=== PATIENT | male | born 1955 | race Caucasian/White ===

== ENCOUNTER 2023-12-24 05:07 | Inpatient (IN) | payer MEDICARE, OTHER, SELFPAY ==
[2023-12-24] VITALS (13 sets, daily range): BP systolic 118–141; BP diastolic 81–98; PULSE 105–113; RESP 18–26; TEMP 36.4–36.9; O2SAT 90–98; BMI 27.8
--- NOTE | ~2023-12-24 | XR_ITS ---
EXAMINATION: XR chest 1V portable Exam Date/Time: 12/26/2023 17:54 FLOWER ARRANGER HISTORY: irregular respirations Comparison: Same date at 2:51 PM and 5:20 AM. FINDINGS/IMPRESSION: Stable lines and tubes. Slightly increased interstitial edema. Stable bibasilar atelectasis or consolidation. Stable small bilateral pleural effusions, greater on the right. Reviewed, dictated and finalized at location K. ER ARRANGER
--- NOTE | ~2023-12-24 | CT_ITS ---
Non-contrast Head CT History: Weakness Technique: Axial non-contrast imaging of the brain was performed. Dose reduction technique was used on this scan by utilizing automated exposure control and iterative reconstruction technique. The dose -length product (DLP) was 681.00 mGy-cm. Findings: There is no evidence of intracranial hemorrhage, mass lesion, or acute infarct. Brain par enchyma appears normal. The ventricles and subarachnoid spaces are normal in size. The calvarium ap pears normal. The visualized paranasal sinuses and mastoid air cells are clear. Impression: No significant abnormality seen. Reviewed, dictated and finalized at location . HT LINE SERVICE ATTENDANT Impression: No significant abnormality seen.
--- NOTE | ~2023-12-24 | XR_ITS ---
Portable chest x-ray Comparison: None Clinical History: Weakness Findings: There is extensive hazy pulmonary disease bilaterally. There is a 2.2 cm somewhat nodular opacity left upper lobe. Probable minimal right pleural effusion. Cardiomediastinal silhouette is st able. Bones and soft tissues are unremarkable. Impression: 2.2 cm nodular opacity left upper lobe. Chest CT recommended to assess for pulmonary nodule, neoplasm is a consideration. Extensive background pulmonary haziness suggest mild pulmonary edema. Minimal right pleural effusion. Reviewed, dictated and finalized at [facility]. NRY SUPERVISOR Impression: 2.2 cm nodular opacity left upper lobe. Chest CT recommended to assess for pulm onary nodule, neoplasm is a consideration. Extensive background pulmonary haziness suggest mild pulmonary edema. Minimal right pleural effusion.
--- NOTE | ~2023-12-24 | XR_ITS ---
XR chest 1V portable 01/02/2024 05:59 Indication: Evaluate pneumonia. Pneumonia. Procedure: AP portable chest Comparison: Comparison to multiple prior studies sequentially, with oldest reviewed study dated 12/26. Findings: Right IJ central line tip in the SVC. Heart size normal for technique. Diffuse bilateral in terstitial infiltrates. There is focal pleural thickening right upper thorax and left apex. There is fissural thickening on the right with right perihilar soft tissue. There is a mass in the left upper lobe, suspicious for malignancy. Impression: 1: Left upper lobe mass, suspicious for bronchogenic carcinoma. 2: Diffuse bilateral interstitial infiltrates unchanged which may represent edema or pneumonia. 3: Prominence of the right hilum, suspicious for lymphadenopathy. 4: Right pleural effusion/pleural thickening. Reviewed, dictated and finalized at location A. ENGINE OPERATOR Impression: 1: Left upper lobe mass, suspicious for bronchogenic carcinoma. 2: Diffuse bilateral interstitial infiltrates unchanged which may represent ed stef or pneumonia. 3: Prominence of the right hilum, suspicious for lymphadenopathy. 4: Right pleural effusion/pleural thickening.
--- NOTE | ~2023-12-24 | XR_ITS ---
MODIFIED ESOPHAGRAM HISTORY: Coughing with thin liquids TECHNIQUE: Modified barium esophagram was performed by speech pathologist under radiologist fluorosco pic guidance. This was recorded on tape. The exam was reviewed on 12/30/2023 11:12 NUCLEAR FUEL ENRICHMENT TECHNICIAN. The DAP for this procedure was 0.3 Gycm2. Fluoroscopy time is 0.5 minutes. FINDINGS: Lateral projection of the cervical spine demonstrates normal alignment. There is reduced laryngeal elevation and tongue base retraction. Reduced pharyngeal squeeze. There is residue in the v allecula and piriform sinuses. There are are multiple episodes of laryngeal penetration with aspirati on.. IMPRESSION: 1: Laryngeal penetration with aspiration. 2: Please refer to speech pathologist report for additional detail. Reviewed, dictated and finalized at location A. EAR FUEL ENRICHMENT TECHNICIAN
--- NOTE | ~2023-12-24 | XR_ITS ---
EXAMINATION: XR chest port-a-cath/central Exam Date/Time: 12/25/2023 15:45 DUMPER OPERATOR HISTORY: central line insertion Comparison: Same date at 3:13 PM. RESULT: Lines, tubes, and devices: Endotracheal tube remains in good position. Subdiaphragmatic NG tube. Rig ht IJ central line terminating over the distal SVC. Lungs and pleura: Increasing, now moderate diffuse reticular and groundglass opacities. Stable right basilar airspace disease, left medial upper lobe opacities, and right upper lung scarring/atelectasi s. Stable bilateral costophrenic angle blunting. Left upper lung nodule. Cardiomediastinal silhouette: Stable, given interval differences in positioning and technique. Other: No acute osseous or upper abdominal finding. IMPRESSION: Right IJ central line, in good position. Worsening pulmonary edema. Reviewed, dictated and finalized at location K. ER OPERATOR
--- NOTE | ~2023-12-24 | XR_ITS ---
EXAM: XR abdomen gastric tube insert DATE: 12/25/2023 15:21 HISTORY: og tube insertion . COMPARISON: CT cap 12/24/2023. FINDINGS: NG tube tip and side port project over the stomach. Moderate right and small left pleural effusions. Right basilar airspace disease. Unremarkable upper abdominal bowel gas pattern. Right neph rolithiasis. IMPRESSION: NG tube, in good position. Reviewed, dictated and finalized at location K. TRUCTION TRADES TEACHER IMPRESSION: NG tube, in good position.
--- NOTE | ~2023-12-24 | CT_ITS ---
Clinical Indication: Sepsis CT Scan of the Chest, Abdomen, and Pelvis with Contrast: Technique: Contiguous sections were acquired throughout the chest, abdomen, and pelvis after intraven ous administration of 100 cc of Omnipaque 350. Dose reduction technique was used on this scan by lachelle pateling automated exposure control and iterative reconstruction technique. The dose-length product (DL P) was 1294.14 mGy-cm. Findings: There is no evidence of any significant mediastinal, hilar or axillary lymphadenopathy. No aortic ane urysm or dissection. No large pulmonary embolus centrally. No pericardial effusion. Moderate to large right pleural effusion present. Small left pleural effusion present. There is a 2.2 cm left upper lobe pulmonary nodule. There is patchy groundglass opacity in the left upper lobe othe rwise, with patchy consolidation and distortion in the right upper lobe. There are numerous, and somewhat confluent, hypodense masses throughout the liver, compatible with ex tensive hepatic metastatic disease. The spleen, pancreas, gallbladder, adrenals and kidneys are withi n normal limits. No evidence of aortic aneurysm. No lymphadenopathy. No bowel obstruction or bowel wall thickening. There is no evidence to suggest acute appendicitis. Possible urinary bladder wall thickening versus underdistention. Prostate gland and seminal vesicles are unremarkable. There is small amount of pelvic ascites. Fat-containing left inguinal hernia presen t. Right inguinal hernia contains a focal loop of small bowel. There are bilateral L5 pars interarticularis defects, with 11 mm anterolisthesis of L5 over S1. Sugge stion of several subtle amorphous sclerotic osseous lesions, suspicious for osseous metastatic diseas e, most notably at T12, T10, T8, and T3. Impression: 2.2 cm left upper lobe pulmonary nodule, highly suspicious for bronchogenic carcinoma, versus other n eoplasm. Extensive hepatic metastatic disease. Suspected subtle osseous metastatic lesions in the spine, as detailed above. Moderate to large right pleural effusion and small right pleural effusion. Patchy consolidation and distortion in the right upper lobe. This could reflect atelectasis or possib ly post therapy/postoperative change. Correlate with any relevant clinical history. Probable mild pulmonary edema versus infection in the left upper lobe. Right inguinal hernia containing a loop of small bowel. No bowel obstruction or bowel wall thickening . Possible cystitis. Correlate with urinalysis. Reviewed, dictated and finalized at location M. L FABRICATOR HELPER Impression: 2.2 cm left upper lobe pulmonary nodule, highly suspicious for bronchogenic car cinoma, versus other neoplasm. Extensive hepatic metastatic disease. Suspected subtle osseous metastatic lesions in the spine, as detailed above. Moderate to large right pleural effusion and small right pleural effusion. Patchy consolidation and distortion in the right upper lobe. This could reflect atelectasis or possibly post therapy/postoperative change. Correlate with any relevant clinical history. Probable mild pulmonary edema versus infection in the left upper lobe. Right inguinal hernia containing a loop of small bowel. No bowel obstruction or bowel wall thickening. Possible cystitis. Correlate with urinalysis.
--- NOTE | ~2023-12-24 | XR_ITS ---
EXAMINATION: XR chest 1V portable DATE: 12/26/2023 05:55 INDICATION: Respiratory failure TECHNIQUE: frontal view of the chest was obtained. COMPARISON: Chest radiograph dated 12/25/2023 FINDINGS: Endotracheal tube tip 2.5 cm above the hima. Nasogastric tube extends below the left hemidiaphragm with distal tip collimated off the study. Right internal jugular central venous catheter with distal tip at the caudal superior vena cava. Minimal decrease in interstitial and patchy airspace opacities throughout the right lung and perihila r predominant opacities opacities in the left lung. Again seen is a masslike opacity left upper lung zone with appearance on CT concerning for malignancy. Small to moderate-sized right pleural effusion. No pneumothorax. The cardiomediastinal silhouette is within normal limits for AP technique. IMPRESSION: 1. Minimal decrease in bilateral interstitial and patchy airspace opacities throughout both lungs, ri ght greater than left consistent with atelectasis, pneumonia, pulmonary edema or most likely some com bination thereof. 2. Small to moderate-sized right pleural effusion. 3. Masslike opacity in the left upper lung zone concerning for CT . Reviewed, dictated and finalized at location A. GATOR SPRINKLING SYSTEM IMPRESSION: 1. Minimal decrease in bilateral interstitial and patchy airspace opacities thr oughout both lungs, right greater than left consistent with atelectasis, pneumo jaylen, pulmonary edema or most likely some combination thereof. 2. Small to moderate-sized right pleural effusion. 3. Masslike opacity in the left upper lung zone concerning for CT .
--- NOTE | ~2023-12-24 | XR_ITS ---
EXAMINATION: [id number] Exam Date/Time: 12/26/2023 14:45 PROFESSOR OF INDUSTRIAL TECHNOLOGY HISTORY: Thoracentesis Comparison: 12/26/2023 at 5:20 AM; CT cap 12/24/2023. RESULT: Lines, tubes, and devices: Endotracheal tube, nasogastric tube, and right IJ central venous line rem ain in good position. Lungs and pleura: Unchanged left upper lobe mass and moderate diffuse reticular opacities. Mild left costophrenic angle blunting. Overall decreased opacities in the right lung and decreased right costo phrenic angle blunting. Subsegmental bibasilar airspace disease. Cardiomediastinal silhouette: Stable. Other: No acute osseous or upper abdominal finding. IMPRESSION: No definite pneumothorax post thoracentesis. Decreased size of the right pleural effusion. Stable nikhil es and tubes. Stable edema and bibasilar atelectasis, infection is not excluded. Possible small left pleural effusion. Reviewed, dictated and finalized at location K. ESSOR OF INDUSTRIAL TECHNOLOGY IMPRESSION: No definite pneumothorax post thoracentesis. Decreased size of the right pleura l effusion. Stable lines and tubes. Stable edema and bibasilar atelectasis, inf ection is not excluded. Possible small left pleural effusion.
--- NOTE | ~2023-12-24 | XR_ITS ---
EXAMINATION: XR chest 1V portable DATE: 12/27/2023 05:47 INDICATION: Respiratory failure TECHNIQUE: frontal view of the chest was obtained. COMPARISON: Chest radiograph dated 12/26/2023 FINDINGS: Endotracheal tube tip 4.1 cm above the hima. Nasogastric tube extends below the left hemidiaphragm with distal tip collimated off the study. Right internal jugular central venous catheter with distal tip at the caudal superior vena cava. Interval improvement in the prior extensive pattern consistent with decreasing pulmonary edema. Addit ional superimposed groundglass and mild patchy airspace opacities in both lungs which could represent atelectasis and/or pneumonia likely superimposed over small bilateral pleural effusions.. Small mass like opacity in the left upper lung zone consistent with malignancy. The cardiomediastinal silhouette is normal. IMPRESSION: 1. Decrease in prior mild pulmonary edema. 2. Persistent bilateral hazy and patchy airspace opacities consistent with likely small bilateral ple ural effusions with associated atelectasis and/or pneumonia. 3. Small masslike opacity in the left upper lung zone concerning for malignancy. Reviewed, dictated and finalized at location A. L TACKER IMPRESSION: 1. Decrease in prior mild pulmonary edema. 2. Persistent bilateral hazy and patchy airspace opacities consistent with like ly small bilateral pleural effusions with associated atelectasis and/or pneumon ia. 3. Small masslike opacity in the left upper lung zone concerning for malignancy .
--- NOTE | ~2023-12-24 | XR_ITS ---
Portable chest x-ray Comparison: 12/27/2023 Clinical History: Respiratory failure Findings: Endotracheal tube, NG tube, and right-sided central venous line are in satisfactory positi ons. There is focal hazy airspace opacity at the left lung apex. Probable mild central congestive corina nge. There is probable thickening of the right upper lobe region. Cardiomediastinal silhouette is st able. Bones and soft tissues are unremarkable. Impression: Focal left upper lobe airspace opacity, compatible with pulmonary nodule as seen on recent CT dated . Pleural thickening at the right upper lobe region, nonspecific, possibly small loculated effusion. Support tubes, as above. Reviewed, dictated and finalized at location . REBUILDER Impression: Focal left upper lobe airspace opacity, compatible with pulmonary nodule as see n on recent CT dated 12/24/2023. Pleural thickening at the right upper lobe region, nonspecific, possibly small loculated effusion. Support tubes, as above.
--- NOTE | ~2023-12-24 | XR_ITS ---
Portable chest x-ray Comparison: 12/28/2023 Clinical History: Respiratory failure Findings: Right IJ line remains in place. Left upper lobe 2 cm pulmonary nodule is present. There is probable mild central congestive change and mild pulmonary edema. Cardiomediastinal silhouette is s table. Bones and soft tissues are unremarkable. Impression: Stable 2 cm left upper lobe pulmonary nodule. Mild central congestive change and mild pulmonary edema. Right IJ line. Reviewed, dictated and finalized at location M. RY TEAM LEADER Impression: Stable 2 cm left upper lobe pulmonary nodule. Mild central congestive change and mild pulmonary edema. Right IJ line.
--- NOTE | ~2023-12-24 | US_ITS ---
EXAMINATION: US thoracentesis DATE: 12/26/2023 14:36 INDICATION: Right pleural effusion TECHNIQUE: The procedure and its risks and benefits were discussed with the patient. Potential risks discussed included bleeding, infection, and pneumothorax. The patient understood the risks and agreed to proceed. The skin was prepped and draped in sterile fashion. 1% lidocaine was used for local anes thesia. Under ultrasound guidance, a 5 Fr catheter with trochar was advanced into the right pleural e ffusion. Fluid was aspirated. The catheter was removed, and a dressing was applied. There were no imm ediate complications. FINDINGS: Ultrasound images demonstrate a large right pleural effusion and the catheter within the fluid. IMPRESSION: 1. Successful ultrasound-guided thoracentesis yielding 1000 mL of yellowish fluid. Reviewed, dictated and finalized at location A. OVOLTAIC FABRICATION TECHNICIAN IMPRESSION: 1. Successful ultrasound-guided thoracentesis yielding 1000 mL of yellowish fl uid.
--- NOTE | ~2023-12-24 | XR_ITS ---
EXAMINATION: XR chest ET placement Exam Date/Time: 12/25/2023 15:10 ACUTE SPECIALIST HISTORY: ET PLACEMENT Comparison: 12/24/2023; CT cap 12/24/2023. RESULT: Lines, tubes, and devices: Endotracheal tube terminating 4.0 cm above the hima. Subdiaphragmatic N G tube. Lungs and pleura: Segmental right basilar airspace disease. Bilateral costophrenic angle blunting, g reater on the right. Left upper lobe mass. Diffuse reticular opacities. Right upper lobe scar. Medial left upper lobe groundglass opacities. Cardiomediastinal silhouette: Stable. Other: No acute osseous or upper abdominal finding. IMPRESSION: Endotracheal tube in good position. Mild edema. Right basilar atelectasis/aspiration favored given th e rapid onset, infection not excluded. Moderate right and small left pleural effusions. Reviewed, dictated and finalized at location K. E SPECIALIST IMPRESSION: Endotracheal tube in good position. Mild edema. Right basilar atelectasis/aspir ation favored given the rapid onset, infection not excluded. Moderate right and small left pleural effusions.
--- NOTE | ~2023-12-24 | XR_ITS ---
Portable chest x-ray Comparison: 01/02/2024 Clinical History: Shortness of breath Findings: Small right pleural effusion present with hazy bilateral perihilar and right basilar airsp miguel disease. Right IJ line unchanged. Stable left upper lobe pulmonary nodule. Cardiomediastinal chaya houette is stable. Bones and soft tissues are unremarkable. Impression: Stable left upper lobe pulmonary nodule measuring approximately 2 cm, suspicious for carcinoma. Probable mild pulmonary edema and small right pleural effusion. Correlate clinically for pneumonia. Reviewed, dictated and finalized at [facility]. PING COORDINATOR Impression: Stable left upper lobe pulmonary nodule measuring approximately 2 cm, suspiciou s for carcinoma. Probable mild pulmonary edema and small right pleural effusion. Correlate clini amber for pneumonia.
--- NOTE | 2023-12-24 05:12 | ECG_ITS ---
Measurements Intervals [place] Rate: 109 P: 17 PA: 120 QRS: -1 QRSD: 102 T: 0 QT: 323 QTc: 437 Interpretive Statements SINUS TACHYCARDIA NONSPECIFIC ST & T-WAVE ABNORMALITY ABNORMAL ECG NO PREVIOUS ECG AVAILABLE FOR COMPARISON Electronically Signed On 12-24-2023 12:39:16 DOORPERSON OR LUGGAGE PORTER by Mic Taylor M.D.
[2023-12-24] MEDS: SODIUM CHLORIDE 0.9% IV 1,000 ML 999 ML IV CONT (05:30)
[2023-12-24 05:53] LABS: Basophils Percent Auto 0.1 % (0.2-1.2); Eosinophils Absolute Auto 0.2 K/mm3 (0-0.3); Eosinophils Percent Auto 1.4 % (0-4.4); Hematocrit 41.4 % (42.0-52.0); Hemoglobin 12.5 g/dL (14.0-18.0); Immature Granulocyte Absolute 0.08 K/mm3 (0.00-0.031); Immature Granulocyte Percent A 0.6 % (0-0.5); Lymphocytes Absolute Auto 1.13 K/mm3 (0.9-3.2); Lymphocytes Percent Auto 8.4 % (18.3-44.2); Mean Corpuscular HGB Conc 30.2 g/dl (32-36); Mean Corpuscular Hemoglobin 26.5 pg (26-34); Mean Corpuscular Volume 87.9 fl (80-100); Mean Platelet Volume 10.8 fl (7.4-10.4); Monocytes Absolute Auto 0.9 K/mm3 (0.1-0.6); Monocytes Percent Auto 6.3 % (2.6-8.5); Neutrophils Absolute Auto 11.2 K/mm3 (1.3-6.7); Neutrophils Percent Auto 83.2 % (45.5-73.1); Platelet Count Result 143 k/mm3 (150-375); Red Blood Count 4.71 M/mm3 (4.6-6.20); Red Cell Distribution Width 19.7 % (11.5-14.5); White Blood Count 13.5 K/mm3 (4.5-10.0)
[2023-12-24 05:57] LABS: Ethanol < 10 mg/dL (<10)
--- NOTE | 2023-12-24 05:58 | ED.WEAKNESS ---
HPI - Weakness General Chief complaint: Weakness Stated complaint: GENERALIZED WEAKNESS Source: patient Limitations: no limitations History of Present Illness HPI Narrative: Patient is a 68-year-old male presents to the emergency department complaining of generalized weakness, nausea, decreased oral intake. Patient states he is feeling generally weak lately. Patient states he has had decreased oral intake for the past 2 days and [place] has not had anything to eat or drink because he has difficulty getting to his food. Patient states he just got a caregiver today was the 1st day having 1 and still feels like he is not thriving. Patient notes that he is been progressively getting more weak and having difficulties with his activities of daily living. Patient admits to a cough productive of white sputum. Patient is to history of smoking and has chronic wheezing. Patient denies chest pain, difficulty breathing, abdominal pain, urinary incontinence, fever, stool incontinence, melena, hematochezia, urinary discomfort, focal weakness, numbness, headache, confusion, vision changes, vomiting, rash, back pain, unilateral lower extremity swelling. Patient admits to some mild diarrhea approximately 3-4 episodes that are nonbloody daily. Patient denies any recent antibiotic use. Related Data Allergies Allergy/AdvReac Type Severity Reaction Status Date / Time No Known Allergies Allergy Verified 12/24/23 05:15 Review of Systems Review of Systems: A 10 system review of systems was completed on the patient and is negative except for what is stated in the HPI. Nursing and ancillary documentation was reviewed. PMFSH Comments At time of signature, I have reviewed and agree with nursing past medical, surgical, social and family history unless otherwise noted. Please see the nursing chart for further information. There is no relevant family history pertinent to the presenting complaint. Exam Narrative: CONST: No acute distress. Well nourished. HENMT: Head is normocephalic and atraumatic. Dry mucous membranes. No posterior oropharynx erythema. EYES: No conjunctival icterus, injection, or pallor. PERRL. extraocular motions intact. NECK: No meningeal signs. RESP: Able to speak in full sentences. Scant end-expiratory wheeze with a mildly prolonged expiratory phase. No focal adventitious breath sounds. Mild tachypnea. No accessory muscle uses for ventilation. CARDIO: Tachycardic rate. Regular rhythm. 2+ DP and radial pulses bilaterally. GI: Nondistended. No tenderness to palpation. Soft. : No CVA tenderness to palpation. SKIN: No rashes or lesions noted on exposed skin. NEURO: Oriented x3. Moves all extremities. No focal neurological deficits. EXTREM/MSK/BACK: No pedal edema. no midline vertebral tenderness to palpation or step-offs. PSYCH: Normal affect. Course Vital Signs Vital signs: Vital Signs Temperature 97.6 F 12/24/23 05:02 Pulse Rate 111 H 12/24/23 05:02 Respiratory Rate 23 H 12/24/23 05:02 Blood Pressure 136/98 H 12/24/23 05:02 Pulse Oximetry 95 12/24/23 05:02 Oxygen Delivery Room Air 12/24/23 05:02 Temperature 97.6 F 12/24/23 05:02 Pulse Rate 113 H 12/24/23 06:44 Respiratory Rate 24 H 12/24/23 06:44 Blood Pressure 141/98 H 12/24/23 06:44 Pulse Oximetry 96 12/24/23 06:44 Oxygen Delivery Room Air 12/24/23 05:02 MDM - Weakness MDM Narrative Medical decision making narrative: Patient presents with the above complaint. Initial vitals are remarkable for Tachycardia and tachypnea. Physical examination as noted above. Plan discussed: laboratory analysis, EKG, chest x-ray, CT of the head without contrast, continues cardiac monitoring, continuous pulse oximetry, prednisone 60 mg p.o., DuoNeb breathing treatment, 1 L bolus IV fluids normal saline for hydration, blood cultures. Less than 30ml/kg crystalloid bolus was ordered because it would be detrimental or harmful
[2023-12-24 06:00] LABS: Alanine Aminotransferase 190 U/L (6-50); Albumin Level 3.4 g/dL (3.5-5.1); Alkaline Phosphatase 192 U/L (38-126); Anion Gap 7 mmol/L (8-16); Aspartate Amino Transferase 40 U/L (17-59); Bilirubin,Total 1.2 mg/dL (0.2-1.3); Blood Urea Nitrogen 12 mg/dL (9-20); Calcium 8.4 mg/dL (8.4-10.2); Carbon Dioxide 27 mmol/L (22-30); Chloride 105 mmol/L (98-107); Estimated CRCL calculation 82 ml/min; Estimated Glomerular Filt Rate > 60; Glucose 206 mg/dL (65-110); Lipase 182 U/L (23-300); Magnesium 1.9 mg/dL (1.6-2.3); Sodium 139 mmol/L (137-145)
[2023-12-24 06:02] LABS: INR 1.1
[2023-12-24 06:03] LABS: Partial Thromboplastin Time 33.8 SECONDS (22.3-36.8)
[2023-12-24 06:06] LABS: Lactic Acid Reflex 2.1 mmol/L (0.7-2.0)
[2023-12-24 06:09] LABS: Troponin I 0.034 ng/mL (0.000-0.034)
[2023-12-24] MEDS: IPRATROPIUM 0.5 MG/ALBUTEROL SULFATE 2.5 MG AMPUL.NEB 3 ML 6 ML INHALATION (06:14)
[2023-12-24 06:21] LABS: Creatine Kinase 75 U/L (55-170)
[2023-12-24 06:34] LABS: Influenza A QL RT-PCR Negative (Negative); Influenza B QL RT-PCR Negative (Negative); RSV RNA, RT-PCR Negative (Negative); SARS-CoV-2 RNA PCR Negative (Negative)
[2023-12-24 06:55] LABS: Appearance Urine Cloudy (Clear); Bacteria Urine Rare /hpf; Bilirubin Urine Negative (Negative); Blood Urine 2+ (Negative); Budding Yeast Urine Present /hpf; Color Urine Dark Yellow (Yellow); Glucose Urine UA Trace mg/dL (Negative); Ketones Urine Trace mg/dL (Negative); Leukocyte Esterase Ur 2+ LEU/UL (Negative); Need Manual Microscopic Reviewed; Nitrate Urine Negative (Negative); Protein Urine 2+ mg/dL (Negative); Specific Grav Ur 1.025 (1.001-1.035); Squamous Epithelial Cell Urine Occasional /hpf (Few); WBC Urine >100 /hpf; pH Urine 5.5 (5.0-9.0)
[2023-12-24 07:00] LABS: Add Urine Microscopic? YES
[2023-12-24] MEDS: predniSONE 20 MG TABLET 60 MG PO (07:05)
[2023-12-24 07:11] LABS: CRP 16.2 mg/dL (<1.0)
--- NOTE | 2023-12-24 07:15 | PC.NURSE ---
Report given to ROSALEE Martell at this time. Pt resting in bed comfortably on monitor. Pt updated on status.
[2023-12-24 07:26] LABS: Procalcitonin 0.2 ng/mL
[2023-12-24 08:44] LABS: Reflex Lactic Acid Yes or No Add Lactic
[2023-12-24] MEDS: SODIUM CHLORIDE 0.9% IV 1,000 ML 125 ML IV CONT ×2 (10:23→19:17)
[2023-12-24 11:27] LABS: Glucose Point of Care 235 mg/dl (65-105)
--- NOTE | 2023-12-24 13:29 | ADMGEN ---
This patient, Shahzad Smith, was admitted to 3 [facility] Surg Room 331-01. Patient/family oriented to hospital policies and general routines including ID bracelet, bed and alarms, visiting hours, pain management, procedures, bathroom and other care routines, personal items, smoking policy, room service/diet, and visiting hours. Information on how to activate the Rapid Response Team has been discussed. Patient/Family are encouraged to report perceived risks to care and to ask questions if they do not understand what they are told or what they should do. Report from Marylin in the ER.
[2023-12-24 16:43] LABS: Glucose Point of Care 367 mg/dl (65-105)
--- NOTE | 2023-12-24 17:52 | PC.NURSE ---
This nurse called and told Dr. Trimble twice about pt BS being 235 at lunch and 367 for dinner. told this nurse that he would put order in at lunch time. This nurse was told by Dr. Trimble at dinner to call Jasmine LARSON. This nurse called Dr. Burroughs about this issue. This nurse still does not have orders for insulin. Pt takes metformin at home twice a day.
[2023-12-24] MEDS: MIRTAZAPINE 15 MG TABLET PO (19:53)
[2023-12-24] MEDS: rOPINIRole HCL 0.25 MG TABLET 0.75 MG PO (19:56)
[2023-12-24 20:54] LABS: Glucose Point of Care 355 mg/dl (65-105)
[2023-12-24] MEDS: INSULIN ASPART (*BKC) 100 UNITS/ML SUB-Q (20:56)
--- NOTE | 2023-12-24 23:31 | PM.IMHP ---
H&P: HPI History of Present Illness Date/Time: 12/24/23 at 21:45 Chief Complaint: Increased weakness Narrative: 68-year-old male with a past medical history of liver cancer with metastases to bone, COPD, essential hypertension, type 2 diabetes mellitus and diabetic peripheral neuropathy who presented to the ER from home via EMS due to progressive weakness and inability care for himself. The patient reports he was diagnosed with liver cancer last urine has been receiving chemotherapy treatments every 3-4 weeks at the [facility]. His last chemotherapy treatment was at the end of October. He is scheduled to have chemotherapy again on the . He reports that he has 2-3 loose stools a day which is unchanged from his baseline with brown stools. Over the last several days he has now developed recurrent vomiting. He stated that he had a EGD at the [facility] last week which demonstrated no ulcers or obstruction. His emesis is frequently dark in color. He reports that his stools are chronically dark in color due to chronic iron supplementation. He reports that he has just become progressively weaker in over the last 4-5 days has become so weak that he cannot even stand up to walk to get to the food. He had called EMS multiple times to his home in the last 2-3 days to help in. He states that he feels like he is starving. He is reported increased weakness over the course of several months. He denies any difficulty with urination, symptoms of urinary retention or chest pain. He denies a history of cardiac disease or heart failure. He has had a prior stroke and has chronic right-sided weakness. The patient was on CPAP at the time my evaluation. He reports he is chronically on CPAP at night for sleep. He has labored respirations noted he states that this is chronic. He reports that his breathing feels unchanged from baseline. He has not been having any cough congestion lower extremity swelling or orthopnea. Review of Systems Review of Systems: 12 systems were reviewed with pertinent positives and negatives per HPI. Except as documented in the HPI, all other systems were reviewed and are negative. [facility] Past Medical History Medical History (Updated 12/25/23 @ 00:00 by Dianne Rodrigues DO) Anxiety COPD (chronic obstructive pulmonary disease) CVA (cerebral vascular accident) (~2017) Residual right-sided weakness Diabetic peripheral neuropathy Hepatocellular carcinoma metastatic to bone (~2019) Obstructive sleep apnea on CPAP Type 2 diabetes mellitus Surgical History Surgical History (Updated 12/24/23 @ 23:45 by Dianne Rodrigues DO) Status post cataract extraction of both eyes with insertion of intraocular lens (~2020) Family History Family History (Updated 12/24/23 @ 13:31 by Crista Ellis RN) Mother Diabetes mellitus Father Cancer Social History Social History (Updated 12/24/23 @ 23:46 by Dianne Rodrigues DO) Social History: Patient reports that he served in the [employer] for 8 years. He receives his medical care at the [place]. he lives alone. He ambulates with a walker. He smoked less than 1 pack of cigarettes per day but started smoking as the teenager and quit and 2022. He never drank 2 at excess and quit drinking completely after he left the [employer]. He denies any illicit substance use. Code status: Full code per nursing report Patient does have a living will in place. Smoking status: Former smoker Alcohol intake: former Substance use: former Substance use type: marijuana Last use: 12/24/22 Do You Feel Safe in your Home?: No Lack of Transportation: YES Lack of Food: Never True Current Housing: I Have Housing Concerned About Future Housing: YES Difficulty Paying Gas/Electric Bills: No Difficulty Paying for Meds: No Currently Unemployed: No Education: High School Diploma/GED Difficulty w/ Childcare or Family Care: No Spiritual care concerns: No Meds Home Medications an
[2023-12-25] VITALS (33 sets, daily range): BP systolic 84–143; BP diastolic 59–106; PULSE 76–109; RESP 11–27; TEMP 35.4–36.9; O2SAT 78–100
--- NOTE | 2023-12-25 | ECHO_ITS ---
Patient Info Name: Shahzad Smith Age: 68 years : 1955 Gender: Male Ht: 67 in Wt: 180 lbs BSA: 1.98 m2 HR: 54 bpm BP: 121 / 99 mmHg Heart Rhythm: Sinus Rhythm Technical Quality: Fair Exam Date: 12/25/2023 1:23 PM Exam Location: Echo Lab Patient Status: Inpatient Admit Date: 12/24/2023 Staff Ordering Physician: Zaire Crowell APRN It Help Desk Associate: Maki Mccloud RDCS Attending Provider: Shahzad Trimble MD Referring Physician: Socrates MANDUJANO; Exam Type: CA echo doppler color flow Study Info Indications - pleural effusion and dyspnea Complete two-dimensional, color flow and Doppler transthoracic echocardiogram is performed. Summary 1. Complete two-dimensional, color flow and Doppler transthoracic echocardiogram is performed. 2. Four-chamber dilated cardiomyopathy. 3. Markedly reduced left ventricular systolic function with stigmata of low cardiac output, reduced mitral leaflet excursion and pre closure. 4. Mild mitral regurgitation resulting from annular dilation. Left Ventricle Left ventricular chamber dimension is severely enlarged. Left ventricular systolic function is severely reduced, estimated at <15%. Right Ventricle Right ventricular chamber dimension is mildly enlarged. Right ventricular systolic function is reduced. Left Atria Left atrial chamber dimension is mildly enlarged. Right Atria Right atrial chamber dimension is mildly enlarged. Aortic Valve The aortic valve is normal. Pulmonic Valve The pulmonic valve is normal. Mitral Valve The mitral valve has normal leaflets. There is mild to moderate mitral valve regurgitation. Tricuspid Valve The tricuspid valve leaflets are normal. There is mild tricuspid valve regurgitation. Pericardium/Pleural The pericardium appears normal. Aorta The aortic root size at the sinus of Valsalva is normal. Left Ventricular Outflow Tract Name Value Normal LVOT 2D LVOT Diameter 1.9 cm LVOT Doppler LVOT Peak Gradient 2 mmHg LVOT Mean Gradient 1 mmHg LVOT VTI 8 cm LVOT VTI/AV VTI Ratio 0.6 LVOT Stroke Volume 24 ml LVOT CO 2.3 l/min LVOT CI 1.2 l/min/m2 Pulmonic Valve Name Value Normal RVOT Doppler RVOT Peak Gradient 0 mmHg PV Doppler PV Peak Gradient 1 mmHg Mitral Valve Name Value Normal MV Doppler MV Decel [place] 315 cm/s2 MV PHT 67 ms
[2023-12-25] MEDS: AZITHROMYCIN 500 MG/NS 250 ML 500 MG/250 ML BAG 250 MG IVPB ×2 (00:27→23:17)
[2023-12-25] MEDS: IPRATROPIUM 0.5 MG/ALBUTEROL SULFATE 2.5 MG AMPUL.NEB 3 ML INHALATION ×4 (02:00→20:53)
[2023-12-25] MEDS: SODIUM CHLORIDE 0.9% IV 1,000 ML 100 ML IV CONT ×2 (05:27→12:55)
[2023-12-25 06:37] LABS: Hematocrit 35.7 % (42.0-52.0); Hemoglobin 10.7 g/dL (14.0-18.0); Mean Corpuscular Hemoglobin 26.1 pg (26-34); Mean Corpuscular Volume 87.1 fl (80-100); Mean Platelet Volume 11.2 fl (7.4-10.4); Platelet Count Result 136 k/mm3 (150-375); Red Cell Distribution Width 19.6 % (11.5-14.5); White Blood Count 16.2 K/mm3 (4.5-10.0)
[2023-12-25 06:46] LABS: Alanine Aminotransferase 129 U/L (6-50); Albumin Level 2.9 g/dL (3.5-5.1); Alkaline Phosphatase 151 U/L (38-126); Anion Gap 5 mmol/L (8-16); Aspartate Amino Transferase 30 U/L (17-59); Bilirubin,Total 0.7 mg/dL (0.2-1.3); Blood Urea Nitrogen 14 mg/dL (9-20); Calcium 7.8 mg/dL (8.4-10.2); Carbon Dioxide 24 mmol/L (22-30); Chloride 107 mmol/L (98-107); Estimated CRCL calculation 73 ml/min; Estimated Glomerular Filt Rate > 60; Glucose 288 mg/dL (65-110); Potassium 4.4 mmol/L (3.4-5.0); Sodium 136 mmol/L (137-145)
[2023-12-25 06:56] LABS: Hemoglobin A1C 8.5 % (<5.7)
[2023-12-25 07:47] LABS: Glucose Point of Care 282 mg/dl (65-105)
[2023-12-25] MEDS: ASPIRIN 81 MG ENTERIC TABLET PO (08:52)
[2023-12-25] MEDS: METOPROLOL TARTRATE 25 MG TABLET PO (08:52)
[2023-12-25] MEDS: FOLIC ACID 1 MG TABLET PO (08:52)
[2023-12-25] MEDS: MIRTAZAPINE 7.5 MG TABLET PO (08:52)
[2023-12-25] MEDS: PANTOPRAZOLE 40 MG TABLET PO (08:52)
[2023-12-25] MEDS: GABAPENTIN 100 MG CAPSULE PO ×2 (08:52→12:24)
[2023-12-25] MEDS: metFORMIN HCL 500 MG TABLET 1000 MG PO (08:52)
[2023-12-25] MEDS: INSULIN ASPART (*BKC) 100 UNITS/ML SUB-Q ×4 (09:01→20:25)
[2023-12-25] MEDS: ALBUTEROL SULFATE NEB 2.5 MG/3 ML INH INHALATION (10:20)
[2023-12-25] MEDS: LORazepam (*CRX) 1 MG TABLET PO (10:40)
[2023-12-25] MEDS: PROCHLORPERAZINE EDISYLATE 10 MG/2 ML VIAL IV PUSH (11:15)
[2023-12-25] MEDS: ENOXAPARIN 40 MG/0.4 ML SYRINGE SUB-Q (11:15)
--- NOTE | 2023-12-25 11:38 | PM.IMPN ---
Progress Note: A&P Assessment and Plan (1) Sepsis: Qualifiers: Sepsis acute organ dysfunction status: without acute organ dysfunction Sepsis type: sepsis due to unspecified organism Qualified Code(s): A41.9 - Sepsis, unspecified organism Code(s): A41.9 - Sepsis, unspecified organism Status: Acute Assessment and Plan: Rocephin and azithromycin for UTI/possible pneumonia (2) Anxiety: Code(s): F41.9 - Anxiety disorder, unspecified Status: Acute Assessment and Plan: Severe anxiety. Ordered p.r.n. and Ativan. Increased oxygen as patient states he wears 3 liters/minute nasal at home. (3) Pleural effusion, right: Code(s): J90 - Pleural effusion, not elsewhere classified Status: Acute Assessment and Plan: Ordered IV Lasix, stop IV fluids, Ordered Echocardiogram. Patient may require IR drainage. (4) Hepatocellular carcinoma metastatic to bone: Onset Date: ~2019 Code(s): C79.51 - Secondary malignant neoplasm of bone; C22.0 - Liver cell carcinoma Status: Acute Assessment and Plan: Significant metastatic disease to liver with Mets to the bone as well large lung nodule, undergoing chemotherapy but currently on hold (5) Adult failure to thrive: Code(s): R62.7 - Adult failure to thrive Status: Acute Assessment and Plan: Severe weakness at home unable to care himself requires placement. [facility] (6) Abnormal finding on urinalysis: Code(s): R82.90 - Unspecified abnormal findings in urine Status: Acute Assessment and Plan: Rocephin pending urine culture (7) Dehydration: Code(s): E86.0 - Dehydration Status: Acute Assessment and Plan: Improved status post IV fluids. IV fluids discontinued due to moderate to large right pleural effusion. Ordered echocardiogram and IV Lasix (8) Type 2 diabetes mellitus with hyperglycemia: Qualifiers: Diabetes mellitus manager intermediate insulin use: without chcf use Qualified Code(s): E11.65 - Type 2 diabetes mellitus with hyperglycemia Code(s): E11.65 - Type 2 diabetes mellitus with hyperglycemia Status: Acute Assessment and Plan: Hyperglycemia currently, possibly stress/infection plus steroid induced. ACHS fingerstick glucose. A1c 8.5 (9) Obstructive sleep apnea on CPAP: Code(s): G47.33 - Obstructive sleep apnea (adult) (pediatric) Status: Acute Assessment and Plan: Autopap available (10) COPD (chronic obstructive pulmonary disease): Qualifiers: COPD type: unspecified COPD Qualified Code(s): J44.9 - Chronic obstructive pulmonary disease, unspecified Code(s): J44.9 - Chronic obstructive pulmonary disease, unspecified Status: Acute Assessment and Plan: Continue home oxygen and azithromycin Time Spent With Patient Time with patient: Greater than 35 minutes Subjective Date/time seen: 12/25/23 11:38 Interval history: Patient complaining of extreme anxiety and wanting albuterol treatment for shortness of breath. Patient reports he is overly short breath but the albuterol tends to. Patient also nausea with saliva emesis. Ordered Ativan and IV Compazine. Review of Systems Review of Systems: ROS unobtainable: Yes unobtainable due to mental status (Severe anxiety) Exam Narrative: Weight 80.8 kg BMI 27.9 Const: Other: Chronically ill-appearing, debilitated, height weight proportionate, appears older than stated age HENMT: Other: Dry mucous membranes, edentulous, no oral pharyngeal erythema, head is normocephalic atraumatic Eyes: Other: Pupils equal and reactive, marked conjunctival pallor, no scleral icterus Neck: Other: No JVD, supple, nontender Resp: Other: Tachypneic, accessory muscle use, expiratory wheezing left lung, expiratory wheezing and significant crackles in the right lung C
[2023-12-25 11:42] LABS: Glucose Point of Care 290 mg/dl (65-105)
[2023-12-25] MEDS: LORazepam INJ (*CRX) 2 MG/ML VIAL 1 MG IV PUSH (12:52)
[2023-12-25] MEDS: FUROSEMIDE INJ 40 MG/4 ML VIAL IV PUSH (14:00)
[2023-12-25 14:43] LABS: Alveolar/Arterial O2 Gradient 189.8 mmHg; Base Excess ABG -6.2 mEq/l (+/-2.0); Fractional Inspired Oxygen 40 %; HCO3 ABG 18.8 mEq/l (22.0-26.0); Oxygen Content ABG 14.7 %vol (16.0-22.0); PCO2 ABG 35.5 mmHg (35.0-45.0); PO2 ABG 54.6 mmHg (80.0-100.0); PO2 FiO2 Ratio Arterial Blood 1.37 %; Total Hemoglobin 12.4 g/dL (12.0-18.0); pH ABG 7.342 (7.350-7.450)
[2023-12-25 14:44] LABS: Glucose Point of Care 239 mg/dl (65-105)
[2023-12-25 14:46] LABS: Site Drawn RIGHT RADIAL
[2023-12-25 14:47] LABS: Device NASAL CANNULA; Modified Allen's Test Pass
[2023-12-25] MEDS: SODIUM CHLORIDE 0.9% IV 1,000 ML 999 ML IV CONT (15:00)
[2023-12-25] MEDS: MIDAZOLAM HCL (*CRX) 2 MG/2 ML VIAL 4 MG IV PUSH (15:00)
[2023-12-25 15:03] LABS: Oxyhemoglobin 84.5 % THb (90.0-100.0)
--- NOTE | 2023-12-25 15:09 | WPDPROCEDUR ---
Procedures Intubation Intubation Date: 12/25/23 Intubation Time: 15:00 Consent: Patient full code, spoke to patient's brother Naldo who reinforced full code status and gave permission for intubation Sedative: etomidate (4 mg Versed prior to etomidate) Mg given: 20 Paralytic: rocuronium Mg given: 50 Laryngoscope: other (Glidescope) ET tube size: 7.5 Tube secured depth (cm): 23 Tube secured location: teeth Tube placement confirmation: visualized tube passing through cords, equal breath sounds bilaterally, no breath sounds over epigastrium and confirmation by capnometry Patient tolerated procedure: well Intubation complications: none and hypotension (prior to procedure) Additional comments: Dr. Corley at bedside to casey intubation
[2023-12-25] MEDS: ETOMIDATE 20 MG/10 ML AMPUL IV PUSH (15:35)
[2023-12-25] MEDS: ROCURONIUM BROMIDE 50 MG/5 ML VIAL IV PUSH (15:35)
--- NOTE | 2023-12-25 15:38 | PCPTNOTE ---
attempted PT evaluation ~ 1425. RN was with pt and he was having medical issues, rapid response was called and pt was moved to ICU. PT eval order discharged.
--- NOTE | 2023-12-25 15:41 | PC.NURSE ---
This patient, Shahzad Smith, was transferred to ICU-3 on 12/25/23 at 1542. Personal belongings sent with patient. Report given to Yari TURK. Appropriate documentation sent with patient.
--- NOTE | 2023-12-25 15:46 | WPDCNINT ---
Assessment and Plan Assessment and plan (1) Acute respiratory failure: Code(s): J96.00 - Acute respiratory failure, unspecified whether with hypoxia or hypercapnia Status: Acute Assessment and Plan: Acute on chronic multifactorial Respiratory failure secondary to COPD exacerbation, encephalopathy, large right pleural effusion, pneumonia, lung nodule Chest CT Impression: 2.2 cm left upper lobe pulmonary nodule, highly suspicious for bronchogenic carcinoma, versus other neoplasm. Extensive hepatic metastatic disease. Suspected subtle osseous metastatic lesions in the spine, as detailed above. Moderate to large right pleural effusion and small right pleural effusion. Patchy consolidation and distortion in the right upper lobe. This could reflect atelectasis or possibly post therapy/postoperative change. Correlate with any relevant clinical history. Probable mild pulmonary edema versus infection in the left upper lobe. Right inguinal hernia containing a loop of small bowel. No bowel obstruction or bowel wall thickening. Possible cystitis. Correlate with urinalysis. Patient now emergently intubated and placed on mechanical ventilation. Ventilator settings and post intubation chest x-ray reviewed. ET tube in acceptable position ABGs ordered Low tidal volume ventilation strategy to prevent volutrauma Will attempt SBT when ready to wean. Continue bronchodilators, start Solu-Medrol Will request IR for thoracentesis on the right Hold diuretics as patient is hypertensive Antibiotics as below (2) Pleural effusion, right: Code(s): J90 - Pleural effusion, not elsewhere classified Status: Acute Assessment and Plan: See above (3) Hypotension: Code(s): I95.9 - Hypotension, unspecified Status: Acute Assessment and Plan: Patient became hypotensive post intubation which could be transient secondary to sedation versus sepsis Will give 1 L fluid bolus as patient appears to have developed volume overload from the fluids that he received earlier Will start Levophed infusion to maintain mean arterial pressure Will give 25% albumin Check lactic acid level,, BNP, echo (4) Sepsis: Qualifiers: Sepsis acute organ dysfunction status: without acute organ dysfunction Sepsis type: sepsis due to unspecified organism Qualified Code(s): A41.9 - Sepsis, unspecified organism Code(s): A41.9 - Sepsis, unspecified organism Status: Acute Assessment and Plan: Patient has findings suggestive he pneumonia on the CT scan and UA suggestive of UTI Although his procalcitonin level is low, his WBCs elevated He is on Rocephin azithromycin which will be continued Blood cultures urine culture pending Check sputum cultures IV fluids and Levophed as above (5) COPD (chronic obstructive pulmonary disease): Qualifiers: COPD type: unspecified COPD Qualified Code(s): J44.9 - Chronic obstructive pulmonary disease, unspecified Code(s): J44.9 - Chronic obstructive pulmonary disease, unspecified Status: Acute Assessment and Plan: See above (6) Type 2 diabetes mellitus with hyperglycemia: Qualifiers: Diabetes mellitus intermediate card tender insulin use: without fpc use Qualified Code(s): E11.65 - Type 2 diabetes mellitus with hyperglycemia Code(s): E11.65 - Type 2 diabetes mellitus with hyperglycemia Status: Acute Assessment and Plan: Continue sliding scale insulin (7) Hepatocellular carcinoma metastatic to bone: Onset Date: ~2019 Code(s): C79.51 - Secondary malignant neoplasm of bone; C22.0 - Liver cell carcinoma Status: Acute Assessment and Plan: No intervention at this time (8) Acute UTI: Code(s): N39.0 - Urinary tract infection, site not specified Status: Acute Assessment and Plan: See above (9) CVA (cerebral vascular accident): Onset Date: ~2017 Code(s): I63.9 - Cerebral infar
--- NOTE | 2023-12-25 15:48 | WPDPROCEDUR ---
Procedures Central Line Placement Right IJ: Central Line Date: 12/25/23 Central Line Time: 15:30 Performed Emergently - Given emergent patient condition, temporal constraints may have precluded informed consent.: Yes Consent: Procedure done emergently as patient was intubated needed multiple infusions including vasopressors. Poor IV access and no family available immediately for consent. Procedure done as medical necessity as patient was full code Time Out Performed: Yes Patient Position: supine Patient placed on monitor/pulse ox: Yes Provider Prep: mask, sterile gown, sterile gloves, Max. sterile barrier precautions, cap and hand hygiene with conventional soap/water or alcohol based hand rub Central line prep: Povidone-Iodine 1% Sterile US Technique with sterile gel/sterile probe covers: Yes Central line lumen inserted: triple Length (cm): 16 Depth of Insertion (cm): 16 Post Procedure: sutured in place, good blood return, all ports aspirated, flushed, capped, transparent dressing and aseptic technique maintained throughout procedure Post procedure x-ray: tip of catheter in good position and no pneumothorax seen Patient tolerated procedure: well Complications: none
[2023-12-25] MEDS: MIDAZOLAM 100MG/NS 100ML(*CRX) 100 MG/100 ML BAG IV CONT (16:18)
[2023-12-25] MEDS: NOREPINEPHRINE 8 MG/D5W 250 ML 8 MG/250 ML BAG 9.38 MG IV CONT (16:18)
[2023-12-25] MEDS: FENTANYL 2,500MCG/NS250ML(*CRX 2,500 MCG/250 ML BAG IV CONT (16:19)
[2023-12-25 16:28] LABS: Lactic Acid Reflex 3.2 mmol/L (0.7-2.0)
[2023-12-25 16:38] LABS: NT Pro B Type Natriuretic Pept 19300 pg/mL (19.9-100)
--- NOTE | 2023-12-25 16:48 | PC.NURSE ---
This patient, Shahzad Smith, was received from [facility] on 12/25/[address] Corley at bedside, decision made to intubated and place a central line. Patient/family oriented to unit policies and routines
[2023-12-25 16:53] LABS: Alveolar/Arterial O2 Gradient 331.4 mmHg; Base Excess ABG -7.5 mEq/l (+/-2.0); Carboxyhemoglobin 0.3 % THb (0-2.0); Fractional Inspired Oxygen 100 %; HCO3 ABG 17.3 mEq/l (22.0-26.0); Methemoglobin ABG 0.4 %THb (0-1.5); Oxygen Content ABG 17.4 %vol (16.0-22.0); Oxygen Saturation ABG 99.7 % (95.0-100.0); Oxyhemoglobin 98.3 % THb (90.0-100.0); PCO2 ABG 32.8 mmHg (35.0-45.0); PO2 ABG 348.8 mmHg (80.0-100.0); PO2 FiO2 Ratio Arterial Blood 3.49 %; Total Hemoglobin 11.9 g/dL (12.0-18.0); pH ABG 7.339 (7.350-7.450)
[2023-12-25 16:56] LABS: Arterial Blood Gas PEEP 5 cmH2O; Arterial Blood Gas Tidal Volume 450 ml; Arterial Blood Gas Vent Mode CMV; Arterial Blood Gas Ventilator rate 20 /MIN; Device VENTILATOR; Modified Allen's Test Pass; Site Drawn LEFT RADIAL
[2023-12-25 17:07] LABS: Glucose Point of Care 230 mg/dl (65-105)
[2023-12-25] MEDS: ALBUMIN HUMAN 25% 25 GM/100 ML 100 ML IVPB (17:20)
[2023-12-25 18:21] LABS: Glucose 253 mg/dL (65-110); Lactate Dehydrogenase 809 U/L (120-246)
[2023-12-25 19:17] LABS: Reflex Lactic Acid Yes or No Add Lactic
[2023-12-25 20:03] LABS: Lactic Acid 2.5 mmol/L (0.7-2.0)
[2023-12-25] MEDS: MINERAL OIL/WHITE PETROLATUM OINTMENT 1 APPLIC EACH EYE (20:05)
[2023-12-25 20:28] LABS: Glucose Point of Care 202 mg/dl (65-105)
[2023-12-25 21:31] LABS: MRSA (PCR) DETECTED (NOT DETECTE)
[2023-12-25] MEDS: CENTRAL LINE FLUSH 10 ML IV PUSH (22:31)
[2023-12-26] VITALS (41 sets, daily range): BP systolic 76–114; BP diastolic 55–94; PULSE 76–107; RESP 17–30; TEMP 35.7–37.8; O2SAT 91–100
[2023-12-26] MEDS: ALBUMIN HUMAN 25% 25 GM/100 ML 100 ML IVPB ×3 (00:22→11:59)
[2023-12-26 00:51] LABS: Glucose Point of Care 152 mg/dl (65-105)
[2023-12-26] MEDS: IPRATROPIUM 0.5 MG/ALBUTEROL SULFATE 2.5 MG AMPUL.NEB 3 ML INHALATION ×4 (02:29→20:16)
[2023-12-26 04:23] LABS: Glucose Point of Care 123 mg/dl (65-105)
[2023-12-26] MEDS: CENTRAL LINE FLUSH 10 ML IV PUSH ×3 (05:41→21:01)
[2023-12-26 05:48] LABS: Hematocrit 33.4 % (42.0-52.0); Hemoglobin 10.2 g/dL (14.0-18.0); Mean Corpuscular HGB Conc 30.5 g/dl (32-36); Mean Corpuscular Hemoglobin 26.4 pg (26-34); Mean Corpuscular Volume 86.3 fl (80-100); Mean Platelet Volume 10.5 fl (7.4-10.4); Platelet Count Result 103 k/mm3 (150-375); Red Blood Count 3.87 M/mm3 (4.6-6.20); Red Cell Distribution Width 19.4 % (11.5-14.5); White Blood Count 14.9 K/mm3 (4.5-10.0)
[2023-12-26 05:51] LABS: Alveolar/Arterial O2 Gradient 112.1 mmHg; Base Excess ABG -2.6 mEq/l (+/-2.0); Carboxyhemoglobin 0.3 % THb (0-2.0); Fractional Inspired Oxygen 30 %; HCO3 ABG 21.7 mEq/l (22.0-26.0); Methemoglobin ABG 0.3 %THb (0-1.5); Oxygen Content ABG 14.2 %vol (16.0-22.0); Oxygen Saturation ABG 91.2 % (95.0-100.0); Oxyhemoglobin 89.1 % THb (90.0-100.0); PCO2 ABG 35.7 mmHg (35.0-45.0); PO2 ABG 59.9 mmHg (80.0-100.0); Reduced Hemoglobin 10.3 %THb (0-5.0); Total Hemoglobin 11.3 g/dL (12.0-18.0); pH ABG 7.401 (7.350-7.450)
[2023-12-26 05:52] LABS: Arterial Blood Gas PEEP 5 cmH2O; Arterial Blood Gas Tidal Volume 450 ml; Arterial Blood Gas Vent Mode CMV; Arterial Blood Gas Ventilator rate 20 /MIN; Device VENTILATOR; Modified Allen's Test Unable to perform; Site Drawn RIGHT RADIAL
[2023-12-26 06:00] LABS: Alanine Aminotransferase 87 U/L (6-50); Albumin Level 3.1 g/dL (3.5-5.1); Alkaline Phosphatase 119 U/L (38-126); Anion Gap 5 mmol/L (8-16); Aspartate Amino Transferase 37 U/L (17-59); Bilirubin,Total 0.9 mg/dL (0.2-1.3); Blood Urea Nitrogen 19 mg/dL (9-20); Calcium 8.2 mg/dL (8.4-10.2); Carbon Dioxide 25 mmol/L (22-30); Chloride 108 mmol/L (98-107); Estimated CRCL calculation 65 ml/min; Estimated Glomerular Filt Rate > 60; Glucose 114 mg/dL (65-110); Magnesium 1.8 mg/dL (1.6-2.3); Potassium 3.8 mmol/L (3.4-5.0); Sodium 138 mmol/L (137-145)
[2023-12-26 07:51] LABS: Glucose Point of Care 85 mg/dl (65-105)
[2023-12-26] MEDS: MINERAL OIL/WHITE PETROLATUM OINTMENT 1 APPLIC EACH EYE ×2 (08:32→20:05)
[2023-12-26] MEDS: PANTOPRAZOLE 40 MG TABLET PO (08:32)
[2023-12-26] MEDS: methylPREDNISolone SOD SUCC 125 MG VIAL 60 MG IV PUSH (08:32)
[2023-12-26] MEDS: FOLIC ACID 1 MG TABLET PO (08:33)
[2023-12-26] MEDS: ASPIRIN 81 MG ENTERIC TABLET PO (08:33)
[2023-12-26] MEDS: MAGNESIUM SULF 1 GM/D5W 100 ML 1 GM/100 ML BAG IVPB (08:33)
--- NOTE | 2023-12-26 10:40 | WPDINTPN ---
Progress Note: A&P Assessment and Plan (1) Acute respiratory failure: Code(s): J96.00 - Acute respiratory failure, unspecified whether with hypoxia or hypercapnia Status: Acute Assessment and Plan: Acute on chronic multifactorial Respiratory failure secondary to COPD exacerbation, encephalopathy, large right pleural effusion, pneumonia, lung nodule Chest CT Impression: 2.2 cm left upper lobe pulmonary nodule, highly suspicious for bronchogenic carcinoma, versus other neoplasm. Extensive hepatic metastatic disease. Suspected subtle osseous metastatic lesions in the spine, as detailed above. Moderate to large right pleural effusion and small right pleural effusion. Patchy consolidation and distortion in the right upper lobe. This could reflect atelectasis or possibly post therapy/postoperative change. Correlate with any relevant clinical history. Probable mild pulmonary edema versus infection in the left upper lobe. Right inguinal hernia containing a loop of small bowel. No bowel obstruction or bowel wall thickening. Possible cystitis. Correlate with urinalysis. 12/25 Patient was emergently intubated and placed on mechanical ventilation. Ventilator settings, ABG, chest x-ray reviewed. ET tube in acceptable position Echo shows EF less than 15% with dilated cardiomyopathy Tidal volume decreased to 420 Continue bronchodilators, start Solu-Medrol Plan for IR to do ultrasound-guided thoracentesis on the right today Hold diuretics as patient is hypotensive but eventually he will need diuretics Antibiotics as below (2) Pleural effusion, right: Code(s): J90 - Pleural effusion, not elsewhere classified Status: Acute Assessment and Plan: See above (3) Hypotension: Code(s): I95.9 - Hypotension, unspecified Status: Acute Assessment and Plan: Patient became hypotensive post intubation which could be transient secondary to sedation, sepsis and cardiogenic Patient was given 1 L fluid bolus as patient appears to have developed volume overload from the fluids that he received earlier Patient was started levophed infusion to maintain mean arterial pressure which will be continued Continue 25% albumin lactic acid level is improving, [id number], echo showed dilated cardiomyopathy with EF less than 15% Summary ? 1. Complete two-dimensional, color flow and Doppler transthoracic echocardiogram is performed. ? 2. Four-chamber dilated cardiomyopathy. ? 3. Markedly reduced left ventricular systolic function with stigmata of low cardiac output, reduced mitral leaflet excursion and pre closure. ? 4. Mild mitral regurgitation resulting from annular dilation. (4) Sepsis: Qualifiers: Sepsis acute organ dysfunction status: without acute organ dysfunction Sepsis type: sepsis due to unspecified organism Qualified Code(s): A41.9 - Sepsis, unspecified organism Code(s): A41.9 - Sepsis, unspecified organism Status: Acute Assessment and Plan: Patient has findings suggestive he pneumonia on the CT scan and UA suggestive of UTI Although his procalcitonin level is low, his WBCs elevated He is on Rocephin azithromycin which will be continued Blood sputum urine culture pending IV fluids and Levophed as above (5) COPD (chronic obstructive pulmonary disease): Qualifiers: COPD type: unspecified COPD Qualified Code(s): J44.9 - Chronic obstructive pulmonary disease, unspecified Code(s): J44.9 - Chronic obstructive pulmonary disease, unspecified Status: Acute Assessment and Plan: See above (6) Type 2 diabetes mellitus with hyperglycemia: Qualifiers: Diabetes mellitus terminal block assembler insulin use: without residential use Qualified Code(s): E11.65 - Type 2 diabetes mellitus with hyperglycemia Code(s): E11.65 - Type 2 diabetes mellitus with hyperglycemia Status: Acute Assessment and Plan: Continue sliding scale insulin (7) Hepatocellular carcinom
[2023-12-26 11:42] LABS: Glucose Point of Care 133 mg/dl (65-105)
[2023-12-26 14:18] LABS: pH Pleural Fluid 7.407 (7.210-7.500)
[2023-12-26 17:18] LABS: Glucose Point of Care 163 mg/dl (65-105)
[2023-12-26 18:30] LABS: Appearance Pleural Fluid Hazy (Clear); Color Pleural Fluid Yellow (Colorless); Nucleated Cell Pleural Fluid 212 /uL (0-1000); Pleural fluid source Pleural fluid; RBC Pleural Fluid 2000 /uL (0-0)
[2023-12-26] MEDS: FUROSEMIDE INJ 40 MG/4 ML VIAL IV PUSH (18:31)
[2023-12-26 18:51] LABS: Neutrophils Pleural Fluid 73 % (0-25)
[2023-12-26 18:52] LABS: Lymphocytes Pleural Fluid 12 %; Monocytes Pleural Fluid 15 %
[2023-12-26 19:43] LABS: Glucose Point of Care 198 mg/dl (65-105)
[2023-12-26] MEDS: AZITHROMYCIN 500 MG/NS 250 ML 500 MG/250 ML BAG 250 MG IVPB (23:59)
[2023-12-27] VITALS (53 sets, daily range): BP systolic 76–113; BP diastolic 61–76; PULSE 88–110; RESP 16–22; TEMP 36.1–37.9; O2SAT 92–98
[2023-12-27] MEDS: INSULIN ASPART (*BKC) 100 UNITS/ML SUB-Q ×6 (00:03→20:17)
[2023-12-27 00:12] LABS: Glucose Point of Care 259 mg/dl (65-105)
[2023-12-27] MEDS: FENTANYL 2,500MCG/NS250ML(*CRX 2,500 MCG/250 ML BAG 7.5 MCG IV CONT (02:06)
[2023-12-27] MEDS: IPRATROPIUM 0.5 MG/ALBUTEROL SULFATE 2.5 MG AMPUL.NEB 3 ML INHALATION ×4 (02:45→20:02)
[2023-12-27] MEDS: MIDAZOLAM 100MG/NS 100ML(*CRX) 100 MG/100 ML BAG IV CONT (04:15)
[2023-12-27 04:16] LABS: Glucose Point of Care 253 mg/dl (65-105)
[2023-12-27 05:06] LABS: Hematocrit 33.4 % (42.0-52.0); Hemoglobin 10.1 g/dL (14.0-18.0); Mean Corpuscular HGB Conc 30.2 g/dl (32-36); Mean Corpuscular Hemoglobin 26.6 pg (26-34); Mean Corpuscular Volume 88.1 fl (80-100); Mean Platelet Volume 11.6 fl (7.4-10.4); Platelet Count Result 121 k/mm3 (150-375); Red Blood Count 3.79 M/mm3 (4.6-6.20); Red Cell Distribution Width 19.1 % (11.5-14.5); White Blood Count 14.3 K/mm3 (4.5-10.0)
[2023-12-27 05:17] LABS: Alanine Aminotransferase 67 U/L (6-50); Albumin Level 3.4 g/dL (3.5-5.1); Alkaline Phosphatase 111 U/L (38-126); Anion Gap 11 mmol/L (8-16); Aspartate Amino Transferase 26 U/L (17-59); Bilirubin,Total 0.7 mg/dL (0.2-1.3); Blood Urea Nitrogen 28 mg/dL (9-20); Calcium 8.4 mg/dL (8.4-10.2); Carbon Dioxide 22 mmol/L (22-30); Chloride 105 mmol/L (98-107); Estimated CRCL calculation 54 ml/min; Estimated Glomerular Filt Rate > 60; Glucose 271 mg/dL (65-110); Magnesium 2.1 mg/dL (1.6-2.3); Potassium 4.9 mmol/L (3.4-5.0); Sodium 138 mmol/L (137-145)
[2023-12-27 05:27] LABS: Alveolar/Arterial O2 Gradient 84.1 mmHg; Base Excess ABG -5.6 mEq/l (+/-2.0); Carboxyhemoglobin 0.4 % THb (0-2.0); Fractional Inspired Oxygen 30 %; HCO3 ABG 21.2 mEq/l (22.0-26.0); Methemoglobin ABG 0.4 %THb (0-1.5); Oxygen Content ABG 14.4 %vol (16.0-22.0); Oxygen Saturation ABG 93.1 % (95.0-100.0); PCO2 ABG 46.9 mmHg (35.0-45.0); PO2 ABG 74.7 mmHg (80.0-100.0); PO2 FiO2 Ratio Arterial Blood 2.49 %; Reduced Hemoglobin 7.2 %THb (0-5.0); Total Hemoglobin 11.1 g/dL (12.0-18.0)
[2023-12-27] MEDS: CENTRAL LINE FLUSH 10 ML IV PUSH ×2 (05:28→20:26)
[2023-12-27 05:30] LABS: Device VENTILATOR; Modified Allen's Test Pass; Site Drawn RIGHT RADIAL; pH ABG 7.272 (7.350-7.450)
[2023-12-27 05:31] LABS: Arterial Blood Gas PEEP 5 cmH2O; Arterial Blood Gas Tidal Volume 420 ml; Arterial Blood Gas Vent Mode CMV; Arterial Blood Gas Ventilator rate 20 /MIN
[2023-12-27] MEDS: FOLIC ACID 1 MG TABLET PO (08:12)
[2023-12-27] MEDS: methylPREDNISolone SOD SUCC 125 MG VIAL 60 MG IV PUSH (08:12)
[2023-12-27] MEDS: ASPIRIN 81 MG ENTERIC TABLET PO (08:12)
[2023-12-27] MEDS: PANTOPRAZOLE 40 MG TABLET PO (08:12)
[2023-12-27] MEDS: MINERAL OIL/WHITE PETROLATUM OINTMENT 1 APPLIC EACH EYE ×2 (08:13→20:25)
[2023-12-27] MEDS: BUMETANIDE INJ 1 MG/4 ML VIAL IV PUSH ×2 (08:31→16:28)
[2023-12-27] MEDS: INSULIN GLARGINE (*BKC) 100 UNITS/ML 15 UNITS SUB-Q (08:31)
[2023-12-27] MEDS: DOBUTamine 250 MG/D5W 250 ML 250 MG/250 ML BAG 12.41 MG IV CONT (08:32)
[2023-12-27 09:04] LABS: Glucose Point of Care 263 mg/dl (65-105)
[2023-12-27] MEDS: NOREPINEPHRINE 8 MG/D5W 250 ML 8 MG/250 ML BAG 5.63 MG IV CONT (09:09)
--- NOTE | 2023-12-27 09:19 | WPDINTPN ---
Progress Note: A&P Assessment and Plan (1) Acute respiratory failure: Code(s): J96.00 - Acute respiratory failure, unspecified whether with hypoxia or hypercapnia Status: Acute Assessment and Plan: Acute on chronic multifactorial Respiratory failure secondary to COPD exacerbation, encephalopathy, large right pleural effusion, pneumonia, lung nodule Chest CT Impression: 2.2 cm left upper lobe pulmonary nodule, highly suspicious for bronchogenic carcinoma, versus other neoplasm. Extensive hepatic metastatic disease. Suspected subtle osseous metastatic lesions in the spine, as detailed above. Moderate to large right pleural effusion and small right pleural effusion. Patchy consolidation and distortion in the right upper lobe. This could reflect atelectasis or possibly post therapy/postoperative change. Correlate with any relevant clinical history. Probable mild pulmonary edema versus infection in the left upper lobe. Right inguinal hernia containing a loop of small bowel. No bowel obstruction or bowel wall thickening. Possible cystitis. Correlate with urinalysis. 12/25 Patient was emergently intubated and placed on mechanical ventilation. Ventilator settings, ABG, chest x-ray reviewed. ET tube is in acceptable position Chest x-ray still shows, opacities and masslike opacity Echo shows EF less than 15% with dilated cardiomyopathy Tidal volume increased to 450 mL Continue bronchodilators, start Solu-Medrol 12/26 ultrasound-guided thoracentesis done on the right side on 1 L fluid was removed Continue diuretics. Start dobutamine infusion Antibiotics as below (2) Pleural effusion, right: Code(s): J90 - Pleural effusion, not elsewhere classified Status: Acute Assessment and Plan: See above (3) Hypotension: Code(s): I95.9 - Hypotension, unspecified Status: Acute Assessment and Plan: Patient became hypotensive post intubation which could be transient secondary to sedation, sepsis and cardiogenic Patient was given 1 L fluid bolus as patient appears to have developed volume overload from the fluids that he received earlier Patient was started levophed infusion to maintain mean arterial pressure which will be continued Off 25% albumin lactic acid level is improving, [id number], echo showed dilated cardiomyopathy with EF less than 15% Off Levophed. Start dobutamine infusion Summary ? 1. Complete two-dimensional, color flow and Doppler transthoracic echocardiogram is performed. ? 2. Four-chamber dilated cardiomyopathy. ? 3. Markedly reduced left ventricular systolic function with stigmata of low cardiac output, reduced mitral leaflet excursion and pre closure. ? 4. Mild mitral regurgitation resulting from annular dilation. (4) Cardiomyopathy: Code(s): I42.9 - Cardiomyopathy, unspecified Status: Acute Assessment and Plan: Echo as above. Etiology unknown but four-chamber dilation suggest nonischemic teacher. Records from [facility] have been requested on are available yet Start dobutamine infusion to allow for diuresis Consult cardiology (5) Sepsis: Qualifiers: Sepsis acute organ dysfunction status: without acute organ dysfunction Sepsis type: sepsis due to unspecified organism Qualified Code(s): A41.9 - Sepsis, unspecified organism Code(s): A41.9 - Sepsis, unspecified organism Status: Acute Assessment and Plan: Patient has findings suggestive he pneumonia on the CT scan and UA suggestive of UTI Although his procalcitonin level is low, his WBCs elevated He is on Rocephin azithromycin which will be continued Blood sputum urine culture is growing Petra Add fluconazole IV fluids and vasopressors as above (6) COPD (chronic obstructive pulmonary disease): Qualifiers: COPD type: unspecified COPD Qualified Code(s): J44.9 - Chronic obstructive pulmonary disease, unspecified Code(s): J44.9 - Chronic obstructive pulmonary disease, unspecified
[2023-12-27] MEDS: FLUCONAZOLE 100 MG TABLET 200 MG FEED TUBE (10:06)
[2023-12-27 12:15] LABS: Glucose Point of Care 289 mg/dl (65-105)
[2023-12-27 16:33] LABS: Glucose Point of Care 340 mg/dl (65-105)
[2023-12-27 20:11] LABS: Glucose Point of Care 346 mg/dl (65-105)
[2023-12-27] MEDS: DOBUTamine 250 MG/D5W 250 ML 250 MG/250 ML BAG 24.81 MG IV CONT (20:19)
[2023-12-27] MEDS: AZITHROMYCIN 500 MG/NS 250 ML 500 MG/250 ML BAG 250 MG IVPB (23:18)
[2023-12-28] VITALS (38 sets, daily range): BP systolic 98–124; BP diastolic 59–86; PULSE 0–110; RESP 20–22; TEMP 36.8–37.9; O2SAT 94–99; BMI 28.6
[2023-12-28 00:06] LABS: Glucose Point of Care 414 mg/dl (65-105)
[2023-12-28] MEDS: INSULIN HUMAN REGULAR (*BKC) 100 UNITS/ML 12 UNITS SUB-Q (00:24)
[2023-12-28 01:38] LABS: Glucose Point of Care 402 mg/dl (65-105)
[2023-12-28] MEDS: IPRATROPIUM 0.5 MG/ALBUTEROL SULFATE 2.5 MG AMPUL.NEB 3 ML INHALATION ×4 (02:36→20:05)
[2023-12-28 04:20] LABS: Hematocrit 29.8 % (42.0-52.0); Hemoglobin 9.2 g/dL (14.0-18.0); Immature Platelet Fraction Pct 4.8 % (0.9-11.2); Mean Corpuscular HGB Conc 30.9 g/dl (32-36); Mean Corpuscular Hemoglobin 26.4 pg (26-34); Mean Corpuscular Volume 85.4 fl (80-100); Mean Platelet Volume 10.9 fl (7.4-10.4); Platelet Count Result 85 k/mm3 (150-375); Red Blood Count 3.49 M/mm3 (4.6-6.20); Red Cell Distribution Width 18.9 % (11.5-14.5)
[2023-12-28 04:22] LABS: Glucose Point of Care 421 mg/dl (65-105)
[2023-12-28 04:29] LABS: Alanine Aminotransferase 51 U/L (6-50); Alkaline Phosphatase 153 U/L (38-126); Anion Gap 3 mmol/L (8-16); Aspartate Amino Transferase 24 U/L (17-59); Bilirubin,Total 0.5 mg/dL (0.2-1.3); Blood Urea Nitrogen 32 mg/dL (9-20); Calcium 8.5 mg/dL (8.4-10.2); Carbon Dioxide 30 mmol/L (22-30); Chloride 103 mmol/L (98-107); Estimated CRCL calculation 59 ml/min; Estimated Glomerular Filt Rate > 60; Glucose 408 mg/dL (65-110); Potassium 4.1 mmol/L (3.4-5.0); Sodium 136 mmol/L (137-145)
[2023-12-28] MEDS: INSULIN HUMAN REGULAR (*BKC) 100 UNITS/ML 10 UNITS IV PUSH (05:01)
[2023-12-28] MEDS: CENTRAL LINE FLUSH 10 ML IV PUSH ×3 (05:05→20:01)
[2023-12-28 05:43] LABS: Alveolar/Arterial O2 Gradient 87.6 mmHg; Base Excess ABG 0.5 mEq/l (+/-2.0); Carboxyhemoglobin 0.9 % THb (0-2.0); Fractional Inspired Oxygen 30 %; HCO3 ABG 24.3 mEq/l (22.0-26.0); Methemoglobin ABG 0.4 %THb (0-1.5); Oxygen Content ABG 18.6 %vol (16.0-22.0); Oxygen Saturation ABG 96.6 % (95.0-100.0); Oxyhemoglobin 94.7 % THb (90.0-100.0); PCO2 ABG 36.5 mmHg (35.0-45.0); PO2 ABG 83.4 mmHg (80.0-100.0); PO2 FiO2 Ratio Arterial Blood 2.78 %; Total Hemoglobin 13.9 g/dL (12.0-18.0); pH ABG 7.441 (7.350-7.450)
[2023-12-28 05:44] LABS: Device VENTILATOR; Modified Allen's Test Pass; Site Drawn RIGHT RADIAL
[2023-12-28 05:45] LABS: Arterial Blood Gas PEEP 5 cmH2O; Arterial Blood Gas Tidal Volume 450 ml; Arterial Blood Gas Vent Mode CMV; Arterial Blood Gas Ventilator rate 20 /MIN
[2023-12-28] MEDS: DOBUTamine 250 MG/D5W 250 ML 250 MG/250 ML BAG 24.81 MG IV CONT ×2 (06:07→16:17)
[2023-12-28 07:41] LABS: Glucose Point of Care 382 mg/dl (65-105)
[2023-12-28] MEDS: ENOXAPARIN 40 MG/0.4 ML SYRINGE SUB-Q (08:50)
[2023-12-28] MEDS: BUMETANIDE INJ 1 MG/4 ML VIAL IV PUSH ×2 (08:50→16:18)
[2023-12-28] MEDS: methylPREDNISolone SOD SUCC 125 MG VIAL 60 MG IV PUSH (08:50)
[2023-12-28] MEDS: FLUCONAZOLE 100 MG TABLET 200 MG FEED TUBE (08:51)
[2023-12-28] MEDS: FOLIC ACID 1 MG TABLET PO (08:51)
[2023-12-28] MEDS: ASPIRIN 81 MG ENTERIC TABLET PO (08:51)
[2023-12-28] MEDS: MINERAL OIL/WHITE PETROLATUM OINTMENT 1 APPLIC EACH EYE ×2 (08:52→20:01)
[2023-12-28] MEDS: PANTOPRAZOLE 40 MG TABLET PO (08:52)
[2023-12-28] MEDS: INSULIN GLARGINE (*BKC) 100 UNITS/ML 30 UNITS SUB-Q ×2 (08:54→20:14)
[2023-12-28] MEDS: metFORMIN HCL 500 MG TABLET 1000 MG PO ×2 (08:54→16:18)
[2023-12-28] MEDS: INSULIN ASPART (*BKC) 100 UNITS/ML SUB-Q ×4 (08:55→20:14)
--- NOTE | 2023-12-28 09:11 | WPDINTPN ---
Progress Note: A&P Assessment and Plan (1) Acute respiratory failure: Code(s): J96.00 - Acute respiratory failure, unspecified whether with hypoxia or hypercapnia Status: Acute Assessment and Plan: Acute on chronic multifactorial Respiratory failure secondary to COPD exacerbation, encephalopathy, large right pleural effusion, pneumonia, lung nodule Chest CT Impression: 2.2 cm left upper lobe pulmonary nodule, highly suspicious for bronchogenic carcinoma, versus other neoplasm. Extensive hepatic metastatic disease. Suspected subtle osseous metastatic lesions in the spine, as detailed above. Moderate to large right pleural effusion and small right pleural effusion. Patchy consolidation and distortion in the right upper lobe. This could reflect atelectasis or possibly post therapy/postoperative change. Correlate with any relevant clinical history. Probable mild pulmonary edema versus infection in the left upper lobe. Right inguinal hernia containing a loop of small bowel. No bowel obstruction or bowel wall thickening. Possible cystitis. Correlate with urinalysis. 12/25 Patient was emergently intubated and placed on mechanical ventilation. Ventilator settings, ABG, chest x-ray reviewed. ET tube is in acceptable position Chest x-ray still shows, opacities and masslike opacity Echo shows EF less than 15% with dilated cardiomyopathy Tidal volume increased to 450 mL Continue bronchodilators, start Solu-Medrol 12/26 ultrasound-guided thoracentesis done on the right side on 1 L fluid was removed 12/27 Continue diuretics. Start dobutamine infusion 12/28 perform sedation holiday and evaluate for weaning trial. Continue diuretics. His sputum is growing MRSA and Pseudomonas Antibiotics as below (2) Pleural effusion, right: Code(s): J90 - Pleural effusion, not elsewhere classified Status: Acute Assessment and Plan: See above (3) Hypotension: Code(s): I95.9 - Hypotension, unspecified Status: Acute Assessment and Plan: Patient became hypotensive post intubation which could be transient secondary to sedation, sepsis and cardiogenic Patient was given 1 L fluid bolus as patient appears to have developed volume overload from the fluids that he received earlier Patient was started levophed infusion to maintain mean arterial pressure which will be continued Off 25% albumin lactic acid level is improving, [id number], echo showed dilated cardiomyopathy with EF less than 15% 12/27 patient was started on dobutamine infusion Off Levophed. Continue dobutamine infusion Summary ? 1. Complete two-dimensional, color flow and Doppler transthoracic echocardiogram is performed. ? 2. Four-chamber dilated cardiomyopathy. ? 3. Markedly reduced left ventricular systolic function with stigmata of low cardiac output, reduced mitral leaflet excursion and pre closure. ? 4. Mild mitral regurgitation resulting from annular dilation. (4) Cardiomyopathy: Code(s): I42.9 - Cardiomyopathy, unspecified Status: Acute Assessment and Plan: Echo as above. Etiology unknown but four-chamber dilation suggest nonischemic teacher. Records from [place] have been requested on are available yet 12/27 started dobutamine infusion to allow for diuresis Consulted cardiology (5) Sepsis: Qualifiers: Sepsis acute organ dysfunction status: without acute organ dysfunction Sepsis type: sepsis due to unspecified organism Qualified Code(s): A41.9 - Sepsis, unspecified organism Code(s): A41.9 - Sepsis, unspecified organism Status: Acute Assessment and Plan: Patient has findings suggestive he pneumonia on the CT scan and UA suggestive of UTI Although his procalcitonin level is low, his WBCs elevated He he was started on Rocephin azithromycin Blood sputum urine culture is growing Petra. Added fluconazole 12/28 sputum culture growing MRSA and Pseudomonas. Change antibiotics to vancomycin IV fluids and vasopress
[2023-12-28] MEDS: VANCOMYCIN 2,000 MG/NS 500 ML 2,000 MG/500 ML BAG 250 MG IVPB (10:55)
[2023-12-28 11:37] LABS: Glucose Point of Care 384 mg/dl (65-105)
[2023-12-28] MEDS: cefTAZidime 2 GM/NS 50 ML 2 GM/50 ML BAG IVPB ×2 (12:18→20:00)
--- NOTE | 2023-12-28 13:21 | PM.CNCAR ---
Assessment and Plan Assessment and plan (1) Cardiomyopathy: Qualifiers: Cardiomyopathy type: dilated Qualified Code(s): I42.0 - Dilated cardiomyopathy Code(s): I42.9 - Cardiomyopathy, unspecified Status: Acute Assessment and Plan: Severe LV systolic dysfunction EF less than 15% with four-chamber enlargement consistent with dilated cardiomyopathy. Duration etiology remains unclear at this time. Patient was receiving chemotherapy in which his regimen remains unknown at this time. Will need to assess for cardiac toxicity with regards to his regimen and or further evidence of history of cardiomyopathy and or CHF. Continue dobutamine Cardio pressure support diuresis. He is responding well to 5 microgram/kilogram per minute along with Bumex 1 mg IV b.i.d.. Continue accurate input and output, daily weight. When he is hemodynamically stable anticipate resuming beta-ifeoma therapy as well as Entresto if able to tolerate. Ideally we consider initiation of Jardiance 10 mg daily, spironolactone 25 mg daily as well. He is not a candidate at this time. Continue to monitor closely. Patient is critically ill with multiple comorbidities. Prognosis poor. Will review prior cardiovascular records when available as requested. Patient is critically ill. EF less than 15%. Etiology remains unclear although seems to be less likely multivessel CAD given clinical circumstances and more likely nonischemic if this cannot be confirmed at this time. Patient is not a candidate for invasive angiography nor noninvasive ischemic stress testing at this time. Patient high risk for life-threatening or potential fatal ventricular arrhythmias given severe LV dysfunction. Given poor prognosis in light of metastatic hepatocellular carcinoma candidacy for ICD implantation highly questionable even if patient is able make a full recovery. Recommendation to follow. (2) Shock: Code(s): R57.9 - Shock, unspecified Status: Acute Assessment and Plan: Resolved. Norepinephrine was discontinued. He remains on dobutamine for cardiovascular support which he is tolerating well. Continue IV diuretics with vancomycin and ceftazidime for pneumonia and UTI. Leukocytosis has resolved. Patient had a low-grade temperature last night. Blood cultures today negative. (3) Acute respiratory failure: Qualifiers: Respiratory failure complication: unspecified whether with hypoxia or hypercapnia Qualified Code(s): J96.00 - Acute respiratory failure, unspecified whether with hypoxia or hypercapnia Code(s): J96.00 - Acute respiratory failure, unspecified whether with hypoxia or hypercapnia Status: Acute Assessment and Plan: Acute on chronic multifactorial contribution with history of O2 dependent COPD, underlying pneumonia, severe LV dysfunction CHF. Patient also has evidence of probable metastatic cancer to the lung as well with 2.2 cm left upper lobe pulmonary nodule highly suspicious for bronchogenic carcinoma. There was evidence for extensive hepatic metastatic disease as well. He has moderate to large right pleural effusion and small left pleural effusion. (4) CHF (congestive heart failure): Qualifiers: Heart failure type: systolic Heart failure chronicity: acute on chronic Qualified Code(s): I50.23 - Acute on chronic systolic (congestive) heart failure Code(s): I50.9 - Heart failure, unspecified Status: Acute Assessment and Plan: As above, continue dobutamine 5 microgram/kilogram per minute along with Bumex 1 mg IV b.i.d.. Accurate input and output daily weight. Avoid AV itzel blocking agents at this time. Continue for now as patient is tolerating therapy and responding reasonably well. Plan to wean was patient is able to be extubated. Repeat chest x-ray in a.m.. Continue telemetry. Monitor for 2 tachyarrhythmias on dobutamine. Currently he remains in sinus rhythm and sinus tachycardi
--- NOTE | 2023-12-28 14:48 | PM.IMPN ---
Progress Note: A&P Assessment and Plan (1) Acute respiratory failure: Qualifiers: Respiratory failure complication: unspecified whether with hypoxia or hypercapnia Qualified Code(s): J96.00 - Acute respiratory failure, unspecified whether with hypoxia or hypercapnia Code(s): J96.00 - Acute respiratory failure, unspecified whether with hypoxia or hypercapnia Status: Acute Assessment and Plan: Acute on chronic multifactorial Respiratory failure secondary to COPD exacerbation, encephalopathy, large right pleural effusion, pneumonia, lung nodule Chest CT Impression: 2.2 cm left upper lobe pulmonary nodule, highly suspicious for bronchogenic carcinoma, versus other neoplasm. Extensive hepatic metastatic disease. Suspected subtle osseous metastatic lesions in the spine, as detailed above. Moderate to large right pleural effusion and small right pleural effusion. Patchy consolidation and distortion in the right upper lobe. This could reflect atelectasis or possibly post therapy/postoperative change. Correlate with any relevant clinical history. Probable mild pulmonary edema versus infection in the left upper lobe. Right inguinal hernia containing a loop of small bowel. No bowel obstruction or bowel wall thickening. Possible cystitis. Correlate with urinalysis. 12/25 Patient was emergently intubated and placed on mechanical ventilation. Ventilator settings, ABG, chest x-ray reviewed. ET tube is in acceptable position Chest x-ray still shows, opacities and masslike opacity Echo shows EF less than 15% with dilated cardiomyopathy Tidal volume increased to 450 mL Continue bronchodilators, start Solu-Medrol 12/26 ultrasound-guided thoracentesis done on the right side on 1 L fluid was removed 12/27 Continue diuretics. Start dobutamine infusion 12/28 perform sedation holiday and evaluate for weaning trial. Continue diuretics. His sputum is growing MRSA and Pseudomonas Antibiotics as below (2) Pleural effusion, right: Code(s): J90 - Pleural effusion, not elsewhere classified Status: Acute Assessment and Plan: See above (3) Hypotension: Code(s): I95.9 - Hypotension, unspecified Status: Acute Assessment and Plan: Patient became hypotensive post intubation which could be transient secondary to sedation, sepsis and cardiogenic Patient was given 1 L fluid bolus as patient appears to have developed volume overload from the fluids that he received earlier Patient was started levophed infusion to maintain mean arterial pressure which will be continued Off 25% albumin lactic acid level is improving, [id number], echo showed dilated cardiomyopathy with EF less than 15% 12/27 patient was started on dobutamine infusion Off Levophed. Continue dobutamine infusion Summary ? 1. Complete two-dimensional, color flow and Doppler transthoracic echocardiogram is performed. ? 2. Four-chamber dilated cardiomyopathy. ? 3. Markedly reduced left ventricular systolic function with stigmata of low cardiac output, reduced mitral leaflet excursion and pre closure. ? 4. Mild mitral regurgitation resulting from annular dilation. (4) Cardiomyopathy: Qualifiers: Cardiomyopathy type: dilated Qualified Code(s): I42.0 - Dilated cardiomyopathy Code(s): I42.9 - Cardiomyopathy, unspecified Status: Acute Assessment and Plan: Echo as above. Etiology unknown but four-chamber dilation suggest nonischemic teacher. Records from [place] have been requested on are available yet 12/27 started dobutamine infusion to allow for diuresis Consulted cardiology (5) Sepsis: Qualifiers: Sepsis acute organ dysfunction status: without acute organ dysfunction Sepsis type: sepsis due to unspecified organism Qualified Code(s): A41.9 - Sepsis, unspecified organism Code(s): A41.9 - Sepsis, unspecified organism Status: Acute Assessment and Plan: Patient has findings suggestive he pneumonia on t
[2023-12-28 16:41] LABS: Glucose Point of Care 357 mg/dl (65-105)
[2023-12-28 21:40] LABS: Glucose Point of Care 291 mg/dl (65-105)
[2023-12-28 23:43] LABS: Glucose Point of Care 245 mg/dl (65-105)
[2023-12-29] VITALS (26 sets, daily range): BP systolic 106–132; BP diastolic 71–92; PULSE 81–115; RESP 14–23; TEMP 36.5–36.9; O2SAT 88–100
[2023-12-29] MEDS: INSULIN ASPART (*BKC) 100 UNITS/ML SUB-Q (00:06)
[2023-12-29] MEDS: DOBUTamine 250 MG/D5W 250 ML 250 MG/250 ML BAG 24.81 MG IV CONT (02:25)
--- NOTE | 2023-12-29 02:27 | PC.NURSE ---
Addendum entered by Ilya Muse RN 12/29/23 02:32: Sedation and restraints were discontinued as soon as assistance arrived and before being placed on BiPAP. Original Note: Just after the 0100 hour the patient's vent alarm started sounding and after responding the patient was found to have self-extubated. RN asked for assistance and relief charge nurse responded along with 2 other RNs on floor and MOLECULAR SPECTROSCOPIST. MD arrived shortly afterwards. PT was initially placed on non-rebreather after clearing airway, and subsequently put on bipap per hospitalist. Sedation and Restraints were discontinued. Patient alert and following commands. Vitals have remained stable.
[2023-12-29] MEDS: IPRATROPIUM 0.5 MG/ALBUTEROL SULFATE 2.5 MG AMPUL.NEB 3 ML INHALATION ×4 (02:43→20:30)
[2023-12-29] MEDS: cefTAZidime 2 GM/NS 50 ML 2 GM/50 ML BAG IVPB ×3 (04:40→20:12)
[2023-12-29 04:51] LABS: Alveolar/Arterial O2 Gradient 71.4 mmHg; Base Excess ABG 6.8 mEq/l (+/-2.0); Carboxyhemoglobin 0.3 % THb (0-2.0); Fractional Inspired Oxygen 30 %; HCO3 ABG 31.4 mEq/l (22.0-26.0); Methemoglobin ABG 0.3 %THb (0-1.5); Oxygen Content ABG 14.7 %vol (16.0-22.0); Oxygen Saturation ABG 97.1 % (95.0-100.0); Oxyhemoglobin 95.3 % THb (90.0-100.0); PCO2 ABG 45.3 mmHg (35.0-45.0); PO2 ABG 89.3 mmHg (80.0-100.0); PO2 FiO2 Ratio Arterial Blood 2.98 %; Reduced Hemoglobin 4.1 %THb (0-5.0); Total Hemoglobin 10.9 g/dL (12.0-18.0); pH ABG 7.459 (7.350-7.450)
[2023-12-29 04:52] LABS: Device NON-INVASIVE VENT; Modified Allen's Test Pass; Site Drawn RIGHT RADIAL
[2023-12-29 04:53] LABS: Non-Invasive Expiratory Pressure 6 CMH2O; Non-Invasive Inspiratory Pressure 12 CMH2O; Non-Invasive Vent Rate 14 /MIN
[2023-12-29] MEDS: CENTRAL LINE FLUSH 10 ML IV PUSH ×3 (05:44→22:27)
[2023-12-29 05:45] LABS: Hematocrit 31.2 % (42.0-52.0); Hemoglobin 9.4 g/dL (14.0-18.0); Immature Platelet Fraction Pct 7.6 % (0.9-11.2); Mean Corpuscular HGB Conc 30.1 g/dl (32-36); Mean Corpuscular Hemoglobin 26.5 pg (26-34); Mean Corpuscular Volume 87.9 fl (80-100); Mean Platelet Volume 12.2 fl (7.4-10.4); Platelet Count Result 83 k/mm3 (150-375); Red Blood Count 3.55 M/mm3 (4.6-6.20); Red Cell Distribution Width 18.6 % (11.5-14.5); White Blood Count 11.1 K/mm3 (4.5-10.0)
[2023-12-29 05:46] LABS: Glucose Point of Care 115 mg/dl (65-105)
[2023-12-29 05:59] LABS: Alanine Aminotransferase 46 U/L (6-50); Albumin Level 3.1 g/dL (3.5-5.1); Alkaline Phosphatase 129 U/L (38-126); Anion Gap 5 mmol/L (8-16); Aspartate Amino Transferase 25 U/L (17-59); Bilirubin,Total 0.6 mg/dL (0.2-1.3); Blood Urea Nitrogen 39 mg/dL (9-20); Calcium 8.6 mg/dL (8.4-10.2); Carbon Dioxide 34 mmol/L (22-30); Chloride 102 mmol/L (98-107); Estimated CRCL calculation 73 ml/min; Estimated Glomerular Filt Rate > 60; Glucose 123 mg/dL (65-110); Magnesium 1.9 mg/dL (1.6-2.3); Potassium 3.8 mmol/L (3.4-5.0); Sodium 141 mmol/L (137-145)
[2023-12-29] MEDS: FOLIC ACID 1 MG TABLET PO (08:32)
[2023-12-29] MEDS: BUMETANIDE INJ 1 MG/4 ML VIAL IV PUSH ×2 (08:32→17:07)
[2023-12-29] MEDS: ASPIRIN 81 MG ENTERIC TABLET PO (08:32)
[2023-12-29] MEDS: methylPREDNISolone SOD SUCC 125 MG VIAL 60 MG IV PUSH (08:32)
[2023-12-29] MEDS: PANTOPRAZOLE 40 MG TABLET PO (08:32)
[2023-12-29] MEDS: FLUCONAZOLE 100 MG TABLET 200 MG FEED TUBE (08:32)
[2023-12-29] MEDS: MINERAL OIL/WHITE PETROLATUM OINTMENT 1 APPLIC EACH EYE (08:33)
[2023-12-29] MEDS: VANCOMYCIN 1,500 MG/NS 500 ML 1,500 MG/500 ML BAG 250 MG IVPB (09:58)
--- NOTE | 2023-12-29 10:09 | PDONCCN ---
HPI - Date of Consult Date/Time: 12/29/23 17:35 <Efra Hoffman - 12/29/23 17:37> 12/29/23 10:09 <Amrita Peña - 12/29/23 10:09> Requesting Physician: Shahzad Trimble MD <Efra Hoffman - 12/29/23 17:37> Shahzad Trimble MD <Amrita Peña - 12/29/23 10:09> Primary Care Provider: Khurram Kumar, <Efra Hoffman - 12/29/23 17:37> Khurram Kumar, <Amrita Peña - 12/29/23 10:09> - Consult Narrative Reason for consult: Liver cancer <Amrita Peña - 12/29/23 10:09> Narrative: Shahzad Smith is a 68 year old male <Efra Hoffman - 12/29/23 17:37> Shahzad Smith is a 68 year old male with a past medical history of HTN, DM, CVA, anemia, neuropathy and liver cancer with mets to the bone who is being seen at the [facility] by Dr. Tai for chemotherapy. Per the patient, he has not received chemotherapy since last summer and is going to have an f/u appt on Dec with oncologist. In previous notes, he is saying he received chemo in Oct and receives it every 3-4 weeks and is due in December. Per my chart review, he has had extensive medical complications that required intubation has had severe sepsis due to enterococcal and pseudomonas at [facility] in June 2023. He has been admitted due to increase weakness and unable to take care of himself at home. CT scan shows MARISELA nodule, osseous lesions in spine, and hepatic metastatic disease. He was intubated due to drowsiness and respiratory distress and is now extubated and now on room air. He is being treated for active UTI growing candidia and has sputum culture growing MRSA and pseudomonas again. He is being treated with ceftazidime and vancomycin and off vasopressors. He reports low hgb in the past and has been take iron supplements. Denies shortness of breath, chest pain, or heart palpitations. Labs today are notable for WBC 11.1, Hgb 9.4, Hct 31, Plt 83,000, Cr 0.80. <MarianaAmrita 12/29/23 11:53> Review of Systems - Review of Systems All systems reviewed & are unremarkable except as noted in HPI and bel <Amrita Peña 12/29/23 12:05> - Neurologic Reports system reviewed and no additional complaints, except as documented <MarianaAmrita 12/29/23 10:09> [facility] Medical History: Medical History (Last Reviewed 12/28/23 @ 13:23 by Jaswant Summers MD) Anxiety COPD (chronic obstructive pulmonary disease) CVA (cerebral vascular accident) Onset Date: ~2018 Residual right-sided weakness Diabetic peripheral neuropathy Hepatocellular carcinoma metastatic to bone Onset Date: ~2019 Obstructive sleep apnea on CPAP Type 2 diabetes mellitus <Efra Hoffman 12/29/23 17:37> Medical History (Last Reviewed 12/28/23 @ 13:23 by Jaswant Summers MD) Anxiety COPD (chronic obstructive pulmonary disease) CVA (cerebral vascular accident) Onset Date: ~2018 Residual right-sided weakness Diabetic peripheral neuropathy Hepatocellular carcinoma metastatic to bone Onset Date: ~2020 Obstructive sleep apnea on CPAP Type 2 diabetes mellitus <MarianaAmrita 12/29/23 10:09> Surgical History: Surgical History (Last Reviewed 12/28/23 @ 13:23 by Jaswant Summers MD) Status post cataract extraction of both eyes with insertion of intraocular lens Onset Date: ~2019 <Efra Hoffman 12/29/23 17:37> Surgical History (Last Reviewed 12/28/23 @ 13:23 by Jaswant Summers MD) Status post cataract extraction of both eyes with insertion of intraocular lens Onset Date: ~2020 <Amrita Peña 12/29/23 10:09> Family History: Family History (Last Reviewed 12/28/23 @ 13:23 by Jaswant Summers MD) Mother Diabetes mellitus Father Cancer <Efra Hoffman 12/29/23 17:37> Family History (Last Reviewed 12/28/23 @ 13:23 by Jaswant Summers MD) Mother Diabetes mellitus Father Cancer <Amrita Peña -
[2023-12-29 10:14] LABS: Glucose Point of Care 88 mg/dl (65-105)
[2023-12-29 11:04] LABS: Iron 32 ug/dL (49-181)
--- NOTE | 2023-12-29 11:09 | WPDINTPN ---
Progress Note: A&P Assessment and Plan (1) Acute respiratory failure: Qualifiers: Respiratory failure complication: unspecified whether with hypoxia or hypercapnia Qualified Code(s): J96.00 - Acute respiratory failure, unspecified whether with hypoxia or hypercapnia Code(s): J96.00 - Acute respiratory failure, unspecified whether with hypoxia or hypercapnia Status: Acute Assessment and Plan: Acute on chronic multifactorial Respiratory failure secondary to COPD exacerbation, encephalopathy, large right pleural effusion, pneumonia, lung nodule Chest CT Impression: 2.2 cm left upper lobe pulmonary nodule, highly suspicious for bronchogenic carcinoma, versus other neoplasm. Extensive hepatic metastatic disease. Suspected subtle osseous metastatic lesions in the spine, as detailed above. Moderate to large right pleural effusion and small right pleural effusion. Patchy consolidation and distortion in the right upper lobe. This could reflect atelectasis or possibly post therapy/postoperative change. Correlate with any relevant clinical history. Probable mild pulmonary edema versus infection in the left upper lobe. Right inguinal hernia containing a loop of small bowel. No bowel obstruction or bowel wall thickening. Possible cystitis. Correlate with urinalysis. 12/25 Patient was emergently intubated and placed on mechanical ventilation. -12/29: . Self extubated in the early hours, patient was placed on BiPAP but now on room air with adequate O2 sats, no shortness of breath. -chest x-ray this morning: Stable 2 cm left upper lobe pulmonary nodule. Mild central congestive change and mild pulmonary edema.Right IJ line -currently on room air Echo shows EF less than 15% with dilated cardiomyopathy Continue bronchodilators -continue Solu-Medrol 12/26 ultrasound-guided thoracentesis done on the right side on 1 L fluid was removed 12/27 Continue diuretics. 12/29: Off dobutamine (2) Pleural effusion, right: Code(s): J90 - Pleural effusion, not elsewhere classified Status: Acute Assessment and Plan: See above (3) Hypotension: Code(s): I95.9 - Hypotension, unspecified Status: Acute Assessment and Plan: Patient became hypotensive post intubation which could be transient secondary to sedation, sepsis and cardiogenic Patient was given 1 L fluid bolus as patient appears to have developed volume overload from the fluids that he received earlier Patient was started levophed infusion to maintain mean arterial pressure which will be continued Off 25% albumin lactic acid level is improving, [id number], - echo showed dilated cardiomyopathy with EF less than 15% 12/27 patient was started on dobutamine infusion. Now OFF dobutamine 12/29 Off Levophed. 12/25; echocardiogram: Summary ? 1. Complete two-dimensional, color flow and Doppler transthoracic echocardiogram is performed. ? 2. Four-chamber dilated cardiomyopathy. EF less than 15% ? 3. Markedly reduced left ventricular systolic function with stigmata of low cardiac output, reduced mitral leaflet excursion and pre closure. ? 4. Mild mitral regurgitation resulting from annular dilation. (4) Cardiomyopathy: Qualifiers: Cardiomyopathy type: dilated Qualified Code(s): I42.0 - Dilated cardiomyopathy Code(s): I42.9 - Cardiomyopathy, unspecified Status: Acute Assessment and Plan: Echo as above. Etiology unknown but four-chamber dilation suggest nonischemic teacher. Records from [place] have been requested on are available yet Continue diuresis with Bumex, -off dobutamine Appreciate cardiology evaluation (5) Sepsis: Qualifiers: Sepsis acute organ dysfunction status: without acute organ dysfunction Sepsis type: sepsis due to unspecified organism Qualified Code(s): A41.9 - Sepsis, unspecified organism Code(s): A41.9 - Sepsis, unspecified organism Status: Acute Assessment and Plan:
[2023-12-29 11:15] LABS: Percent Iron Saturation 13 % (20-50)
--- NOTE | 2023-12-29 11:37 | PCNFU ---
Nutrition Follow-Up Complete: Inadequate Energy Expenditure as related to mechanical ventilation as evidenced by tube feedings rate. Goal: Meet estimated nutritional needs. Patient is progressing towards goal. Pt current nutrition is Clear liquids. Nutrition recommendation: when diet order advances recommend Glucerna shakes. Last recorded weight is 79.3 kg, down from 82.9 kg on admit. Bowel Motility:+BM reported 12/27 Labs Reviewed:Glu 123, BUN 39, Alb 3.1,Hgb 9.4,Hct 31.2 Meds Noted:Vancomycin, Remeron Skin: WNL Additional Notes: Patient self extubated, on room air. Diet order has advanced to a clear liquid diet, tolerated breakfast. Ensure Clear on clear liquid tray providing an additional 240 kcals and 8 gms protein. Recommend Glucerna shakes on trays when diet order advances. Will monitor weight, labs, skin, meds, every 5 days.
[2023-12-29 11:47] LABS: Glucose Point of Care 122 mg/dl (65-105)
--- NOTE | 2023-12-29 11:56 | PM.IMPN ---
Progress Note: A&P Assessment and Plan (1) Acute respiratory failure: Qualifiers: Respiratory failure complication: unspecified whether with hypoxia or hypercapnia Qualified Code(s): J96.00 - Acute respiratory failure, unspecified whether with hypoxia or hypercapnia Code(s): J96.00 - Acute respiratory failure, unspecified whether with hypoxia or hypercapnia Status: Acute Assessment and Plan: Acute on chronic multifactorial Respiratory failure secondary to COPD exacerbation, encephalopathy, large right pleural effusion, pneumonia, lung nodule Chest CT Impression: 2.2 cm left upper lobe pulmonary nodule, highly suspicious for bronchogenic carcinoma, versus other neoplasm. Extensive hepatic metastatic disease. Suspected subtle osseous metastatic lesions in the spine, as detailed above. Moderate to large right pleural effusion and small right pleural effusion. Patchy consolidation and distortion in the right upper lobe. This could reflect atelectasis or possibly post therapy/postoperative change. Correlate with any relevant clinical history. Probable mild pulmonary edema versus infection in the left upper lobe. Right inguinal hernia containing a loop of small bowel. No bowel obstruction or bowel wall thickening. Possible cystitis. Correlate with urinalysis. 12/25 Patient was emergently intubated and placed on mechanical ventilation. -12/29: . Self extubated in the early hours, patient was placed on BiPAP but now on room air with adequate O2 sats, no shortness of breath. -chest x-ray this morning: Stable 2 cm left upper lobe pulmonary nodule. Mild central congestive change and mild pulmonary edema.Right IJ line -currently on room air Echo shows EF less than 15% with dilated cardiomyopathy Continue bronchodilators -continue Solu-Medrol 12/26 ultrasound-guided thoracentesis done on the right side on 1 L fluid was removed 12/27 Continue diuretics. 12/29: Off dobutamine (2) Pleural effusion, right: Code(s): J90 - Pleural effusion, not elsewhere classified Status: Acute Assessment and Plan: S/P IR drainage 1000 mL (3) Hypotension: Code(s): I95.9 - Hypotension, unspecified Status: Acute Assessment and Plan: Patient became hypotensive post intubation which could be transient secondary to sedation, sepsis and cardiogenic Patient was given 1 L fluid bolus as patient appears to have developed volume overload from the fluids that he received earlier Patient was started levophed infusion to maintain mean arterial pressure which will be continued Off 25% albumin lactic acid level is improving, [id number], - echo showed dilated cardiomyopathy with EF less than 15% 12/27 patient was started on dobutamine infusion. Now OFF dobutamine 12/29 Off Levophed. 12/25; echocardiogram: Summary ? 1. Complete two-dimensional, color flow and Doppler transthoracic echocardiogram is performed. ? 2. Four-chamber dilated cardiomyopathy. EF less than 15% ? 3. Markedly reduced left ventricular systolic function with stigmata of low cardiac output, reduced mitral leaflet excursion and pre closure. ? 4. Mild mitral regurgitation resulting from annular dilation. (4) Cardiomyopathy: Qualifiers: Cardiomyopathy type: dilated Qualified Code(s): I42.0 - Dilated cardiomyopathy Code(s): I42.9 - Cardiomyopathy, unspecified Status: Acute Assessment and Plan: Echo as above. Etiology unknown but four-chamber dilation suggest nonischemic teacher. Records from [place] have been requested on are available yet Continue diuresis with Bumex, -off dobutamine Appreciate cardiology evaluation (5) Sepsis: Qualifiers: Sepsis acute organ dysfunction status: without acute organ dysfunction Sepsis type: sepsis due to unspecified organism Qualified Code(s): A41.9 - Sepsis, unspecified organism Code(s): A41.9 - Sepsis, unspecified organism Status: Acute Assessmen
[2023-12-29 12:01] LABS: Folic Acid > 20.0 ng/mL (2.76->20); Vitamin B12 > 1000.0 pg/mL (239-931)
[2023-12-29] MEDS: IRON SUCROSE COMPLEX 500 MG in SODIUM CHLORIDE 0.9% IV 250 ML 79 MG IVPB (13:17)
--- NOTE | 2023-12-29 13:18 | PM.PNCARD ---
Progress Note: A&P Assessment and Plan (1) Cardiomyopathy: Qualifiers: Cardiomyopathy type: dilated Qualified Code(s): I42.0 - Dilated cardiomyopathy Code(s): I42.9 - Cardiomyopathy, unspecified Status: Acute Assessment and Plan: Severe LV systolic dysfunction EF less than 15% with four-chamber enlargement consistent with dilated cardiomyopathy.? Duration etiology remains unclear at this time.? Patient was receiving chemotherapy in which his regimen remains unknown at this time.? Will need to assess for cardiac toxicity with regards to his regimen and or further evidence of history of cardiomyopathy and or CHF. Continue IV diuresis. He is off of Dobutamine now. Continue accurate input and output, daily weight.? When he is hemodynamically stable anticipate resuming beta-ifeoma therapy as well as Entresto if able to tolerate.? Ideally we consider initiation of Jardiance 10 mg daily, spironolactone 25 mg daily as well.? Continue to monitor closely.? Patient is critically ill with multiple comorbidities.? Prognosis poor.? Will review prior cardiovascular records when available as requested. Patient is critically ill.? EF less than 15%.? Etiology remains unclear although seems to be less likely multivessel CAD given clinical circumstances and more likely nonischemic if this cannot be confirmed at this time.? Patient is not a candidate for invasive angiography nor noninvasive ischemic stress testing at this time.? Patient high risk for life-threatening or potential fatal ventricular arrhythmias given severe LV dysfunction.? Given poor prognosis in light of metastatic hepatocellular carcinoma candidacy for ICD implantation highly questionable even if patient is able make a full recovery.? (2) Shock: Code(s): R57.9 - Shock, unspecified Status: Acute Assessment and Plan: Resolved. Off of Levophed and Dobutamine now. (3) Acute respiratory failure: Qualifiers: Respiratory failure complication: unspecified whether with hypoxia or hypercapnia Qualified Code(s): J96.00 - Acute respiratory failure, unspecified whether with hypoxia or hypercapnia Code(s): J96.00 - Acute respiratory failure, unspecified whether with hypoxia or hypercapnia Status: Acute Assessment and Plan: Acute on chronic multifactorial contribution with history of O2 dependent COPD, underlying pneumonia, severe LV dysfunction CHF.? Patient also has evidence of probable metastatic cancer to the lung as well with 2.2 cm left upper lobe pulmonary nodule highly suspicious for bronchogenic carcinoma.? There was evidence for extensive hepatic metastatic disease as well.? He has moderate to large right pleural effusion and small left pleural effusion. (4) Sepsis: Qualifiers: Sepsis acute organ dysfunction status: without acute organ dysfunction Sepsis type: sepsis due to unspecified organism Qualified Code(s): A41.9 - Sepsis, unspecified organism Code(s): A41.9 - Sepsis, unspecified organism Status: Acute Assessment and Plan: Management as per ICU team. (5) COPD (chronic obstructive pulmonary disease): Qualifiers: COPD type: unspecified COPD Qualified Code(s): J44.9 - Chronic obstructive pulmonary disease, unspecified Code(s): J44.9 - Chronic obstructive pulmonary disease, unspecified Status: Acute Assessment and Plan: History of O2 dependent COPD.? Management as per primary team. (6) Type 2 diabetes mellitus: Code(s): E11.9 - Type 2 diabetes mellitus without complications Status: Acute Assessment and Plan: Continue Lantus insulin and monitor glucose per ICU protocol.? Defer to primary service. (7) Hepatocellular carcinoma metastatic to bone: Onset Date: ~2019 Code(s): C79.51 - Secondary malignant neoplasm of bone; C22.0 - Liver cell carcinoma Status: Acute Assessment and Plan: Oncology has been consulted.
--- NOTE | 2023-12-29 15:17 | PCSTNOTE ---
Please refer to the Bedside Swallow Evaluation in the EMR. Please note, silent aspiration cannot be ruled out at bedside.
[2023-12-29 17:13] LABS: Glucose Point of Care 107 mg/dl (65-105)
[2023-12-29] MEDS: INSULIN GLARGINE (*BKC) 100 UNITS/ML 15 UNITS SUB-Q (20:16)
[2023-12-29 20:26] LABS: Glucose Point of Care 114 mg/dl (65-105)
[2023-12-29 20:49] LABS: Glucose Pleural Fluid 161 mg/dL; LDH Pleural Fluid 143 U/L; Total Protein Pleural Fluid <3.0 g/dL
[2023-12-30] VITALS (15 sets, daily range): BP systolic 104–118; BP diastolic 72–91; PULSE 84–108; RESP 14–20; TEMP 36.1–36.6; O2SAT 93–97
[2023-12-30 01:42] LABS: Glucose Point of Care 114 mg/dl (65-105)
[2023-12-30] MEDS: IPRATROPIUM 0.5 MG/ALBUTEROL SULFATE 2.5 MG AMPUL.NEB 3 ML INHALATION ×4 (02:50→21:12)
[2023-12-30] MEDS: cefTAZidime 2 GM/NS 50 ML 2 GM/50 ML BAG IVPB ×3 (03:53→20:08)
[2023-12-30 04:54] LABS: Hemoglobin 9.4 g/dL (14.0-18.0); Immature Platelet Fraction Pct 8.4 % (0.9-11.2); Mean Corpuscular HGB Conc 29.4 g/dl (32-36); Mean Corpuscular Hemoglobin 26.1 pg (26-34); Mean Corpuscular Volume 88.9 fl (80-100); Platelet Count Result 70 k/mm3 (150-375); Red Cell Distribution Width 18.6 % (11.5-14.5); White Blood Count 8.4 K/mm3 (4.5-10.0)
--- NOTE | 2023-12-30 05:00 | PC.NURSE ---
Patient transferred to room 257 in stable condition. All belongings sent with patient, transported by bed. Latosha TURK given report.
[2023-12-30 05:07] LABS: Alanine Aminotransferase 50 U/L (6-50); Albumin Level 3.1 g/dL (3.5-5.1); Alkaline Phosphatase 121 U/L (38-126); Anion Gap 1 mmol/L (8-16); Aspartate Amino Transferase 30 U/L (17-59); Bilirubin,Total 0.8 mg/dL (0.2-1.3); Blood Urea Nitrogen 33 mg/dL (9-20); Calcium 8.5 mg/dL (8.4-10.2); Carbon Dioxide 39 mmol/L (22-30); Chloride 98 mmol/L (98-107); Estimated CRCL calculation 65 ml/min; Estimated Glomerular Filt Rate > 60; Glucose 112 mg/dL (65-110); Magnesium 1.7 mg/dL (1.6-2.3); Potassium 3.8 mmol/L (3.4-5.0); Sodium 138 mmol/L (137-145)
[2023-12-30] MEDS: CENTRAL LINE FLUSH 10 ML IV PUSH ×3 (05:08→20:22)
[2023-12-30 05:11] LABS: Glucose Point of Care 108 mg/dl (65-105)
[2023-12-30 08:11] LABS: Glucose Point of Care 97 mg/dl (65-105)
[2023-12-30] MEDS: methylPREDNISolone SOD SUCC 125 MG VIAL 60 MG IV PUSH (09:59)
[2023-12-30] MEDS: BUMETANIDE INJ 1 MG/4 ML VIAL IV PUSH (09:59)
--- NOTE | 2023-12-30 10:12 | PCSTNOTE ---
Please refer to the Modified Barium Swallow Evaluation in the EMR.
[2023-12-30 12:08] LABS: Glucose Point of Care 109 mg/dl (65-105)
--- NOTE | 2023-12-30 14:34 | PM.IMPN ---
Progress Note: A&P Assessment and Plan (1) Acute respiratory failure: Qualifiers: Respiratory failure complication: unspecified whether with hypoxia or hypercapnia Qualified Code(s): J96.00 - Acute respiratory failure, unspecified whether with hypoxia or hypercapnia Code(s): J96.00 - Acute respiratory failure, unspecified whether with hypoxia or hypercapnia Status: Acute Assessment and Plan: Acute on chronic multifactorial Respiratory failure secondary to COPD exacerbation, encephalopathy, large right pleural effusion, pneumonia, lung nodule Chest CT Impression: 2.2 cm left upper lobe pulmonary nodule, highly suspicious for bronchogenic carcinoma, versus other neoplasm. Extensive hepatic metastatic disease. Suspected subtle osseous metastatic lesions in the spine, as detailed above. Moderate to large right pleural effusion and small right pleural effusion. Patchy consolidation and distortion in the right upper lobe. This could reflect atelectasis or possibly post therapy/postoperative change. Correlate with any relevant clinical history. Probable mild pulmonary edema versus infection in the left upper lobe. Right inguinal hernia containing a loop of small bowel. No bowel obstruction or bowel wall thickening. Possible cystitis. Correlate with urinalysis. 12/25 Patient was emergently intubated and placed on mechanical ventilation. -12/29: . Self extubated in the early hours, patient was placed on BiPAP but now on room air with adequate O2 sats, no shortness of breath. -chest x-ray this morning: Stable 2 cm left upper lobe pulmonary nodule. Mild central congestive change and mild pulmonary edema.Right IJ line -currently on room air Echo shows EF less than 15% with dilated cardiomyopathy Continue bronchodilators -continue Solu-Medrol 12/26 ultrasound-guided thoracentesis done on the right side on 1 L fluid was removed 12/27 Continue diuretics. 12/29: Off dobutamine 12/30: Pt on 1L NC after self extubation yesterday and maintaining sats. Respiratory failure likely due to PNA w/sputum positive for MRSA and Pseudomonas. Continue Ceftazidime and Doxy. Continue solumedrol daily. (2) Pleural effusion, right: Code(s): J90 - Pleural effusion, not elsewhere classified Status: Acute Assessment and Plan: S/P IR drainage 1000 mL 12/30: Site free of any s/s of infection or leakage. No evidence of PTX. (3) Hypotension: Code(s): I95.9 - Hypotension, unspecified Status: Resolved Assessment and Plan: Patient became hypotensive post intubation which could be transient secondary to sedation, sepsis and cardiogenic Patient was given 1 L fluid bolus as patient appears to have developed volume overload from the fluids that he received earlier Patient was started levophed infusion to maintain mean arterial pressure which will be continued Off 25% albumin lactic acid level is improving, [id number], - echo showed dilated cardiomyopathy with EF less than 15% 12/27 patient was started on dobutamine infusion. Now OFF dobutamine 12/29 Off Levophed. 12/25; echocardiogram: Summary ? 1. Complete two-dimensional, color flow and Doppler transthoracic echocardiogram is performed. ? 2. Four-chamber dilated cardiomyopathy. EF less than 15% ? 3. Markedly reduced left ventricular systolic function with stigmata of low cardiac output, reduced mitral leaflet excursion and pre closure. ? 4. Mild mitral regurgitation resulting from annular dilation. 12/30: Resolved and maintaining without pressors. (4) Cardiomyopathy: Qualifiers: Cardiomyopathy type: dilated Qualified Code(s): I42.0 - Dilated cardiomyopathy Code(s): I42.9 - Cardiomyopathy, unspecified Status: Acute Assessment and Plan: Echo as above. Etiology unknown but four-chamber dilation suggest nonischemic teacher. Records from [facility] have been requested on are available yet Continue diuresis with Bumex, -off dobu
--- NOTE | 2023-12-30 14:38 | PM.PNCARD ---
Progress Note: A&P Assessment and Plan (1) Cardiomyopathy: Qualifiers: Cardiomyopathy type: dilated Qualified Code(s): I42.0 - Dilated cardiomyopathy Code(s): I42.9 - Cardiomyopathy, unspecified Status: Acute Assessment and Plan: Severe LV systolic dysfunction EF less than 15% with four-chamber enlargement consistent with dilated cardiomyopathy.? Prior documentation of EF June 2023 was 30-35% per mention in the records. Patient was receiving chemotherapy but none since summer in which his regimen remains unknown at this time.? Will need to assess for cardiac toxicity with regards to his regimen and or further evidence of history of cardiomyopathy and or CHF. Patient is not a candidate for any chemotherapy which may pose risk for cardiac toxicity. Patient is critically ill.? Etiology remains unclear although seems to be less likely multivessel CAD given clinical circumstances and more likely nonischemic if this cannot be confirmed at this time.? Patient is not a candidate for invasive angiography nor noninvasive ischemic stress testing at this time.? Patient high risk for life-threatening or potential fatal ventricular arrhythmias given severe LV dysfunction.? Given poor prognosis in light of metastatic hepatocellular carcinoma candidacy for ICD implantation highly questionable even if patient is able make a full recovery.? -resume beta-ifeoma therapy, however, change to Toprol XL 25 mg daily. Change Bumex to 1 mg p.o. daily. Add Entresto 12/13 mg twice daily. As tolerated, consider addition of with SGLT 2 inhibitor therapy as tolerated. (2) CHF (congestive heart failure): Qualifiers: Heart failure type: systolic Heart failure chronicity: acute Qualified Code(s): I50.21 - Acute systolic (congestive) heart failure Code(s): I50.9 - Heart failure, unspecified Status: Acute Assessment and Plan: Appearing euvolemic. Reduce Bumex to 1 mg p.o. daily. As above, monitor volume status closely, input and output, daily weight. Less than 2 g daily sodium intake. Optimize guideline directed medical therapy as tolerated. Patient is not a candidate for invasive angiography at this time. (3) Acute respiratory failure: Qualifiers: Respiratory failure complication: unspecified whether with hypoxia or hypercapnia Qualified Code(s): J96.00 - Acute respiratory failure, unspecified whether with hypoxia or hypercapnia Code(s): J96.00 - Acute respiratory failure, unspecified whether with hypoxia or hypercapnia Status: Acute Assessment and Plan: Acute on chronic multifactorial contribution with history of O2 dependent COPD, underlying pneumonia, severe LV dysfunction CHF.? Patient also has evidence of probable metastatic cancer to the lung as well with 2.2 cm left upper lobe pulmonary nodule highly suspicious for bronchogenic carcinoma.? There was evidence for extensive hepatic metastatic disease as well.? He has moderate to large right pleural effusion and small left pleural effusion. (4) Hepatocellular carcinoma metastatic to bone: Onset Date: ~2019 Code(s): C79.51 - Secondary malignant neoplasm of bone; C22.0 - Liver cell carcinoma Status: Acute Assessment and Plan: Oncology has been consulted. Patient is very poor prognosis due to multiple distant metastasis. (5) Sepsis: Qualifiers: Sepsis acute organ dysfunction status: without acute organ dysfunction Sepsis type: sepsis due to unspecified organism Qualified Code(s): A41.9 - Sepsis, unspecified organism Code(s): A41.9 - Sepsis, unspecified organism Status: Acute Assessment and Plan: Resolved. management as per ICU team. (6) Shock: Code(s): R57.9 - Shock, unspecified Status: Acute Assessment and Plan: Resolved. (7) COPD (chronic obstructive pulmonary disease): Qualifiers: COPD type: unspecified COPD Qualifie
--- NOTE | 2023-12-30 17:15 | WPDONCPN ---
Progress Note: A/P (1) Hepatocellular carcinoma metastatic to bone Onset Date: ~2019 Code(s): C79.51 - Secondary malignant neoplasm of bone; C22.0 - Liver cell carcinoma Status: Chronic (2) Anemia Code(s): D64.9 - Anemia, unspecified Status: Acute (3) Thrombocytopenia Code(s): D69.6 - Thrombocytopenia, unspecified Status: Acute - Additional Plan Metastatic hepatocellular carcinoma. CT scan showed progressive disease with bone and lung metastasis. Patient last treatment with Keytruda plus chemotherapy was in summer of last year. He had PET scan done last month and will follow-up with the oncologist at [facility] for further management. Anemia and thrombocytopenia. Multifactorial secondary to sepsis and nutritional deficiencies. Labs showed elevated vitamin B12 and low iron level. Will start iron infusion. Respiratory failure secondary to pneumonia and pleural effusion status post thoracentesis. He seems to be comfortable today. - Time Spent With Patient Total time spent is greater than 50% in coordination of care (as documented) at patient's floor/unit and/or counseling patient: 25 - 35 minutes Subjective Interval history: Metastatic hepatocellular carcinoma Anemia Review of Systems - Review of Systems Patient seems to be quite comfortable. Denies any nausea vomiting. Denies any abdominal pain. No diarrhea. No fevers and chills. No other new complaints. - Neurologic Reports system reviewed and no additional complaints, except as documented Exam Vital signs: Temp Pulse Resp BP Pulse Ox O2 Del Method O2 Flow Rate 36.5 C 108 H 20 110/78 94 Nasal Cannula 1 12/30/23 12:00 12/30/23 14:05 12/30/23 14:05 12/30/23 12:00 12/30/23 12:00 12/30/23 11:38 12/30/23 11:38 FiO2 28 12/30/23 08:38 Narrative: Lungs are clear to auscultation bilaterally Cardiovascular regular rate rhythm no murmurs Abdomen slightly distended bowel sounds are positive Extremities no edema PN: Objective Data - Labs CBC & Chem 7: 12/30/23 04:43 12/30/23 04:43 Labs: Laboratory Results - last 24 hr 12/26/23 12/29/23 12/30/23 14:15 20:10 01:40 WBC RBC Hgb Hct MCV MCH MCHC RDW Plt Count MPV % Immature Plt Fraction Sodium Potassium Chloride Carbon Dioxide Anion Gap BUN Creatinine Estim Creat Clear Calc Estimated GFR Glucose POC Capillary Glucose 114 H 114 H Calcium Magnesium Total Bilirubin AST ALT Alkaline Phosphatase Total Protein Albumin Pleural Total Protein <3.0 Pleural LDH 143 Pleural Glucose 161 12/30/23 12/30/23 12/30/23 04:43 05:06 08:00 WBC 8.4 RBC 3.60 L Hgb 9.4 L Hct 32.0 L MCV 88.9 MCH 26.1 MCHC 29.4 L RDW 18.6 H Plt Count 70 L MPV 11.0 H % Immature Plt Fraction 8.4 Sodium 138 Potassium 3.8 Chloride 98 Carbon Dioxide 39 H Anion Gap 1 L BUN 33 H Creatinine 0.90 Estim Creat Clear Calc 65 Estimated GFR > 60 Glucose 112 H POC Capillary Glucose 108 H 97 Calcium 8.5 Magnesium 1.7 Total Bilirubin 0.8 AST 30 ALT 50 Alkaline Phosphatase 121 Total Protein 6.0 L Albumin 3.1 L Pleural Total Protein Pleural LDH Pleural Glucose 12/30/23 12:05 WBC RBC Hgb Hct MCV MCH MCHC RDW Plt Count MPV % Immature Plt Fraction Sodium Potassium Chloride Carbon Dioxide Anion Gap BUN Creatinine Estim Creat Clear Calc Estimated GFR Glucose POC Capillary Glucose 109 H Calcium Magnesium Total Bilirubin AST ALT Alkaline Phosphatase Total Protein Albumin Pleural Total Protein Pleural LDH Pleural Glucose
[2023-12-30 17:32] LABS: Glucose Point of Care 279 mg/dl (65-105)
[2023-12-30] MEDS: IRON SUCROSE COMPLEX 500 MG in SODIUM CHLORIDE 0.9% IV 250 ML 79 MG IVPB (17:46)
[2023-12-30] MEDS: metFORMIN HCL 500 MG TABLET 1000 MG PO (17:47)
[2023-12-30] MEDS: HYDROcodone/acetaminophen (*CRX) 5-325 MG TABLET 1 TAB PO ×2 (17:48→22:08)
[2023-12-30] MEDS: INSULIN ASPART (*BKC) 100 UNITS/ML SUB-Q ×2 (17:48→20:21)
[2023-12-30] MEDS: SACUBITRIL/VALSARTAN 12-13 MG TABLET 1 TAB PO (20:12)
[2023-12-30] MEDS: DOXYCYCLINE HYCLATE 100 MG TABLET PO (20:12)
[2023-12-30] MEDS: INSULIN GLARGINE (*BKC) 100 UNITS/ML 15 UNITS SUB-Q (20:19)
[2023-12-30 21:28] LABS: Glucose Point of Care 282 mg/dl (65-105)
[2023-12-31] VITALS (17 sets, daily range): BP systolic 98–116; BP diastolic 68–81; PULSE 68–101; RESP 16–20; TEMP 36.1–36.9; O2SAT 90–100
[2023-12-31 00:46] LABS: Glucose Point of Care 167 mg/dl (65-105)
[2023-12-31] MEDS: IPRATROPIUM 0.5 MG/ALBUTEROL SULFATE 2.5 MG AMPUL.NEB 3 ML INHALATION ×4 (03:09→20:04)
[2023-12-31] MEDS: cefTAZidime 2 GM/NS 50 ML 2 GM/50 ML BAG IVPB ×3 (04:04→21:54)
[2023-12-31] MEDS: HYDROcodone/acetaminophen (*CRX) 5-325 MG TABLET 1 TAB PO ×3 (04:08→18:53)
[2023-12-31] MEDS: CENTRAL LINE FLUSH 10 ML IV PUSH ×3 (04:09→21:54)
[2023-12-31 04:14] LABS: Hematocrit 32.5 % (42.0-52.0); Hemoglobin 9.8 g/dL (14.0-18.0); Immature Granulocyte Absolute 0.03 K/mm3 (0.00-0.031); Immature Granulocyte Percent A 0.4 % (0-0.5); Lymphocytes Absolute Auto 0.53 K/mm3 (0.9-3.2); Lymphocytes Percent Auto 6.6 % (18.3-44.2); Mean Corpuscular HGB Conc 30.2 g/dl (32-36); Mean Corpuscular Hemoglobin 26.2 pg (26-34); Mean Corpuscular Volume 86.9 fl (80-100); Mean Platelet Volume 10.9 fl (7.4-10.4); Monocytes Absolute Auto 0.5 K/mm3 (0.1-0.6); Monocytes Percent Auto 5.9 % (2.6-8.5); Neutrophils Percent Auto 87.1 % (45.5-73.1); Platelet Count Result 71 k/mm3 (150-375); Red Blood Count 3.74 M/mm3 (4.6-6.20); Red Cell Distribution Width 18.6 % (11.5-14.5)
[2023-12-31 04:24] LABS: Alanine Aminotransferase 46 U/L (6-50); Albumin Level 3.3 g/dL (3.5-5.1); Alkaline Phosphatase 143 U/L (38-126); Anion Gap 4 mmol/L (8-16); Aspartate Amino Transferase 32 U/L (17-59); Blood Urea Nitrogen 27 mg/dL (9-20); Calcium 8.5 mg/dL (8.4-10.2); Carbon Dioxide 37 mmol/L (22-30); Chloride 96 mmol/L (98-107); Estimated CRCL calculation 73 ml/min; Estimated Glomerular Filt Rate > 60; Glucose 136 mg/dL (65-110); Potassium 3.5 mmol/L (3.4-5.0); Sodium 137 mmol/L (137-145)
[2023-12-31 05:18] LABS: Anisocytosis 1+ (NORMAL); Hypochromasia 1+ (NORMAL); Ovalocytes 1+ (NORMAL); Platelet Estimate Decreased (Adequate); Schistocytes Rare (NORMAL)
[2023-12-31] MEDS: metFORMIN HCL 500 MG TABLET 1000 MG PO ×2 (08:21→17:28)
[2023-12-31] MEDS: DOXYCYCLINE HYCLATE 100 MG TABLET PO ×2 (08:21→21:53)
[2023-12-31] MEDS: FOLIC ACID 1 MG TABLET PO (08:21)
[2023-12-31] MEDS: ASPIRIN 81 MG ENTERIC TABLET PO (08:21)
[2023-12-31] MEDS: METOPROLOL SUCCINATE EXT REL 25 MG TABCR PO (08:22)
[2023-12-31] MEDS: BUMETANIDE 1 MG TABLET PO (08:23)
[2023-12-31 08:32] LABS: Glucose Point of Care 104 mg/dl (65-105)
[2023-12-31] MEDS: FLUCONAZOLE 100 MG TABLET 200 MG FEED TUBE (08:37)
[2023-12-31] MEDS: PANTOPRAZOLE 40 MG TABLET PO (08:38)
[2023-12-31] MEDS: INSULIN GLARGINE (*BKC) 100 UNITS/ML 15 UNITS SUB-Q (08:40)
--- NOTE | 2023-12-31 10:10 | PM.IMPN ---
Progress Note: A&P Assessment and Plan (1) Acute respiratory failure: Qualifiers: Respiratory failure complication: unspecified whether with hypoxia or hypercapnia Qualified Code(s): J96.00 - Acute respiratory failure, unspecified whether with hypoxia or hypercapnia Code(s): J96.00 - Acute respiratory failure, unspecified whether with hypoxia or hypercapnia Status: Acute Assessment and Plan: Acute on chronic multifactorial Respiratory failure secondary to COPD exacerbation, encephalopathy, large right pleural effusion, pneumonia, lung nodule Chest CT Impression: 2.2 cm left upper lobe pulmonary nodule, highly suspicious for bronchogenic carcinoma, versus other neoplasm. Extensive hepatic metastatic disease. Suspected subtle osseous metastatic lesions in the spine, as detailed above. Moderate to large right pleural effusion and small right pleural effusion. Patchy consolidation and distortion in the right upper lobe. This could reflect atelectasis or possibly post therapy/postoperative change. Correlate with any relevant clinical history. Probable mild pulmonary edema versus infection in the left upper lobe. Right inguinal hernia containing a loop of small bowel. No bowel obstruction or bowel wall thickening. Possible cystitis. Correlate with urinalysis. 12/25 Patient was emergently intubated and placed on mechanical ventilation. -12/29: . Self extubated in the early hours, patient was placed on BiPAP but now on room air with adequate O2 sats, no shortness of breath. -chest x-ray this morning: Stable 2 cm left upper lobe pulmonary nodule. Mild central congestive change and mild pulmonary edema.Right IJ line -currently on room air Echo shows EF less than 15% with dilated cardiomyopathy Continue bronchodilators -continue Solu-Medrol 12/26 ultrasound-guided thoracentesis done on the right side on 1 L fluid was removed 12/27 Continue diuretics. 12/29: Off dobutamine 12/30: Pt on 1L NC after self extubation yesterday and maintaining sats. Respiratory failure likely due to PNA w/sputum positive for MRSA and Pseudomonas. Continue Ceftazidime and Doxy. Continue solumedrol daily. 12/31: Pt stable on continued medications of Ceftazidime and Doxy. On 1L NC currently. No s/s of decompensation. Continue duoneb. Will do repeat CXR in AM. (2) Pleural effusion, right: Code(s): J90 - Pleural effusion, not elsewhere classified Status: Acute Assessment and Plan: S/P IR drainage 1000 mL 12/30: Site free of any s/s of infection or leakage. No evidence of PTX. 12/31: Decreased lung sounds, but stable oxygenation. Will check CXR in AM. (3) Hypotension: Code(s): I95.9 - Hypotension, unspecified Status: Resolved Assessment and Plan: Patient became hypotensive post intubation which could be transient secondary to sedation, sepsis and cardiogenic Patient was given 1 L fluid bolus as patient appears to have developed volume overload from the fluids that he received earlier Patient was started levophed infusion to maintain mean arterial pressure which will be continued Off 25% albumin lactic acid level is improving, [id number], - echo showed dilated cardiomyopathy with EF less than 15% 12/27 patient was started on dobutamine infusion. Now OFF dobutamine 12/29 Off Levophed. 12/25; echocardiogram: Summary ? 1. Complete two-dimensional, color flow and Doppler transthoracic echocardiogram is performed. ? 2. Four-chamber dilated cardiomyopathy. EF less than 15% ? 3. Markedly reduced left ventricular systolic function with stigmata of low cardiac output, reduced mitral leaflet excursion and pre closure. ? 4. Mild mitral regurgitation resulting from annular dilation. 12/30: Resolved and maintaining without pressors. 12/31: Stable BP after the addition of Entresto by Cardiology. (4) Cardiomyopathy: Qualifiers: Cardiomyopathy type: dilated Qualified Code(s): I42.0 - Dilated cardiomyop
[2023-12-31] MEDS: SACUBITRIL/VALSARTAN 12-13 MG TABLET 1 TAB PO ×2 (10:12→21:53)
--- NOTE | 2023-12-31 10:48 | PCNFU ---
Nutrition Follow-Up Complete: Inadequate Energy Expenditure as related to failure to thrive as evidenced by poor po intake reported. Goal: Meet estimated nutritional needs. patient is progressing towards goal. We will continue current goal. Pt current nutrition is Regular. Nutrition recommendation:Glucerna shakes BID Last recorded weight is 76.6 kg, down from 82.9 kg on admit. Unsure of bed weight scale accuracy. Weight has been running around 80kg. Bowel Motility: +BM reported 12/30 Labs Reviewed:Glu 136,BUN 27, Alb 3.3, Hct 32.5,Hgb 9.8 Meds Noted:Remeron, Vancomycin, Lantus, Diflucan,Glucophage,Protonix Skin: WNL Additional Notes:Patient had MBS 12/30, failed. Patient and hospitalist discussions regarding plan of care. Patient would like to continue eating. Diet order advanced to a regular diet. Intake has been 40-50% of meals. Diet supplements of Glucerna shakes added BID for additional kcal and protein needs. Agree with diet orders. Will monitor weight, labs, skin, meds, tube feedings every 5 days.
--- NOTE | 2023-12-31 10:59 | PM.PNCARD ---
Progress Note: A&P Assessment and Plan (1) Cardiomyopathy: Qualifiers: Cardiomyopathy type: dilated Qualified Code(s): I42.0 - Dilated cardiomyopathy Code(s): I42.9 - Cardiomyopathy, unspecified Status: Acute Assessment and Plan: Severe LV systolic dysfunction EF less than 15% with four-chamber enlargement consistent with dilated cardiomyopathy.? Prior documentation of EF June 2023 was 30-35% per mention in the records. Patient was receiving chemotherapy but none since summer in which his regimen remains unknown at this time.? Will need to assess for cardiac toxicity with regards to his regimen and or further evidence of history of cardiomyopathy and or CHF. Patient is not a candidate for any chemotherapy which may pose risk for cardiac toxicity. Etiology remains unclear although seems to be less likely multivessel CAD given clinical circumstances and more likely nonischemic if this cannot be confirmed at this time.? Patient is not a candidate for invasive angiography nor noninvasive ischemic stress testing at this time.? Patient high risk for life-threatening or potential fatal ventricular arrhythmias given severe LV dysfunction.? Given poor prognosis in light of metastatic hepatocellular carcinoma candidacy for ICD implantation highly questionable even if patient is able make a full recovery.? -continue Toprol XL 25 mg daily, Bumex 1 mg p.o. daily. Entresto 12/13 mg twice daily started last night and already feeling better. As tolerated, consider addition of with SGLT 2 inhibitor therapy as tolerated. Discussed plan of care. Patient verbalized understanding. Palliative care discussions appropriate. He understands he is not a candidate for invasive workup remains at high risk for complications. Unfortunately, prognosis associated with metastatic hepatocellular carcinoma likely the primary determined with regards candidacy for additional workup and management as an outpatient. (2) CHF (congestive heart failure): Qualifiers: Heart failure type: systolic Heart failure chronicity: acute Qualified Code(s): I50.21 - Acute systolic (congestive) heart failure Code(s): I50.9 - Heart failure, unspecified Status: Acute Assessment and Plan: Patient is currently euvolemic. continue Bumex 1 mg p.o. daily. As above, monitor volume status closely, input and output, daily weight. Less than 2 g daily sodium intake. Optimize guideline directed medical therapy as tolerated. Patient is not a candidate for invasive angiography at this time. (3) Acute respiratory failure: Qualifiers: Respiratory failure complication: unspecified whether with hypoxia or hypercapnia Qualified Code(s): J96.00 - Acute respiratory failure, unspecified whether with hypoxia or hypercapnia Code(s): J96.00 - Acute respiratory failure, unspecified whether with hypoxia or hypercapnia Status: Acute Assessment and Plan: Acute on chronic multifactorial contribution with history of O2 dependent COPD, underlying pneumonia, severe LV dysfunction CHF.? Patient also has evidence of probable metastatic cancer to the lung as well with 2.2 cm left upper lobe pulmonary nodule highly suspicious for bronchogenic carcinoma.? There was evidence for extensive hepatic metastatic disease as well.? He has moderate to large right pleural effusion and small left pleural effusion. Clinically he is improving. He remains on ceftazidime. 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 Defer to Oncology. Appreciate their involvement and recommendations. (5) COPD (chronic obstructive pulmonary disease): Qualifiers: COPD type: unspecified COPD Qualified Code(s): J44.9
[2023-12-31 12:04] LABS: Glucose Point of Care 165 mg/dl (65-105)
[2023-12-31 12:41] LABS: Methylmalonic Acid 296 nmol/L (87-318)
[2023-12-31 17:15] LABS: Glucose Point of Care 98 mg/dl (65-105)
[2023-12-31 20:28] LABS: Glucose Point of Care 90 mg/dl (65-105)
[2024-01-01] VITALS (14 sets, daily range): BP systolic 101–104; BP diastolic 60–79; PULSE 82–99; RESP 16–20; TEMP 36.4–36.5; O2SAT 94–99
[2024-01-01] MEDS: IPRATROPIUM 0.5 MG/ALBUTEROL SULFATE 2.5 MG AMPUL.NEB 3 ML INHALATION ×4 (01:49→20:26)
[2024-01-01] MEDS: HYDROcodone/acetaminophen (*CRX) 5-325 MG TABLET 1 TAB PO ×4 (04:58→23:25)
[2024-01-01] MEDS: CENTRAL LINE FLUSH 10 ML IV PUSH ×3 (06:05→21:55)
[2024-01-01] MEDS: cefTAZidime 2 GM/NS 50 ML 2 GM/50 ML BAG IVPB ×3 (06:05→21:55)
--- NOTE | 2024-01-01 08:52 | PM.PNCARD ---
Progress Note: A&P Assessment and Plan (1) CHF (congestive heart failure): Qualifiers: Heart failure type: systolic Heart failure chronicity: acute Qualified Code(s): I50.21 - Acute systolic (congestive) heart failure Code(s): I50.9 - Heart failure, unspecified Status: Acute (2) Cardiomyopathy: Qualifiers: Cardiomyopathy type: dilated Qualified Code(s): I42.0 - Dilated cardiomyopathy Code(s): I42.9 - Cardiomyopathy, unspecified Status: Acute Plan 68-year-old man with severe cardiomyopathy diagnosed by ECHO at when he came in for this hospital stay. The likely diagnosis is this is a myopathy related to chemotherapy however that is not firmly established. Regardless he is tolerating initial guideline directed medical therapy and is feeling better. His blood pressure is acceptable but soft so I will not advance his Entresto dosage at this time. He may or may not require home oxygen at the time of discharge. Hopefully that can be weaned off as we go along. We are not planning on conducting any of invasive cardiology evaluation here since his prognosis is very poor given his history of metastatic hepatocellular cancer Ron Saldana MD [facility] Subjective Date/time seen: Date of service: 01/01/24 08:52 Interval history: Reason for visit: Heart failure with reduced ejection fraction HPI: Patient is a 68-year-old male with a past medical history significant for metastatic hepatocellular carcinoma to the bone, pulmonary nodule, COPD and home oxygen, hypertension, type 2 diabetes mellitus, SHILPI on CPAP who was brought to emergency department via EMS due to weakness and failure to thrive.? History is obtained electronic medical record as patient is unable to provide details as he is intubated on mechanical ventilatory support.? Patient was initially admitted 12/24/2023 for transfer to the ICU the following day after it was reported he was feeling anxious nauseous and short of breath.? He is found to be hypoxic rapid responses called result started, confused and in respiratory distress.? Due to worsening oxygen saturation, nausea noninvasive positive pressure ventilation was not able to be safely utilized therefore he was intubated.? It was reported post intubation he was significant hypotensive, given IV fluids and started on norepinephrine.? Patient then developed volume overload for which she was started on IV diuretics with Bumex 1 mg b.i.d. and norepinephrine which was discontinued yesterday.? He is currently being treated with dobutamine at 5 microgram/kilogram per minute.? Patient diuresing well.? Imaging has revealed the presence of a 2.2 cm nodule in the left upper lobe.? Patient has maintained sinus rhythm since admission.? He is also been treating for pneumonia with vancomycin and ceftazidime.? Was also started on methylprednisolone 60 mg IV daily.? 2D echocardiogram 12/25/2023 four-chamber dilated cardiomyopathy severe LV dysfunction EF less than 15% [id number] MR, mild TR.? Reportedly, he was receiving chemotherapy as an outpatient although precise regimen is not known. Date of service 12/29: He is now off Dobutamine and Levophed. Diuresing well. He feels okay, but is scared to fall asleep. Date of service 12/30/2023: Patient states he is feeling better. Complains of vertigo symptoms which he has had for quite some time well prior to admission. Breathing better. States he is fatigued but denies chest pain or shortness of breath lying in bed. Remains in sinus rhythm and/or sinus tachycardia on telemetry. No new issues overnight. Date of service 12/31/2023: Patient feels much better today than he did yesterday. Denies shortness of breath or dizziness. Denies chest pain or palpitation. No new issues overnight. No edema. Eating better. States he feels weak and cannot live independently. Planning on going to assisted living post discharge. Nursing staff mentions seth
[2024-01-01 09:10] LABS: Glucose Point of Care 63 mg/dl (65-105)
[2024-01-01] MEDS: PANTOPRAZOLE 40 MG TABLET PO (10:00)
[2024-01-01] MEDS: DOXYCYCLINE HYCLATE 100 MG TABLET PO ×2 (10:00→20:45)
[2024-01-01] MEDS: FOLIC ACID 1 MG TABLET PO (10:00)
[2024-01-01] MEDS: SACUBITRIL/VALSARTAN 12-13 MG TABLET 1 TAB PO ×2 (10:00→20:45)
[2024-01-01] MEDS: metFORMIN HCL 500 MG TABLET 1000 MG PO ×2 (10:00→17:33)
[2024-01-01] MEDS: ASPIRIN 81 MG ENTERIC TABLET PO (10:00)
[2024-01-01] MEDS: METOPROLOL SUCCINATE EXT REL 25 MG TABCR PO (10:00)
[2024-01-01] MEDS: BUMETANIDE 1 MG TABLET PO (10:00)
[2024-01-01 11:01] LABS: Glucose Point of Care 149 mg/dl (65-105)
[2024-01-01] MEDS: FLUCONAZOLE 100 MG TABLET 200 MG PO (11:40)
--- NOTE | 2024-01-01 11:42 | PM.IMPN ---
Progress Note: A&P Assessment and Plan (1) Acute respiratory failure: Qualifiers: Respiratory failure complication: unspecified whether with hypoxia or hypercapnia Qualified Code(s): J96.00 - Acute respiratory failure, unspecified whether with hypoxia or hypercapnia Code(s): J96.00 - Acute respiratory failure, unspecified whether with hypoxia or hypercapnia Status: Acute Assessment and Plan: Acute on chronic multifactorial Respiratory failure secondary to COPD exacerbation, encephalopathy, large right pleural effusion, pneumonia, lung nodule Chest CT Impression: 2.2 cm left upper lobe pulmonary nodule, highly suspicious for bronchogenic carcinoma, versus other neoplasm. Extensive hepatic metastatic disease. Suspected subtle osseous metastatic lesions in the spine, as detailed above. Moderate to large right pleural effusion and small right pleural effusion. Patchy consolidation and distortion in the right upper lobe. This could reflect atelectasis or possibly post therapy/postoperative change. Correlate with any relevant clinical history. Probable mild pulmonary edema versus infection in the left upper lobe. Right inguinal hernia containing a loop of small bowel. No bowel obstruction or bowel wall thickening. Possible cystitis. Correlate with urinalysis. 12/25 Patient was emergently intubated and placed on mechanical ventilation. -12/29: . Self extubated in the early hours, patient was placed on BiPAP but now on room air with adequate O2 sats, no shortness of breath. -chest x-ray this morning: Stable 2 cm left upper lobe pulmonary nodule. Mild central congestive change and mild pulmonary edema.Right IJ line -currently on room air Echo shows EF less than 15% with dilated cardiomyopathy Continue bronchodilators -continue Solu-Medrol 12/26 ultrasound-guided thoracentesis done on the right side on 1 L fluid was removed 12/27 Continue diuretics. 12/29: Off dobutamine 12/30: Pt on 1L NC after self extubation yesterday and maintaining sats. Respiratory failure likely due to PNA w/sputum positive for MRSA and Pseudomonas. Continue Ceftazidime and Doxy. Continue solumedrol daily. 12/31: Pt stable on continued medications of Ceftazidime and Doxy. On 1L NC currently. No s/s of decompensation. Continue duoneb. 01/01: Continuing meds. Will need to complete meds as ordered until Thursday night to cover the MRSA PNA. Recheck CXR in AM. (2) Pleural effusion, right: Code(s): J90 - Pleural effusion, not elsewhere classified Status: Acute Assessment and Plan: S/P IR drainage 1000 mL 12/30: Site free of any s/s of infection or leakage. No evidence of PTX. 12/31: Decreased lung sounds, but stable oxygenation. 01/01: Nursing staff reminded to wean oxygen for sats >92%. Will re-evaluate with CXR in AM. (3) Hypotension: Code(s): I95.9 - Hypotension, unspecified Status: Resolved Assessment and Plan: Patient became hypotensive post intubation which could be transient secondary to sedation, sepsis and cardiogenic Patient was given 1 L fluid bolus as patient appears to have developed volume overload from the fluids that he received earlier Patient was started levophed infusion to maintain mean arterial pressure which will be continued Off 25% albumin lactic acid level is improving, [id number], - echo showed dilated cardiomyopathy with EF less than 15% 12/27 patient was started on dobutamine infusion. Now OFF dobutamine 12/29 Off Levophed. 12/25; echocardiogram: Summary ? 1. Complete two-dimensional, color flow and Doppler transthoracic echocardiogram is performed. ? 2. Four-chamber dilated cardiomyopathy. EF less than 15% ? 3. Markedly reduced left ventricular systolic function with stigmata of low cardiac output, reduced mitral leaflet excursion and pre closure. ? 4. Mild mitral regurgitation resulting from annular dilation. 12/30: Resolved and maintaining without pressors. 12/31: Stable B
[2024-01-01 12:33] LABS: Glucose Point of Care 138 mg/dl (65-105)
[2024-01-01 17:20] LABS: Glucose Point of Care 220 mg/dl (65-105)
[2024-01-01] MEDS: INSULIN ASPART (*BKC) 100 UNITS/ML SUB-Q (17:33)
[2024-01-01 20:15] LABS: Glucose Point of Care 168 mg/dl (65-105)
[2024-01-01] MEDS: INSULIN GLARGINE (*BKC) 100 UNITS/ML 10 UNITS SUB-Q (20:46)
[2024-01-02] VITALS (14 sets, daily range): BP systolic 83–107; BP diastolic 66–77; PULSE 92–100; RESP 18–20; TEMP 36.1–36.5; O2SAT 95–97
[2024-01-02] MEDS: IPRATROPIUM 0.5 MG/ALBUTEROL SULFATE 2.5 MG AMPUL.NEB 3 ML INHALATION ×4 (02:15→21:02)
[2024-01-02] MEDS: cefTAZidime 2 GM/NS 50 ML 2 GM/50 ML BAG IVPB ×3 (05:09→20:57)
[2024-01-02] MEDS: CENTRAL LINE FLUSH 10 ML IV PUSH ×3 (05:09→20:49)
[2024-01-02] MEDS: HYDROcodone/acetaminophen (*CRX) 5-325 MG TABLET 1 TAB PO ×3 (05:11→20:43)
[2024-01-02 05:48] LABS: Eosinophils Absolute Auto 0.1 K/mm3 (0-0.3); Eosinophils Percent Auto 1.2 % (0-4.4); Hemoglobin 10.3 g/dL (14.0-18.0); Immature Granulocyte Absolute 0.03 K/mm3 (0.00-0.031); Immature Granulocyte Percent A 0.3 % (0-0.5); Immature Platelet Fraction Pct 12.1 % (0.9-11.2); Lymphocytes Absolute Auto 1.09 K/mm3 (0.9-3.2); Lymphocytes Percent Auto 12.2 % (18.3-44.2); Mean Corpuscular HGB Conc 29.4 g/dl (32-36); Mean Corpuscular Hemoglobin 26.1 pg (26-34); Mean Corpuscular Volume 88.8 fl (80-100); Monocytes Absolute Auto 0.4 K/mm3 (0.1-0.6); Neutrophils Absolute Auto 7.3 K/mm3 (1.3-6.7); Neutrophils Percent Auto 82.3 % (45.5-73.1); Platelet Count Result 83 k/mm3 (150-375); Red Blood Count 3.94 M/mm3 (4.6-6.20); Red Cell Distribution Width 18.3 % (11.5-14.5); White Blood Count 8.9 K/mm3 (4.5-10.0)
[2024-01-02 08:33] LABS: Glucose Point of Care 98 mg/dl (65-105)
[2024-01-02] MEDS: ASPIRIN 81 MG ENTERIC TABLET PO (09:15)
[2024-01-02] MEDS: metFORMIN HCL 500 MG TABLET 1000 MG PO ×2 (09:15→16:35)
[2024-01-02] MEDS: SACUBITRIL/VALSARTAN 12-13 MG TABLET 1 TAB PO ×2 (09:15→20:43)
[2024-01-02] MEDS: FLUCONAZOLE 100 MG TABLET 200 MG PO (09:15)
[2024-01-02] MEDS: DOXYCYCLINE HYCLATE 100 MG TABLET PO ×2 (09:15→20:43)
[2024-01-02] MEDS: PANTOPRAZOLE 40 MG TABLET PO (09:15)
[2024-01-02] MEDS: FOLIC ACID 1 MG TABLET PO (09:16)
--- NOTE | 2024-01-02 10:14 | PM.IMPN ---
Progress Note: A&P Assessment and Plan (1) Acute respiratory failure: Qualifiers: Respiratory failure complication: unspecified whether with hypoxia or hypercapnia Qualified Code(s): J96.00 - Acute respiratory failure, unspecified whether with hypoxia or hypercapnia Code(s): J96.00 - Acute respiratory failure, unspecified whether with hypoxia or hypercapnia Status: Acute Assessment and Plan: Acute on chronic multifactorial Respiratory failure secondary to COPD exacerbation, encephalopathy, large right pleural effusion, pneumonia, lung nodule Chest CT Impression: 2.2 cm left upper lobe pulmonary nodule, highly suspicious for bronchogenic carcinoma, versus other neoplasm. Extensive hepatic metastatic disease. Suspected subtle osseous metastatic lesions in the spine, as detailed above. Moderate to large right pleural effusion and small right pleural effusion. Patchy consolidation and distortion in the right upper lobe. This could reflect atelectasis or possibly post therapy/postoperative change. Correlate with any relevant clinical history. Probable mild pulmonary edema versus infection in the left upper lobe. Right inguinal hernia containing a loop of small bowel. No bowel obstruction or bowel wall thickening. Possible cystitis. Correlate with urinalysis. 12/25 Patient was emergently intubated and placed on mechanical ventilation. -12/29: . Self extubated in the early hours, patient was placed on BiPAP but now on room air with adequate O2 sats, no shortness of breath. -chest x-ray this morning: Stable 2 cm left upper lobe pulmonary nodule. Mild central congestive change and mild pulmonary edema.Right IJ line -currently on room air Echo shows EF less than 15% with dilated cardiomyopathy Continue bronchodilators -continue Solu-Medrol 12/26 ultrasound-guided thoracentesis done on the right side on 1 L fluid was removed 12/27 Continue diuretics. 12/29: Off dobutamine 12/30: Pt on 1L NC after self extubation yesterday and maintaining sats. Respiratory failure likely due to PNA w/sputum positive for MRSA and Pseudomonas. Continue Ceftazidime and Doxy. Continue solumedrol daily. 12/31: Pt stable on continued medications of Ceftazidime and Doxy. On 1L NC currently. No s/s of decompensation. Continue duoneb. 01/01: Continuing meds. Will need to complete meds as ordered until Thursday night to cover the MRSA PNA. Recheck CXR in AM. 01/02: Remains on 1L NC w/sats of 97%. Per nursing staff, the pt was weaned yesterday and then required it again overnight. I will order a home oxygen evaluation. CXR from this AM continues to show diffuse PNA in Bilateral lobes. There is also noted concern for Metastatic disease with LN. He is not meeting sepsis criteria nor does he have further symptoms of declining respiratory status at this time, so I suspect that his CXR is largely unchanged from previous. Pt appears euvolemic despite the fact he has severe CHF that is being managed as well as can be by Cardiology. (2) Pleural effusion, right: Code(s): J90 - Pleural effusion, not elsewhere classified Status: Acute Assessment and Plan: S/P IR drainage 1000 mL 12/30: Site free of any s/s of infection or leakage. No evidence of PTX. 12/31: Decreased lung sounds, but stable oxygenation. 01/01: Nursing staff reminded to wean oxygen for sats >92%. Will re-evaluate with CXR in AM. 01/02: Right pleural effusion/thickening remains on CXR this AM. No further oxygen sat decline or respiratory distress noted. Suspect at this point that it is a chronic finding for pt in the setting of his suspected metastatic disease to the lung as well as his current PNA that is unchanged. This will need to be continually monitored closely for worsening and possible repeat Thoracentesis prn. (3) Hypotension: Code(s): I95.9 - Hypotension, unspecified Status: Resolved Assessment and Plan: Patient became hypotensive post intubation which c
[2024-01-02] MEDS: INSULIN GLARGINE (*BKC) 100 UNITS/ML 10 UNITS SUB-Q ×2 (10:18→20:40)
[2024-01-02] MEDS: METOPROLOL SUCCINATE EXT REL 25 MG TABCR PO (10:18)
[2024-01-02 10:26] LABS: Alanine Aminotransferase 38 U/L (6-50); Albumin Level 2.8 g/dL (3.5-5.1); Alkaline Phosphatase 138 U/L (38-126); Anion Gap -1 mmol/L (8-16); Aspartate Amino Transferase 35 U/L (17-59); Blood Urea Nitrogen 22 mg/dL (9-20); Calcium 8.2 mg/dL (8.4-10.2); Carbon Dioxide 39 mmol/L (22-30); Chloride 95 mmol/L (98-107); Estimated CRCL calculation 82 ml/min; Estimated Glomerular Filt Rate > 60; Glucose 122 mg/dL (65-110); Magnesium 1.6 mg/dL (1.6-2.3); Potassium 3.7 mmol/L (3.4-5.0); Sodium 133 mmol/L (137-145)
[2024-01-02 11:53] LABS: Glucose Point of Care 208 mg/dl (65-105)
[2024-01-02] MEDS: INSULIN ASPART (*BKC) 100 UNITS/ML SUB-Q (13:02)
[2024-01-02 13:29] LABS: Soluble Transferrin Receptor 2.87 mg/L (0.76-1.76)
[2024-01-02 17:53] LABS: Glucose Point of Care 83 mg/dl (65-105)
[2024-01-02] MEDS: LORazepam INJ (*CRX) 2 MG/ML VIAL 1 MG IV PUSH ×2 (18:32→22:38)
[2024-01-02 20:20] LABS: Glucose Point of Care 123 mg/dl (65-105)
[2024-01-03] VITALS (13 sets, daily range): BP systolic 90–131; BP diastolic 64–95; PULSE 93–120; RESP 18–34; TEMP 36.2–36.7; O2SAT 92–98
--- NOTE | 2024-01-03 04:15 | PCRCNOTE ---
Patient did not receive 0200 updraft treatment due to being on an overnight oximetry study. Treatment to resume at 0800.
--- NOTE | 2024-01-03 05:34 | PC.NURSE ---
PT ROUNDED AT 0520; SpO2 80% on 1LPM PNC. PT SOMNOLENT BUT RESPONSIVE TO VERBAL AND TACTILE STIMULI. PLACED IN UPRIGHT POSITION AT 90 DEGREES AND O2 PNC INCREASED TO 4LPM PNC; SPO2 98@ ON 4LPM. PT VERBALLY RESPONSIVE BUT CONFUSED AT BASELINE. SPOKE TO DR. HARDING RE: POSSIBLE SEDATION RE: ATIVAN AT 03/02/24 @ 2238 AND ROMAZICON REQUESTED ORDER REQUESTED
[2024-01-03 05:42] LABS: Basophils Percent Auto 0.1 % (0.2-1.2); Eosinophils Absolute Auto 0.1 K/mm3 (0-0.3); Eosinophils Percent Auto 1.1 % (0-4.4); Hematocrit 38.7 % (42.0-52.0); Hemoglobin 11.4 g/dL (14.0-18.0); Immature Granulocyte Absolute 0.04 K/mm3 (0.00-0.031); Immature Granulocyte Percent A 0.3 % (0-0.5); Lymphocytes Absolute Auto 1.03 K/mm3 (0.9-3.2); Lymphocytes Percent Auto 8.3 % (18.3-44.2); Mean Corpuscular HGB Conc 29.5 g/dl (32-36); Mean Corpuscular Hemoglobin 26.4 pg (26-34); Mean Corpuscular Volume 89.6 fl (80-100); Mean Platelet Volume 12.3 fl (7.4-10.4); Monocytes Absolute Auto 0.7 K/mm3 (0.1-0.6); Monocytes Percent Auto 5.5 % (2.6-8.5); Neutrophils Absolute Auto 10.5 K/mm3 (1.3-6.7); Neutrophils Percent Auto 84.7 % (45.5-73.1); Platelet Count Result 146 k/mm3 (150-375); Red Blood Count 4.32 M/mm3 (4.6-6.20); Red Cell Distribution Width 19.2 % (11.5-14.5); White Blood Count 12.4 K/mm3 (4.5-10.0)
[2024-01-03] MEDS: flumazeniL 0.5 MG/5 ML VIAL 0.2 MG IV PUSH (05:54)
[2024-01-03 06:17] LABS: Glucose Point of Care 42 mg/dl (65-105)
[2024-01-03] MEDS: DEXTROSE 50% 25 GM/50 ML SYRINGE IV PUSH (06:20)
--- NOTE | 2024-01-03 06:25 | PC.NURSE ---
0620: CALL TAKEN FROM LAB THAT SERUM GLUCOSE 37 AND SUSPECT DILUTED SPECIMEN; REQUEST REDRAW. BEDSIDE POC GLUCOSE 42 AFTER LABS DRAWN. SPOKE WITH LAB TO RELAY SERUM GLUCOSE LIKELY ACCURATE. STATES NO REDRAW NEEDED; TREATING BS PER HYPOGLYCEMIA PROTOCOL.
[2024-01-03] MEDS: cefTAZidime 2 GM/NS 50 ML 2 GM/50 ML BAG IVPB ×3 (06:28→22:10)
[2024-01-03 06:29] LABS: Alanine Aminotransferase 38 U/L (6-50); Albumin Level 3.3 g/dL (3.5-5.1); Alkaline Phosphatase 150 U/L (38-126); Anion Gap 1 mmol/L (8-16); Aspartate Amino Transferase 38 U/L (17-59); Bilirubin,Total 0.8 mg/dL (0.2-1.3); Blood Urea Nitrogen 21 mg/dL (9-20); Calcium 8.6 mg/dL (8.4-10.2); Carbon Dioxide 38 mmol/L (22-30); Chloride 97 mmol/L (98-107); Estimated CRCL calculation 82 ml/min; Estimated Glomerular Filt Rate > 60; Glucose 37 mg/dL (65-110); Magnesium 1.7 mg/dL (1.6-2.3); Potassium 3.8 mmol/L (3.4-5.0); Sodium 136 mmol/L (137-145)
[2024-01-03] MEDS: CENTRAL LINE FLUSH 10 ML IV PUSH ×3 (06:29→22:07)
--- NOTE | 2024-01-03 06:40 | PC.NURSE ---
REPEAT ACCUCHECK 94MG/DL. O2 DECREASED TO 2LPM. SpO2 95%
[2024-01-03 06:41] LABS: Glucose Point of Care 94 mg/dl (65-105)
--- NOTE | 2024-01-03 08:21 | PM.IMPN ---
Progress Note: A&P Assessment and Plan (1) Acute respiratory failure: Qualifiers: Respiratory failure complication: unspecified whether with hypoxia or hypercapnia Qualified Code(s): J96.00 - Acute respiratory failure, unspecified whether with hypoxia or hypercapnia Code(s): J96.00 - Acute respiratory failure, unspecified whether with hypoxia or hypercapnia Status: Acute Assessment and Plan: Acute on chronic multifactorial Respiratory failure secondary to COPD exacerbation, encephalopathy, large right pleural effusion, pneumonia, lung nodule Chest CT Impression: 2.2 cm left upper lobe pulmonary nodule, highly suspicious for bronchogenic carcinoma, versus other neoplasm. Extensive hepatic metastatic disease. Suspected subtle osseous metastatic lesions in the spine, as detailed above. Moderate to large right pleural effusion and small right pleural effusion. Patchy consolidation and distortion in the right upper lobe. This could reflect atelectasis or possibly post therapy/postoperative change. Correlate with any relevant clinical history. Probable mild pulmonary edema versus infection in the left upper lobe. Right inguinal hernia containing a loop of small bowel. No bowel obstruction or bowel wall thickening. Possible cystitis. Correlate with urinalysis. 12/25 Patient was emergently intubated and placed on mechanical ventilation. -12/29: . Self extubated in the early hours, patient was placed on BiPAP but now on room air with adequate O2 sats, no shortness of breath. -chest x-ray this morning: Stable 2 cm left upper lobe pulmonary nodule. Mild central congestive change and mild pulmonary edema.Right IJ line -currently on room air Echo shows EF less than 15% with dilated cardiomyopathy Continue bronchodilators -continue Solu-Medrol 12/26 ultrasound-guided thoracentesis done on the right side on 1 L fluid was removed 12/27 Continue diuretics. 12/29: Off dobutamine 12/30: Pt on 1L NC after self extubation yesterday and maintaining sats. Respiratory failure likely due to PNA w/sputum positive for MRSA and Pseudomonas. Continue Ceftazidime and Doxy. Continue solumedrol daily. 12/31: Pt stable on continued medications of Ceftazidime and Doxy. On 1L NC currently. No s/s of decompensation. Continue duoneb. 01/01: Continuing meds. Will need to complete meds as ordered until Thursday night to cover the MRSA PNA. Recheck CXR in AM. 01/02: Remains on 1L NC w/sats of 97%. Per nursing staff, the pt was weaned yesterday and then required it again overnight. I will order a home oxygen evaluation. CXR from this AM continues to show diffuse PNA in Bilateral lobes. There is also noted concern for Metastatic disease with LN. He is not meeting sepsis criteria nor does he have further symptoms of declining respiratory status at this time, so I suspect that his CXR is largely unchanged from previous. Pt appears euvolemic despite the fact he has severe CHF that is being managed as well as can be by Cardiology. 01/03: Patient on supplemental O2 at 2L via NC. Per nursing staff patient experienced and episode of desaturation overnight and O2 supplementation was increased. Nursing will continue to wean as appropriate. Unclear of desaturation event in charting. (2) Pleural effusion, right: Code(s): J90 - Pleural effusion, not elsewhere classified Status: Acute Assessment and Plan: S/P IR drainage 1000 mL 12/30: Site free of any s/s of infection or leakage. No evidence of PTX. 12/31: Decreased lung sounds, but stable oxygenation. 01/01: Nursing staff reminded to wean oxygen for sats >92%. Will re-evaluate with CXR in AM. 01/02: Right pleural effusion/thickening remains on CXR this AM. No further oxygen sat decline or respiratory distress noted. Suspect at this point that it is a chronic finding for pt in the setting of his suspected metastatic disease to the lung as well as his current PNA that is unchanged. This will need to be co
[2024-01-03] MEDS: IPRATROPIUM 0.5 MG/ALBUTEROL SULFATE 2.5 MG AMPUL.NEB 3 ML INHALATION ×3 (08:27→19:24)
[2024-01-03 08:30] LABS: Glucose Point of Care 57 mg/dl (65-105)
[2024-01-03] MEDS: FLUCONAZOLE 100 MG TABLET 200 MG PO (08:49)
[2024-01-03] MEDS: DOXYCYCLINE HYCLATE 100 MG TABLET PO ×2 (08:49→20:12)
[2024-01-03] MEDS: FOLIC ACID 1 MG TABLET PO (08:59)
[2024-01-03 09:00] LABS: Glucose Point of Care 73 mg/dl (65-105)
[2024-01-03] MEDS: PANTOPRAZOLE 40 MG TABLET PO (09:00)
[2024-01-03] MEDS: METOPROLOL SUCCINATE EXT REL 25 MG TABCR PO (09:01)
[2024-01-03 11:15] LABS: Hypochromasia 1+ (NORMAL); Ovalocytes 1+ (NORMAL); Platelet Estimate Adequate (Adequate); Schistocytes Rare (NORMAL)
[2024-01-03 12:16] LABS: Glucose Point of Care 278 mg/dl (65-105)
[2024-01-03] MEDS: INSULIN ASPART (*BKC) 100 UNITS/ML SUB-Q ×2 (12:52→17:44)
[2024-01-03] MEDS: SACUBITRIL/VALSARTAN 12-13 MG TABLET 1 TAB PO ×2 (12:52→20:12)
[2024-01-03] MEDS: HYDROcodone/acetaminophen (*CRX) 5-325 MG TABLET 1 TAB PO ×2 (12:55→17:47)
[2024-01-03 17:31] LABS: Glucose Point of Care 281 mg/dl (65-105)
[2024-01-03] MEDS: metFORMIN HCL 500 MG TABLET 1000 MG PO (17:44)
[2024-01-03] MEDS: INSULIN GLARGINE (*BKC) 100 UNITS/ML 10 UNITS SUB-Q (20:13)
[2024-01-03 21:56] LABS: Glucose Point of Care 208 mg/dl (65-105)
[2024-01-03] MEDS: LORazepam INJ (*CRX) 2 MG/ML VIAL 1 MG IV PUSH (22:07)
[2024-01-04] VITALS (14 sets, daily range): BP systolic 96–117; BP diastolic 63–79; PULSE 87–111; RESP 18–34; TEMP 36.1–36.8; O2SAT 94–98
[2024-01-04] MEDS: IPRATROPIUM 0.5 MG/ALBUTEROL SULFATE 2.5 MG AMPUL.NEB 3 ML INHALATION ×4 (01:36→21:09)
[2024-01-04] MEDS: CENTRAL LINE FLUSH 20 ML IV PUSH (04:43)
[2024-01-04] MEDS: CENTRAL LINE FLUSH 10 ML IV PUSH ×3 (04:43→21:17)
[2024-01-04 04:50] LABS: Hematocrit 37.2 % (42.0-52.0); Hemoglobin 10.7 g/dL (14.0-18.0); Mean Corpuscular HGB Conc 28.8 g/dl (32-36); Mean Corpuscular Hemoglobin 26.4 pg (26-34); Mean Corpuscular Volume 91.9 fl (80-100); Mean Platelet Volume 11.7 fl (7.4-10.4); Platelet Count Result 155 k/mm3 (150-375); Red Blood Count 4.05 M/mm3 (4.6-6.20); Red Cell Distribution Width 19.4 % (11.5-14.5); White Blood Count 10.5 K/mm3 (4.5-10.0)
[2024-01-04 05:29] LABS: Alanine Aminotransferase 34 U/L (6-50); Alkaline Phosphatase 137 U/L (38-126); Anion Gap 2 mmol/L (8-16); Aspartate Amino Transferase 37 U/L (17-59); Bilirubin,Total 0.6 mg/dL (0.2-1.3); Blood Urea Nitrogen 20 mg/dL (9-20); Calcium 8.7 mg/dL (8.4-10.2); Carbon Dioxide 38 mmol/L (22-30); Chloride 97 mmol/L (98-107); Estimated CRCL calculation 82 ml/min; Estimated Glomerular Filt Rate > 60; Glucose 47 mg/dL (65-110); Potassium 4.4 mmol/L (3.4-5.0); Sodium 137 mmol/L (137-145)
--- NOTE | 2024-01-04 05:31 | PC.NURSE ---
Lab notified RN of critical glucose result of 47. Hypoglycemic protocol was documented in patient chart and IV dextrose was administered per protocol. Repeat glucose was obtained after administration and glucose was 98.
[2024-01-04] MEDS: DEXTROSE 50% 25 GM/50 ML SYRINGE IV PUSH ×2 (05:32→09:52)
[2024-01-04 05:56] LABS: Glucose Point of Care 98 mg/dl (65-105)
[2024-01-04 08:54] LABS: Glucose Point of Care 42 mg/dl (65-105)
[2024-01-04] MEDS: FLUCONAZOLE 100 MG TABLET 200 MG PO (09:03)
[2024-01-04] MEDS: BUMETANIDE 1 MG TABLET PO (09:03)
[2024-01-04] MEDS: METOPROLOL SUCCINATE EXT REL 25 MG TABCR PO (09:04)
[2024-01-04] MEDS: SACUBITRIL/VALSARTAN 12-13 MG TABLET 1 TAB PO ×2 (09:04→21:16)
[2024-01-04] MEDS: FOLIC ACID 1 MG TABLET PO (09:04)
[2024-01-04] MEDS: PANTOPRAZOLE 40 MG TABLET PO (09:04)
[2024-01-04] MEDS: HYDROcodone/acetaminophen (*CRX) 5-325 MG TABLET 1 TAB PO ×2 (09:08→16:05)
[2024-01-04 09:48] LABS: Glucose Point of Care 63 mg/dl (65-105)
--- NOTE | 2024-01-04 10:25 | PM.IMPN ---
Progress Note: A&P Assessment and Plan (1) Acute respiratory failure: Qualifiers: Respiratory failure complication: unspecified whether with hypoxia or hypercapnia Qualified Code(s): J96.00 - Acute respiratory failure, unspecified whether with hypoxia or hypercapnia Code(s): J96.00 - Acute respiratory failure, unspecified whether with hypoxia or hypercapnia Status: Acute Assessment and Plan: Acute on chronic multifactorial Respiratory failure secondary to COPD exacerbation, encephalopathy, large right pleural effusion, pneumonia, lung nodule Chest CT Impression: 2.2 cm left upper lobe pulmonary nodule, highly suspicious for bronchogenic carcinoma, versus other neoplasm. Extensive hepatic metastatic disease. Suspected subtle osseous metastatic lesions in the spine, as detailed above. Moderate to large right pleural effusion and small right pleural effusion. Patchy consolidation and distortion in the right upper lobe. This could reflect atelectasis or possibly post therapy/postoperative change. Correlate with any relevant clinical history. Probable mild pulmonary edema versus infection in the left upper lobe. Right inguinal hernia containing a loop of small bowel. No bowel obstruction or bowel wall thickening. Possible cystitis. Correlate with urinalysis. 12/25 Patient was emergently intubated and placed on mechanical ventilation. -12/29: . Self extubated in the early hours, patient was placed on BiPAP but now on room air with adequate O2 sats, no shortness of breath. -chest x-ray this morning: Stable 2 cm left upper lobe pulmonary nodule. Mild central congestive change and mild pulmonary edema.Right IJ line -currently on room air Echo shows EF less than 15% with dilated cardiomyopathy Continue bronchodilators -continue Solu-Medrol 12/26 ultrasound-guided thoracentesis done on the right side on 1 L fluid was removed 12/27 Continue diuretics. 12/29: Off dobutamine 12/30: Pt on 1L NC after self extubation yesterday and maintaining sats. Respiratory failure likely due to PNA w/sputum positive for MRSA and Pseudomonas. Continue Ceftazidime and Doxy. Continue solumedrol daily. 12/31: Pt stable on continued medications of Ceftazidime and Doxy. On 1L NC currently. No s/s of decompensation. Continue duoneb. 01/01: Continuing meds. Will need to complete meds as ordered until Thursday night to cover the MRSA PNA. Recheck CXR in AM. 01/02: Remains on 1L NC w/sats of 97%. Per nursing staff, the pt was weaned yesterday and then required it again overnight. I will order a home oxygen evaluation. CXR from this AM continues to show diffuse PNA in Bilateral lobes. There is also noted concern for Metastatic disease with LN. He is not meeting sepsis criteria nor does he have further symptoms of declining respiratory status at this time, so I suspect that his CXR is largely unchanged from previous. Pt appears euvolemic despite the fact he has severe CHF that is being managed as well as can be by Cardiology. 01/03: Patient on supplemental O2 at 2L via NC. Per nursing staff patient experienced and episode of desaturation overnight and O2 supplementation was increased. Nursing will continue to wean as appropriate. Unclear of desaturation event in charting. 01/04: Patient remains on O2 at 2L via NC. Unsure it wean was attempted. Nursing will continue to wean as appropriate (2) Pleural effusion, right: Code(s): J90 - Pleural effusion, not elsewhere classified Status: Acute Assessment and Plan: S/P IR drainage 1000 mL 12/30: Site free of any s/s of infection or leakage. No evidence of PTX. 12/31: Decreased lung sounds, but stable oxygenation. 01/01: Nursing staff reminded to wean oxygen for sats >92%. Will re-evaluate with CXR in AM. 01/02: Right pleural effusion/thickening remains on CXR this AM. No further oxygen sat decline or respiratory distress noted. Suspect at this point that it is a chronic finding for pt in the setting
[2024-01-04 10:32] LABS: Glucose Point of Care 93 mg/dl (65-105)
[2024-01-04 12:43] LABS: Glucose Point of Care 153 mg/dl (65-105)
[2024-01-04] MEDS: metFORMIN HCL 500 MG TABLET 1000 MG PO (17:30)
[2024-01-04 17:38] LABS: Glucose Point of Care 203 mg/dl (65-105)
[2024-01-04] MEDS: INSULIN ASPART (*BKC) 100 UNITS/ML SUB-Q (17:40)
--- NOTE | 2024-01-04 20:32 | ECG_ITS ---
Measurements Intervals [place] Rate: 94 P: 35 GA: 150 QRS: 13 QRSD: 104 T: 186 QT: 360 QTc: 451 Interpretive Statements SINUS RHYTHM MODERATE T-WAVE ABNORMALITY, CONSIDER LATERAL ISCHEMIA [-0.1+ mV T WAVE IN I/aVL/V5/V6] COMPARED TO ECG 12/24/2023 05:12:56 THE RATE IS SLOWER, BUT THE LATERAL T WAVE CHANGES ARE NEW Electronically Signed On 01-05-2024 12:28:22 HOT WORT SETTLER by Tanna Koo M.D.
[2024-01-04] MEDS: ASPIRIN 81 MG CHEWABLE TABLET 324 MG PO (21:16)
[2024-01-04] MEDS: LORazepam INJ (*CRX) 2 MG/ML VIAL 1 MG IV PUSH (21:17)
[2024-01-04 21:36] LABS: Glucose Point of Care 180 mg/dl (65-105)
[2024-01-04 22:11] LABS: Troponin I 0.017 ng/mL (0.000-0.034)
[2024-01-04] MEDS: MORPHINE SULFATE (*CRX) 2 MG/ML INJ IV PUSH (22:11)
[2024-01-05] VITALS (19 sets, daily range): BP systolic 84–100; BP diastolic 54–79; PULSE 78–104; RESP 18–24; TEMP 36–36.6; O2SAT 91–98
--- NOTE | 2024-01-05 00:07 | ECG_ITS ---
Measurements Intervals [place] Rate: 95 P: 29 FL: 154 QRS: 7 QRSD: 103 T: 180 QT: 367 QTc: 462 Interpretive Statements SINUS RHYTHM MODERATE T-WAVE ABNORMALITY, CONSIDER LATERAL ISCHEMIA [-0.1+ mV T WAVE IN I/aVL/V5/V6] COMPARED TO ECG 01/04/2024 20:55:22 NO SIGNIFICANT CHANGES Electronically Signed On 01-05-2024 12:32:10 CROZER OPERATOR by Tanna Koo M.D.
[2024-01-05] MEDS: BELLADONNA ALK/PHENOB ELIX 10 ML, MAG HYDROX/ALUMINUM HYD/SIMETH 30 ML, LIDOCAINE HCL 2... PO (00:26)
[2024-01-05] MEDS: LORazepam INJ (*CRX) 2 MG/ML VIAL 1 MG IV PUSH ×2 (01:11→05:33)
[2024-01-05] MEDS: FUROSEMIDE INJ 40 MG/4 ML VIAL IV PUSH (02:09)
[2024-01-05] MEDS: IPRATROPIUM 0.5 MG/ALBUTEROL SULFATE 2.5 MG AMPUL.NEB 3 ML INHALATION ×4 (02:24→19:30)
--- NOTE | 2024-01-05 03:01 | PM.EVENT ---
Event Note Event Note Event Note: 01/05/2024 approximately 01:30 Patient call nursing staff to stay was having chest pain. Initial EKG and troponin was drawn. EKG not significantly changed from prior. Troponin was flat compared to prior values. Patient's symptoms improved with Ativan. Order for full-dose aspirin provided. The patient had recurrence of symptoms about 3 hours later. Dose of IV morphine was provided. Repeat EKG was performed which demonstrated no significant change. Three are troponin was again flat. GI cocktail was provided without relief in symptoms. I went to evaluate the patient and the patient had a worsening crackles prior to my prior evaluation which was on the day of admission. However he had crackles on bilateral lung bay. He did not have any increase in oxygen requirement but did have some increased tachypnea. The patient's tachypnea was present even with the patient sleeping. He did have some accessory muscle use. On exam patient was noted to have pitting edema in the abdominal wall and in the buttocks and upper thighs. No obvious JVD noted. Prior chest x-rays were reviewed last x-ray was proximally 3-4 days ago and demonstrated bilateral pulmonary edema. Stat chest x-ray was ordered will add was at bedside and and actually appeared improved from prior exams. His weight is up 4 kg from his lowest weight this hospitalization. His fluid balance is negative from admission and at negative for the last 24 hours of 0.5 L. his oxygen requirement is stable. His urine output has been adequate. He has a Willoughby catheter in place. He remains afebrile. Patient is pleasantly confused. He is alert oriented person place and time. He is aware that I was the doctor that to care for him on admission. He does has moments of confusion. After I had left the room and had been out of the room for or approximately 10 minutes the patient was still talking to me as if I was in the I could hear for him from out the varma as I passed his room. Given the patient's significant dependent edema is buttocks and abdominal wall as well as increased weight I will give patient an extra dose of IV Lasix. Will continue monitor strict I&O's. Patient does have known EF of only 15% on recent echocardiogram. He has been continued on Entresto. Patient was having episodes of hypoglycemia. His long-acting insulin was discontinued on the . Patient had remained on high-dose sliding scale insulin but I will change this to moderate sliding scale at this time. Patient was continued on regular diet when he was considering comfort based care. The patient currently wants to get better and go fishing on [place]. Given the patient wants continued intervention I will change the patient's diet to 2 g sodium diet and heart healthy. 40 minute spent in critical care activities. Due to a high probability of clinically significant, life threatening deterioration, the patient required my highest level of preparedness to intervene emergently and I personally spent this critical care time directly and personally managing the patient. This critical care time included obtaining a history; examining the patient; pulse oximetry; ordering and review of studies; arranging urgent treatment with development of a management plan; evaluation of patient's response to treatment; frequent reassessment; and discussions with other providers. It was exclusive of separately billable procedures and treating other patients and teaching time. Please see Assessment and Plan section and the rest of the note for further information on patient assessment and treatment.
[2024-01-05] MEDS: CENTRAL LINE FLUSH 20 ML IV PUSH (04:26)
[2024-01-05] MEDS: CENTRAL LINE FLUSH 10 ML IV PUSH ×3 (04:26→21:49)
[2024-01-05 04:37] LABS: Hematocrit 36.1 % (42.0-52.0); Hemoglobin 10.5 g/dL (14.0-18.0); Mean Corpuscular HGB Conc 29.1 g/dl (32-36); Mean Corpuscular Hemoglobin 26.4 pg (26-34); Mean Corpuscular Volume 90.7 fl (80-100); Mean Platelet Volume 11.7 fl (7.4-10.4); Platelet Count Result 160 k/mm3 (150-375); Red Blood Count 3.98 M/mm3 (4.6-6.20); Red Cell Distribution Width 19.9 % (11.5-14.5); White Blood Count 7.5 K/mm3 (4.5-10.0)
[2024-01-05 04:48] LABS: Alanine Aminotransferase 31 U/L (6-50); Alkaline Phosphatase 152 U/L (38-126); Anion Gap 1 mmol/L (8-16); Aspartate Amino Transferase 36 U/L (17-59); Bilirubin,Total 0.7 mg/dL (0.2-1.3); Blood Urea Nitrogen 20 mg/dL (9-20); Calcium 8.9 mg/dL (8.4-10.2); Carbon Dioxide 38 mmol/L (22-30); Chloride 95 mmol/L (98-107); Estimated CRCL calculation 73 ml/min; Estimated Glomerular Filt Rate > 60; Glucose 158 mg/dL (65-110); Magnesium 1.6 mg/dL (1.6-2.3); Potassium 4.2 mmol/L (3.4-5.0); Sodium 134 mmol/L (137-145)
[2024-01-05 08:05] LABS: Glucose Point of Care 145 mg/dl (65-105)
--- NOTE | 2024-01-05 08:30 | P.PNIM_ITS ---
Progress Note: A&P Assessment and Plan (1) Acute respiratory failure: Qualifiers: Respiratory failure complication: unspecified whether with hypoxia or hypercapnia Qualified Code(s): J96.00 - Acute respiratory failure, unspecified whether with hypoxia or hypercapnia Code(s): J96.00 - Acute respiratory failure, unspecified whether with hypoxia or hypercapnia Status: Acute Assessment and Plan: Acute on chronic multifactorial Respiratory failure secondary to COPD exacerbation, encephalopathy, large right pleural effusion, pneumonia, lung nodule Chest CT Impression: 2.2 cm left upper lobe pulmonary nodule, highly suspicious for bronchogenic carcinoma, versus other neoplasm. Extensive hepatic metastatic disease. Suspected subtle osseous metastatic lesions in the spine, as detailed above. Moderate to large right pleural effusion and small right pleural effusion. Patchy consolidation and distortion in the right upper lobe. This could reflect atelectasis or possibly post therapy/postoperative change. Correlate with any relevant clinical history. Probable mild pulmonary edema versus infection in the left upper lobe. Right inguinal hernia containing a loop of small bowel. No bowel obstruction or bowel wall thickening. Possible cystitis. Correlate with urinalysis. 12/25 Patient was emergently intubated and placed on mechanical ventilation. -12/29: . Self extubated in the early hours, patient was placed on BiPAP but now on room air with adequate O2 sats, no shortness of breath. -chest x-ray this morning: Stable 2 cm left upper lobe pulmonary nodule. Mild central congestive change and mild pulmonary edema.Right IJ line -currently on room air Echo shows EF less than 15% with dilated cardiomyopathy Continue bronchodilators -continue Solu-Medrol 12/26 ultrasound-guided thoracentesis done on the right side on 1 L fluid was removed 12/27 Continue diuretics. 12/29: Off dobutamine 12/30: Pt on 1L NC after self extubation yesterday and maintaining sats. Respiratory failure likely due to PNA w/sputum positive for MRSA and Pseudomon as. Continue Ceftazidime and Doxy. Continue solumedrol daily. 12/31: Pt stable on continued medications of Ceftazidime and Doxy. On 1L NC currently. No s/s of decompensation. Continue duoneb. 01/01: Continuing meds. Will need to complete meds as ordered until Thursday night to cover the MRSA PNA. Recheck CXR in AM. 01/02: Remains on 1L NC w/sats of 97%. Per nursing staff, the pt was weaned yesterday and then required it again overnight. I will order a home oxygen evaluation. CXR from this AM continues to show diffuse PNA in Bilateral lobes. There is also noted concern for Metastatic disease with LN. He is not meeting sepsis criteria nor does he have further symptoms of declining respiratory status at this time, so I suspect that his CXR is largely unchanged from previous. Pt appears euvolemic despite the fact he has severe CHF that is being managed as well as can be by Cardiology. 01/03: Patient on supplemental O2 at 2L via NC. Per nursing staff patient experienced and episode of desaturation overnight and O2 supplementation was increased. Nursing will continue to wean as appropriate. Unclear of desaturation event in charting. 01/04: Patient remains on O2 at 2L via NC. Unsure it wean was attempted. Nursing will continue to wean as appropriate (2) Pleural effusion, right: Code(s): J90 - Pleural effusion, not elsewhere classified Status: Acute Assessment and Plan: S/P IR drainage 1000 mL * 12/30: Site free of any s/s of infection or leakage. No evidence of PTX. * 12/31: Decreased jan
[2024-01-05] MEDS: PANTOPRAZOLE 40 MG TABLET PO (09:41)
[2024-01-05] MEDS: FLUCONAZOLE 100 MG TABLET 200 MG PO (09:41)
[2024-01-05] MEDS: FOLIC ACID 1 MG TABLET PO (09:41)
[2024-01-05] MEDS: BUMETANIDE 1 MG TABLET PO (09:46)
[2024-01-05] MEDS: METOPROLOL SUCCINATE EXT REL 25 MG TABCR PO (09:46)
[2024-01-05] MEDS: SACUBITRIL/VALSARTAN 12-13 MG TABLET 1 TAB PO (09:46)
[2024-01-05 11:45] LABS: Glucose Point of Care 221 mg/dl (65-105)
[2024-01-05 11:45] LABS: Glucose Point of Care 235 mg/dl (65-105)
--- NOTE | 2024-01-05 11:55 | ECG_ITS ---
Measurements Intervals [place] Rate: 97 P: 38 RI: 148 QRS: 9 QRSD: 101 T: 205 QT: 365 QTc: 465 Interpretive Statements SINUS RHYTHM MODERATE T-WAVE ABNORMALITY, CONSIDER LATERAL ISCHEMIA [-0.1+ mV T WAVE IN I/aVL/V5/V6] COMPARED TO ECG 01/05/2024 00:22:30 NO SIGNIFICANT CHANGES Electronically Signed On 01-05-2024 12:47:48 DIAPER FOLDER by Tanna Koo M.D.
[2024-01-05 13:08] LABS: Glucose Point of Care 319 mg/dl (65-105)
[2024-01-05] MEDS: INSULIN ASPART (*BKC) 100 UNITS/ML SUB-Q (13:10)
[2024-01-05] MEDS: ACETAMINOPHEN 500 MG TABLET 1000 MG PO ×2 (13:24→22:18)
[2024-01-05 13:25] LABS: Troponin I 0.013 ng/mL (0.000-0.034)
--- NOTE | 2024-01-05 14:02 | PM.DS ---
DS: Admitting Diagnosis Discharge Date 01/05/24 Admitting Diagnosis Adult failure to thrive, Sepsis, Dehydration, Acute UTI, Pulmonary nodule, Metastasis DS: Discharge Diagnosis Discharge Diagnosis (1) Acute respiratory failure: Qualifiers: Respiratory failure complication: unspecified whether with hypoxia or hypercapnia Qualified Code(s): J96.00 - Acute respiratory failure, unspecified whether with hypoxia or hypercapnia Code(s): J96.00 - Acute respiratory failure, unspecified whether with hypoxia or hypercapnia Status: Acute Assessment and Plan: Acute on chronic multifactorial Respiratory failure secondary to COPD exacerbation, encephalopathy, large right pleural effusion, pneumonia, lung nodule Chest CT Impression: 2.2 cm left upper lobe pulmonary nodule, highly suspicious for bronchogenic carcinoma, versus other neoplasm. Extensive hepatic metastatic disease. Suspected subtle osseous metastatic lesions in the spine, as detailed above. Moderate to large right pleural effusion and small right pleural effusion. Patchy consolidation and distortion in the right upper lobe. This could reflect atelectasis or possibly post therapy/postoperative change. Correlate with any relevant clinical history. Probable mild pulmonary edema versus infection in the left upper lobe. Right inguinal hernia containing a loop of small bowel. No bowel obstruction or bowel wall thickening. Possible cystitis. Correlate with urinalysis. 12/25 Patient was emergently intubated and placed on mechanical ventilation. -12/29: . Self extubated in the early hours, patient was placed on BiPAP but now on room air with adequate O2 sats, no shortness of breath. -chest x-ray this morning: Stable 2 cm left upper lobe pulmonary nodule. Mild central congestive change and mild pulmonary edema.Right IJ line -currently on room air Echo shows EF less than 15% with dilated cardiomyopathy Continue bronchodilators -continue Solu-Medrol 12/26 ultrasound-guided thoracentesis done on the right side on 1 L fluid was removed 12/27 Continue diuretics. 12/29: Off dobutamine 12/30: Pt on 1L NC after self extubation yesterday and maintaining sats. Respiratory failure likely due to PNA w/sputum positive for MRSA and Pseudomonas. Continue Ceftazidime and Doxy. Continue solumedrol daily. 12/31: Pt stable on continued medications of Ceftazidime and Doxy. On 1L NC currently. No s/s of decompensation. Continue duoneb. 01/01: Continuing meds. Will need to complete meds as ordered until Thursday night to cover the MRSA PNA. Recheck CXR in AM. 01/02: Remains on 1L NC w/sats of 97%. Per nursing staff, the pt was weaned yesterday and then required it again overnight. I will order a home oxygen evaluation. CXR from this AM continues to show diffuse PNA in Bilateral lobes. There is also noted concern for Metastatic disease with LN. He is not meeting sepsis criteria nor does he have further symptoms of declining respiratory status at this time, so I suspect that his CXR is largely unchanged from previous. Pt appears euvolemic despite the fact he has severe CHF that is being managed as well as can be by Cardiology. 01/03: Patient on supplemental O2 at 2L via NC. Per nursing staff patient experienced and episode of desaturation overnight and O2 supplementation was increased. Nursing will continue to wean as appropriate. Unclear of desaturation event in charting. 01/04: Patient remains on O2 at 2L via NC. Unsure it wean was attempted. Nursing will continue to wean as appropriate 01/05: Patient remains on O2 at 2L via NC. This OIL WELL DIRECTIONAL SURVEYOR was informed by RT and CC that patient would not require home O2 study because his O2 can be addressed through care provider and SNF [facility] would be able to support this. Patient stated he is excited to discharge to [facility] for continued care, he is decisionable and his code status will remain the same at time of discharge. . (2) Pleural effusion, right: C
[2024-01-05 17:11] LABS: Glucose Point of Care 162 mg/dl (65-105)
--- NOTE | 2024-01-05 17:21 | PM.IMPN ---
Progress Note: A&P Assessment and Plan (1) Acute respiratory failure: Qualifiers: Respiratory failure complication: unspecified whether with hypoxia or hypercapnia Qualified Code(s): J96.00 - Acute respiratory failure, unspecified whether with hypoxia or hypercapnia Code(s): J96.00 - Acute respiratory failure, unspecified whether with hypoxia or hypercapnia Status: Acute Assessment and Plan: Acute on chronic multifactorial Respiratory failure secondary to COPD exacerbation, encephalopathy, large right pleural effusion, pneumonia, lung nodule Chest CT Impression: 2.2 cm left upper lobe pulmonary nodule, highly suspicious for bronchogenic carcinoma, versus other neoplasm. Extensive hepatic metastatic disease. Suspected subtle osseous metastatic lesions in the spine, as detailed above. Moderate to large right pleural effusion and small right pleural effusion. Patchy consolidation and distortion in the right upper lobe. This could reflect atelectasis or possibly post therapy/postoperative change. Correlate with any relevant clinical history. Probable mild pulmonary edema versus infection in the left upper lobe. Right inguinal hernia containing a loop of small bowel. No bowel obstruction or bowel wall thickening. Possible cystitis. Correlate with urinalysis. 12/25 Patient was emergently intubated and placed on mechanical ventilation. -12/29: . Self extubated in the early hours, patient was placed on BiPAP but now on room air with adequate O2 sats, no shortness of breath. -chest x-ray this morning: Stable 2 cm left upper lobe pulmonary nodule. Mild central congestive change and mild pulmonary edema.Right IJ line -currently on room air Echo shows EF less than 15% with dilated cardiomyopathy Continue bronchodilators -continue Solu-Medrol 12/26 ultrasound-guided thoracentesis done on the right side on 1 L fluid was removed 12/27 Continue diuretics. 12/29: Off dobutamine 12/30: Pt on 1L NC after self extubation yesterday and maintaining sats. Respiratory failure likely due to PNA w/sputum positive for MRSA and Pseudomonas. Continue Ceftazidime and Doxy. Continue solumedrol daily. 12/31: Pt stable on continued medications of Ceftazidime and Doxy. On 1L NC currently. No s/s of decompensation. Continue duoneb. 01/01: Continuing meds. Will need to complete meds as ordered until Thursday night to cover the MRSA PNA. Recheck CXR in AM. 01/02: Remains on 1L NC w/sats of 97%. Per nursing staff, the pt was weaned yesterday and then required it again overnight. I will order a home oxygen evaluation. CXR from this AM continues to show diffuse PNA in Bilateral lobes. There is also noted concern for Metastatic disease with LN. He is not meeting sepsis criteria nor does he have further symptoms of declining respiratory status at this time, so I suspect that his CXR is largely unchanged from previous. Pt appears euvolemic despite the fact he has severe CHF that is being managed as well as can be by Cardiology. 01/03: Patient on supplemental O2 at 2L via NC. Per nursing staff patient experienced and episode of desaturation overnight and O2 supplementation was increased. Nursing will continue to wean as appropriate. Unclear of desaturation event in charting. 01/04: Patient remains on O2 at 2L via NC. Unsure it wean was attempted. Nursing will continue to wean as appropriate 01/05: patient remains on 2L of O2 via NC. Nursing note that due to overnight episode of chest pain and work up, patient remain on 2L at all times. Lungs are diminished bilaterally. Crackles are heard in upper lobes, noted mostly on right side. Patient abdomen presents with some edema at time of assessment, patient denied pain at this noted site. Pt on 2L O2 via NC. tachypnic but denied difficulty breathing at this time. RT and CC made this provider aware that patient would not need home O2 exam as he would be discharging to a SNF, and would potentially be followed by [facility] [place] who could a
[2024-01-05 21:42] LABS: Glucose Point of Care 199 mg/dl (65-105)
[2024-01-05] MEDS: MIDODRINE HCL 2.5 MG TABLET 5 MG PO (21:49)
[2024-01-06] VITALS (9 sets, daily range): BP systolic 89–98; BP diastolic 70–71; PULSE 80–106; RESP 18–34; TEMP 36.1–36.3; O2SAT 94–100
[2024-01-06] MEDS: IPRATROPIUM 0.5 MG/ALBUTEROL SULFATE 2.5 MG AMPUL.NEB 3 ML INHALATION ×3 (01:36→14:16)
[2024-01-06] MEDS: MIDODRINE HCL 2.5 MG TABLET 5 MG PO ×2 (05:35→14:56)
[2024-01-06] MEDS: ACETAMINOPHEN 500 MG TABLET 1000 MG PO (05:35)
[2024-01-06] MEDS: CENTRAL LINE FLUSH 10 ML IV PUSH (05:35)
[2024-01-06 07:44] LABS: Glucose Point of Care 197 mg/dl (65-105)
[2024-01-06] MEDS: FLUCONAZOLE 100 MG TABLET 200 MG PO (08:00)
[2024-01-06] MEDS: METOPROLOL SUCCINATE EXT REL 25 MG TABCR PO (08:00)
[2024-01-06] MEDS: FOLIC ACID 1 MG TABLET PO (08:00)
[2024-01-06] MEDS: BUMETANIDE 1 MG TABLET PO (08:00)
[2024-01-06] MEDS: PANTOPRAZOLE 40 MG TABLET PO (08:00)
[2024-01-06] MEDS: HYDROcodone/acetaminophen (*CRX) 5-325 MG TABLET 1 TAB PO ×2 (08:00→14:01)
--- NOTE | 2024-01-06 11:03 | PM.PNCARD ---
Progress Note: A&P Assessment and Plan (1) Cardiomyopathy: Qualifiers: Cardiomyopathy type: dilated Qualified Code(s): I42.0 - Dilated cardiomyopathy Code(s): I42.9 - Cardiomyopathy, unspecified Status: Acute Assessment and Plan: Severe LV systolic dysfunction EF less than 15% with four-chamber enlargement consistent with dilated cardiomyopathy.? Prior documentation of EF June 2023 was 30-35% per mention in the records. Patient was receiving chemotherapy but none since summer in which his regimen remains unknown at this time.? Will need to assess for cardiac toxicity with regards to his regimen and or further evidence of history of cardiomyopathy and or CHF. Patient is not a candidate for any chemotherapy which may pose risk for cardiac toxicity. Etiology remains unclear although seems to be less likely multivessel CAD given clinical circumstances and more likely nonischemic if this cannot be confirmed at this time.? Patient is not a candidate for invasive angiography nor noninvasive ischemic stress testing at this time.? Patient high risk for life-threatening or potential fatal ventricular arrhythmias given severe LV dysfunction.? Given poor prognosis in light of metastatic hepatocellular carcinoma candidacy for ICD implantation highly questionable even if patient is able make a full recovery.? -Entresto discontinued due to low blood pressures. -Continue Toprol. -Continue PO Bumex daily. -Midodrine added for low blood pressures with improvement, continue. (2) CHF (congestive heart failure): Qualifiers: Heart failure type: systolic Heart failure chronicity: acute Qualified Code(s): I50.21 - Acute systolic (congestive) heart failure Code(s): I50.9 - Heart failure, unspecified Status: Acute Assessment and Plan: Continue Bumex 1 mg p.o. daily. As above, monitor volume status closely, input and output, daily weight. Less than 2 g daily sodium intake. Optimize guideline directed medical therapy as tolerated. Patient is not a candidate for invasive angiography at this time. (3) Acute respiratory failure: Qualifiers: Respiratory failure complication: unspecified whether with hypoxia or hypercapnia Qualified Code(s): J96.00 - Acute respiratory failure, unspecified whether with hypoxia or hypercapnia Code(s): J96.00 - Acute respiratory failure, unspecified whether with hypoxia or hypercapnia Status: Acute Assessment and Plan: Acute on chronic multifactorial contribution with history of O2 dependent COPD, underlying pneumonia, severe LV dysfunction CHF.? Patient also has evidence of probable metastatic cancer to the lung as well with 2.2 cm left upper lobe pulmonary nodule highly suspicious for bronchogenic carcinoma.? There was evidence for extensive hepatic metastatic disease as well.? 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 Defer to Oncology. Appreciate their involvement and recommendations. (5) COPD (chronic obstructive pulmonary disease): Qualifiers: COPD type: unspecified COPD Qualified Code(s): J44.9 - Chronic obstructive pulmonary disease, unspecified Code(s): J44.9 - Chronic obstructive pulmonary disease, unspecified Status: Chronic Assessment and Plan: History of O2 dependent COPD.? Management as per primary team. (6) Type 2 diabetes mellitus: Code(s): E11.9 - Type 2 diabetes mellitus without complications Status: Acute Assessment and Plan: Continue Lantus insulin and monitor glucose per protocol. Metformin 1000 mg twice daily resumed. Defer to primary service. (7) Sepsis: Qualifiers: Sepsis acute organ dysfunction status: wi
[2024-01-06 11:51] LABS: Glucose Point of Care 203 mg/dl (65-105)
[2024-01-06] MEDS: INSULIN ASPART (*BKC) 100 UNITS/ML SUB-Q (12:04)
--- NOTE | 2024-01-06 12:43 | PM.DS ---
DS: Admitting Diagnosis Discharge Date 01/06/24 Admitting Diagnosis dyspnea, acute on chronic CHF DS: Discharge Diagnosis Discharge Diagnosis (1) Acute respiratory failure: Qualifiers: Respiratory failure complication: unspecified whether with hypoxia or hypercapnia Qualified Code(s): J96.00 - Acute respiratory failure, unspecified whether with hypoxia or hypercapnia Code(s): J96.00 - Acute respiratory failure, unspecified whether with hypoxia or hypercapnia Status: Acute Assessment and Plan: Acute on chronic multifactorial Respiratory failure secondary to COPD exacerbation, encephalopathy, large right pleural effusion, pneumonia, lung nodule Chest CT Impression: 2.2 cm left upper lobe pulmonary nodule, highly suspicious for bronchogenic carcinoma, versus other neoplasm. Extensive hepatic metastatic disease. Suspected subtle osseous metastatic lesions in the spine, as detailed above. Moderate to large right pleural effusion and small right pleural effusion. Patchy consolidation and distortion in the right upper lobe. This could reflect atelectasis or possibly post therapy/postoperative change. Correlate with any relevant clinical history. Probable mild pulmonary edema versus infection in the left upper lobe. Right inguinal hernia containing a loop of small bowel. No bowel obstruction or bowel wall thickening. Possible cystitis. Correlate with urinalysis. 12/25 Patient was emergently intubated and placed on mechanical ventilation. -12/29: . Self extubated in the early hours, patient was placed on BiPAP but now on room air with adequate O2 sats, no shortness of breath. -chest x-ray this morning: Stable 2 cm left upper lobe pulmonary nodule. Mild central congestive change and mild pulmonary edema.Right IJ line -currently on room air Echo shows EF less than 15% with dilated cardiomyopathy Continue bronchodilators -continue Solu-Medrol 12/26 ultrasound-guided thoracentesis done on the right side on 1 L fluid was removed 12/27 Continue diuretics. 12/29: Off dobutamine 12/30: Pt on 1L NC after self extubation yesterday and maintaining sats. Respiratory failure likely due to PNA w/sputum positive for MRSA and Pseudomonas. Continue Ceftazidime and Doxy. Continue solumedrol daily. 12/31: Pt stable on continued medications of Ceftazidime and Doxy. On 1L NC currently. No s/s of decompensation. Continue duoneb. 01/01: Continuing meds. Will need to complete meds as ordered until Thursday night to cover the MRSA PNA. Recheck CXR in AM. 01/02: Remains on 1L NC w/sats of 97%. Per nursing staff, the pt was weaned yesterday and then required it again overnight. I will order a home oxygen evaluation. CXR from this AM continues to show diffuse PNA in Bilateral lobes. There is also noted concern for Metastatic disease with LN. He is not meeting sepsis criteria nor does he have further symptoms of declining respiratory status at this time, so I suspect that his CXR is largely unchanged from previous. Pt appears euvolemic despite the fact he has severe CHF that is being managed as well as can be by Cardiology. 01/03: Patient on supplemental O2 at 2L via NC. Per nursing staff patient experienced and episode of desaturation overnight and O2 supplementation was increased. Nursing will continue to wean as appropriate. Unclear of desaturation event in charting. 01/04: Patient remains on O2 at 2L via NC. Unsure it wean was attempted. Nursing will continue to wean as appropriate 01/05: patient remains on 2L of O2 via NC. Nursing note that due to overnight episode of chest pain and work up, patient remain on 2L at all times. Lungs are diminished bilaterally. Crackles are heard in upper lobes, noted mostly on right side. Patient abdomen presents with some edema at time of assessment, patient denied pain at this noted site. Pt on 2L O2 via NC. tachypnic but denied difficulty breathing at this time. RT and CC made this provider aware that patient would not need h
[2024-01-06 16:23] LABS: Glucose Point of Care 231 mg/dl (65-105)
== END 2024-01-06 18:32 | DRG 871 ==
LOC: ANHED 07:29 → ANH3MEDSUR 09:04 → ANHICU 12-25 14:53 → ANH2MED 12-30 04:56
PROVIDERS: Internal Medicine; Nurse Practitioner; Nurse Practitioner Adult Health; Nurse Practitioner Family; Admitting Provider Internal Medicine; Emergency Provider Student in an Organized Health Care Education/Training Program; PCP Internal Medicine; Visit Provider Internal Medicine Critical Care Medicine
DX: A41.9 Sepsis, unspecified organism (principal); I50.23 Acute on chronic systolic (congestive) heart failure; J96.21 Acute and chronic respiratory failure with hypoxia; J15.212 Pneumonia due to Methicillin resistant Staphylococcus aureus; C79.51 Secondary malignant neoplasm of bone; B37.49 Other urogenital candidiasis; I69.351 Hemiplegia and hemiparesis following cerebral infarction affecting right dominant side; J90 Pleural effusion, not elsewhere classified; J44.0 Chronic obstructive pulmonary disease with (acute) lower respiratory infection; I42.0 Dilated cardiomyopathy; C22.0 Liver cell carcinoma; R44.3 Hallucinations, unspecified; J44.1 Chronic obstructive pulmonary disease with (acute) exacerbation; G93.40 Encephalopathy, unspecified; T17.918A Gastric contents in respiratory tract, part unspecified causing other injury, initial encounter; E86.0 Dehydration; E11.65 Type 2 diabetes mellitus with hyperglycemia; R91.1 Solitary pulmonary nodule; D69.6 Thrombocytopenia, unspecified; E11.649 Type 2 diabetes mellitus with hypoglycemia without coma; B95.62 Methicillin resistant Staphylococcus aureus infection as the cause of diseases classified elsewhere; B96.5 Pseudomonas (aeruginosa) (mallei) (pseudomallei) as the cause of diseases classified elsewhere; G47.33 Obstructive sleep apnea (adult) (pediatric); E11.42 Type 2 diabetes mellitus with diabetic polyneuropathy; R62.7 Adult failure to thrive; Z96.1 Presence of intraocular lens; Z20.822 Contact with and (suspected) exposure to COVID-19; Z66 Do not resuscitate; Z98.42 Cataract extraction status, left eye; Z98.41 Cataract extraction status, right eye; Z87.891 Personal history of nicotine dependence; Z99.81 Dependence on supplemental oxygen; Z68.26 Body mass index [BMI] 26.0-26.9, adult
CPT/HCPCS: 32555; 36415; 36600; 70450; 71045; 71260; 74177; 80053; 80307; 81001; 82375; 82550; 82607; 82728; 82746; 82805; 82945; 82947; 82948; 83036; 83050; 83540; 83550; 83605; 83615; 83690; 83735; 83880; 83921; 83986; 84145; 84155; 84157; 84238; 84443; 84484; 85025; 85027; 85055; 85610; 85730; 86140; 87040; 87070; 87075; 87086; 87181; 87186; 87205; 87637; 87641; 89051; 92526; 92610; 92611; 93005; 93306; 94002; 94003; 94640; 94660; 94762; 96360; 97110; 97162; 97166; 97530; 97535; 99285; A9270; C1751; C1752; J0456; J0696; J0713; J0780; J1250; J1650; J1756; J1815; J1939; J1940; J2060; J2250; J2270; J2930; J3010; J3370; J3475; J7030; J7050; J7512; P9047; Q9967